=== PATIENT | female | born 1930 | race Caucasian/White ===

== ENCOUNTER 2018-02-20 13:21 | Inpatient (IN) | payer MEDICARE ==
--- NOTE | 2018-02-20 14:39 | ED PDOC ---
Addendum entered and electronically signed by Julia Williamson PA-C 02/20/18 15:32: Addendum Addendum: 02/20/18 15:32 Pt comfortable at rest, declined analgesics upon arrival Original Note: HPI: Trauma/Fall - HPI Time Seen by Provider: 02/20/18 14:12 Chief Complaint (Nursing): Trauma Chief Complaint (Provider): Hip pain History Per: Patient Additional Complaint(s): 87 yo female, PMH of high cholesterol and DM, presents to ED S/P fall - patient states she missed a step and fell onto her left hip. Unable to ambulate after incident, Pt was carried by [employer] members to bench. Pt denies any head injury, offers no other physical complaints. Pt with left hip externally rotated and shortened in comparison to right. PMD; Demarcco Past Medical History Reviewed: Nursing Documentation, Vital Signs Vital Signs: Last Vital Signs Temp 97.9 F 02/20/18 13:26 Pulse 80 02/20/18 13:26 Resp 18 02/20/18 13:26 BP 139/70 02/20/18 13:26 Pulse Ox 94 L 02/20/18 13:26 - Medical History PMH: HTN, Hypercholesterolemia - Family History Family History: States: Unknown Family Hx - Living Arrangements Living Arrangements: With Family - Social History Current smoker - smoking cessation education provided: No Alcohol: None Drugs: Denies - Home Medications Home Medications: Ambulatory Orders Medication Instructions Recorded Allopurinol [Zyloprim] 100 mg PO DAILY 02/20/18 Simvastatin [Zocor] 20 mg PO HS 02/20/18 Triamterene/Hydrochlorothiazid 1 cap PO DAILY 02/20/18 [Triamterene-Hctz 37.5-25 mg Cp] metFORMIN [glucOPHAGE] 500 mg PO DAILY 02/20/18 - Allergies Allergies/Adverse Reactions: Allergies Allergy/AdvReac Type Severity Reaction Status Date / Time No Known Allergies Allergy Verified 02/20/18 13:26 Review of Systems ROS Statement: Except As Marked, All Systems Reviewed And Found Negative Musculoskeletal: Positive for: Other (L hip pain) Physical Exam - Reviewed Nursing Documentation Reviewed: Yes Vital Signs Reviewed: Yes - Physical Exam Appears: Positive for: Well, Non-toxic, No Acute Distress Head Exam: Positive for: ATRAUMATIC, NORMAL INSPECTION, NORMOCEPHALIC Skin: Positive for: Normal Color, Warm, DRY Eye Exam: Positive for: EOMI, Normal appearance, PERRL ENT: Positive for: Normal ENT Inspection Neck: Positive for: Normal, Painless ROM Cardiovascular/Chest: Positive for: Regular Rate, Rhythm Respiratory: Positive for: CNT, Normal Breath Sounds Gastrointestinal/Abdominal: Positive for: Normal Exam, Soft Back: Positive for: Normal Inspection Extremity: Positive for: Tenderness (L hip), Deformity (shortened and externally rotated) Neurologic/Psych: Positive for: Alert, Oriented - ECG O2 Sat by Pulse Oximetry: 94 Medical Decision Making Medical Decision Making: IV access established and prophylactic pre-op testing obtained XR: (+) L femoral neck fx, as read by PA-C Hospitalist contacted and made aware. Arrangements made for admission. Case d/w Dr. Dyer Disposition - Clinical Impression Clinical Impression: Hip fracture, left - Patient ED Disposition Is Patient to be Admitted: Yes - Disposition Disposition Time: 15:31 Condition: STABLE Forms: [employer] (Paraguayan) - Pt Status Changed To: Hospital Disposition Of: Inpatient - Admit Certification Admit to Inpatient:: After my assessment, the patient will require hospitalization for at least two midnights. This is because of the severity of symptoms shown, intensity of services needed, and/or the medical risk in this patient being treated as an outpatient. - POA Present On Arrival: Falls Or Trauma
--- NOTE | 2018-02-20 15:16 | RAD ---
Date of service: 02/20/2018 PROCEDURE: CHEST RADIOGRAPH, 1 VIEW HISTORY: pre op COMPARISON: None available. FINDINGS: LUNGS: The lungs are well inflated and clear. PLEURA: No pneumothorax or pleural effusion. CARDIOVASCULAR: The heart is normal in size. No aortic atherosclerotic calcifications present. OSSEOUS STRUCTURES: There is mild dextroscoliosis in the thoracic spine. VISUALIZED UPPER ABDOMEN: Normal. OTHER FINDINGS: None. IMPRESSION: No active pulmonary disease.
--- NOTE | 2018-02-20 15:31 | RAD ---
PROCEDURE: Left Hip X-ray Radiographs. HISTORY: fall, externally rotated LLE COMPARISON: None. FINDINGS: BONES: Left hip subcapital femoral neck fracture with mild superior migration of the distal fracture segment. JOINTS: Spine and bilateral hip degenerative changes. SOFT TISSUES: Normal. OTHER FINDINGS: None. IMPRESSION: Left subcapital femoral neck fracture.
--- NOTE | 2018-02-20 15:38 | CT ---
PROCEDURE: CT scan of the left hip without contrast INDICATION: Fall TECHNIQUE: Multiple axial images were obtained with slice thickness of 2.5 mm. Coronal and sagittal reformatted images were obtained. Iterative reconstruction was used. Radiation dose: Total exam DLP = 435.47 mGy-cm. This CT exam was performed using one or more of the following dose reduction techniques: Automated exposure control, adjustment of the mA and/or kV according to patient size, and/or use of iterative reconstruction technique. COMPARISON: Plain radiographs performed the same day FINDINGS: There is an acute nondisplaced mildly impacted left femoral subcapital fracture with 8 mm distraction of fracture fragments superior laterally. There is diffuse bone demineralization. Bone alignment is normal. The left hip joint space is preserved. The visualized muscles and soft tissues are normal. There is mild subcutaneous edema. IMPRESSION: Acute nondisplaced mildly impacted left femoral subcapital fracture with 8 mm distraction of fracture fragments superolaterally. No dislocation.
--- NOTE | 2018-02-20 16:30 | CP.PCM.HP ---
<Jael Chaney - Last Filed: 02/20/18 17:34> History of Present Illness - History of Present Illness History of Present Illness: 87 yo female with history of diabetes?, hypercholesterolemia, gout presented to ED due to fall. She fell when she slipped down the steps at [employer] and landed on her left hip. Pt was carried by [employer] members to bench. Pt denies any head injury, offers no other physical complaints. Hip imaging showed left subcapital femoral neck fracture. Hip CT showed acute nondisplaced mildly impacted left femoral subcapital fracture with 8 mm distraction of fracture fragments superolaterally, no dislocation. CXR done in ED - no active pulmonary disease PMD: Dr. Gomez Meds: Metformin, Simvastatin, Allopurinol, Dyazide, Meclezine PRN Past Surg hx: hysterectomy, bladder prolapse surg? Social hx: denies smoking currently (had smoked 30+ yrs ago), alcohol, drugs Family hx: noncontributory Present on Admission - Present on Admission Any Indicators Present on Admission: No Review of Systems - Review of Systems All systems: reviewed and no additional remarkable complaints except - Cardiovascular Cardiovascular: absent: Chest Pain - Respiratory Respiratory: absent: Dyspnea - Gastrointestinal Gastrointestinal: absent: Abdominal Pain - Musculoskeletal Musculoskeletal: Limited Range of Motion (hip) Past Patient History - Past Social History Smoking Status: Former Smoker Alcohol: None Drugs: Denies - CARDIAC Hx Cardiac Disorders: Yes Hx Hypercholesterolemia: Yes - PULMONARY Hx Respiratory Disorders: No - NEUROLOGICAL Hx Neurological Disorder: No - HEENT Hx HEENT Problems: No - SURGICAL HISTORY Hx Hysterectomy: Yes - ANESTHESIA Hx Anesthesia: Yes Meds Allergies/Adverse Reactions: Allergies Allergy/AdvReac Type Severity Reaction Status Date / Time No Known Allergies Allergy Verified 02/20/18 13:26 Physical Exam - Constitutional Appears: Non-toxic, No Acute Distress - Head Exam Head Exam: NORMAL INSPECTION - Eye Exam Eye Exam: Normal appearance - ENT Exam ENT Exam: Mucous Membranes Moist - Respiratory Exam Respiratory Exam: NORMAL BREATHING PATTERN - Cardiovascular Exam Cardiovascular Exam: REGULAR RHYTHM, +S1, +S2 - GI/Abdominal Exam GI & Abdominal Exam: Normal Bowel Sounds, Soft - Extremities Exam Extremities exam: Negative for: calf tenderness Additional comments: left lower extremity externally rotated and shortened in comparison to right - Neurological Exam Neurological exam: Alert Additional comments: Oriented - Psychiatric Exam Psychiatric exam: Normal Affect - Skin Skin Exam: Dry, Warm Results - Vital Signs Recent Vital Signs: Last Vital Signs Temp 97.9 F 02/20/18 13:26 Pulse 80 02/20/18 13:26 Resp 18 02/20/18 13:26 BP 139/70 02/20/18 13:26 Pulse Ox 94 L 02/20/18 15:31 - Labs Result Diagrams: 02/20/18 16:00 02/20/18 16:00 Assessment & Plan - Assessment and Plan (Free Text) Assessment: 87 yo F with history of diabetes, hypercholesterolemia, gout, with acute left hip fracture. Pt is hemodynamically stable. Ortho has been consulted, pending OR, possibly tomorrow. Will need cardiac clearance prior to OR. Plan: 1. S/p acute left hip fracture - Ortho consult; possible OR tomorrow afternoon - Needs cardiac clearance - Dr. Hammer consulted; echo ordered - Pain control - CBC, BMP ordered for morning - Type and Screen pending - CXR no active disease 2. Diabetes - Hold metformin for now - Accuchecks ACHS - Insulin coverage scale and hypoglycemia protocol 3. Hypercholesterolemia - Continue home statin 4. Gout - Continue home med allopurinol 5. Diet - NPO after midnight for possible OR tomorrow - IV NS 80 ml/hr 6. DVT prophylaxis - SCD for now <Sandip Buitrago D - Last Filed: 02/20/18 17:37> Results - Vital Signs Recent Vital Signs: Last Vital Signs Temp 97.9 F 02/20/18 13:26 Pulse 80 02/20/18 13:26 Resp 18 02/20/18 13:26 BP 139/70 02/20/18 13:26 Pulse Ox 94 L 02/20/18 15:31 - Labs Result Diagrams: 02/20/18 16:00 02/20/18 16:00 Labs: Laboratory Results - last 24 hr 02/20/18 02/20/18 02/20/18 16:00 16:00 16:00 WBC 10.8 D RBC 4.80 Hgb 14.3 Hct 43.2 MCV 90.1 D MCH 29.8 MCHC 33.1 RDW 13.7 Plt Count 247 MPV 8.0 Neut % (Auto) 68.7 Lymph % (Auto) 19.1 L [place] % (Auto) 9.6 Eos % (Auto) 2.1 Baso % (Auto) 0.5 Neut # (Auto) 7.4 H Lymph # (Auto) 2.1 [place] # (Auto) 1.0 H Eos # (Auto) 0.2 Baso # (Auto) 0.1 Sodium 137 Potassium 5.8 H Chloride 97 L Carbon Dioxide 27 Anion Gap 19 BUN 23 H Creatinine 0.8 Est GFR ( Amer) > 60 Est GFR (Non-Af Amer) > 60 Random Glucose 85 Calcium 9.7 Total Bilirubin 1.6 H AST 60 H D ALT < 6 L D Alkaline Phosphatase 76 Total Protein 9.1 H Albumin 4.9 Globulin 4.2 H Albumin/Globulin Ratio 1.2 BBK History Checked No verified bt Attending/Attestation - Attestation I have personally seen and examined this patient.: Yes I have fully participated in the care of the patient.: Yes I have reviewed all pertinent clinical information: Yes Notes (Text): 02/20/18 17:36 Patient seen and examined with resident. Case was discussed and agreed with assessment and plan of management.
[2018-02-20 16:41] LABS: BASO # 0.1 K/uL (0.0-0.2); HEMOGLOBIN 14.3 g/dL (12.0-16.0); MEAN CORPUSCULAR HEMOGLOBIN 29.8 pg (27.0-31.0); MEAN CORPUSCULAR HGB CONC 33.1 g/dL (33.0-37.0); RBC 4.8 Mil/uL (3.80-5.20)
[2018-02-20 16:50] LABS: BLOOD UREA NITROGEN 23 mg/dl (7-17); CALCIUM 9.7 mg/dL (8.4-10.2); GFR NON-AFRICAN AMERICAN > 60
[2018-02-20 16:52] LABS: ALB/GLOB RATIO 1.2 (1.0-2.1); ALBUMIN 4.9 g/dL (3.5-5.0); ALT/SGPT < 6 U/L (9-52); AST/SGOT 60 U/L (14-36)
[2018-02-20 17:02] LABS: BASO % 0.5 % (0.0-2.0); EOS # 0.2 K/uL (0.0-0.7); EOS % 2.1 % (0.0-4.0); LYMPH # 2.1 K/uL (1.0-4.3); LYMPH % 19.1 % (20.0-40.0); MEAN CELL VOLUME 90.1 fl (81.0-99.0); MONO % 9.6 % (0.0-10.0); NEUT # 7.4 K/uL (1.8-7.0); NEUT % 68.7 % (50.0-75.0); NRBC % 0.1 % (0.0-0.0); RED CELL DISTRIBUTION WIDTH 13.7 % (11.5-14.5); WHITE BLOOD COUNT 10.8 K/uL (4.8-10.8)
--- NOTE | 2018-02-20 17:19 | CP.PCM.CON ---
History of Present Illness - History of Present Illness History of Present Illness: Orthopedic consultation: Dr. Dyer Patient is an 87 y/o female with PMH of HTN, NIDDM, HLD and gout who presents with left hip pain following a fall down 3 steps at a [employer] today. Orthopedics was consulted due to left femoral neck fracture. Patient denies dizziness prior to fall and LOC. She admits to pain located to the groin and lateral hip. The pain is constant, dull and aching. There is associated swelling and deformity. She denies radiation of pain/numbness/tingling. She also denies CP/SOB/N/V/D/fever/melena/dysuria. She denies any thromboembolic/cardiac events in the past. She notes that she is a fairly active and independent person that commutes to [facility] occassionally and does her own grocery shopping. She does not ambulate with a walking aid. Review of Systems - Review of Systems All systems: reviewed and no additional remarkable complaints except Review of Systems: as per HPI Past Patient History - Past Medical History & Family History Past Family History: Reviewed and not pertinent - Past Social History Smoking Status: Former Smoker Alcohol: None Drugs: Denies - CARDIAC Hx Cardiac Disorders: Yes Hx Hypercholesterolemia: Yes Hx Hypertension: Yes - PULMONARY Hx Respiratory Disorders: No Other/Comment: chronic cough - NEUROLOGICAL Hx Dizziness: Yes - HEENT Hx HEENT Problems: No - RENAL Hx Kidney Stones: Yes - ENDOCRINE/METABOLIC Hx Diabetes Mellitus Type 2: Yes - HEMATOLOGICAL/ONCOLOGICAL Hx Blood Disorders: No - INTEGUMENTARY Hx Dermatological Problems: No - MUSCULOSKELETAL/RHEUMATOLOGICAL Hx Arthritis: Yes (hands) - GASTROINTESTINAL Hx Gastrointestinal Disorders: No - PSYCHIATRIC Hx Substance Use: No - SURGICAL HISTORY Hx Surgeries: Yes Hx Appendectomy: Yes Hx Hysterectomy: Yes Hx Tonsillectomy: Yes Other/Comment: bladder prolapse correction - ANESTHESIA Hx Anesthesia: Yes Meds Allergies/Adverse Reactions: Allergies Allergy/AdvReac Type Severity Reaction Status Date / Time No Known Allergies Allergy Verified 02/20/18 13:26 - Medications Medications: Current Medications Acetaminophen (Tylenol 325mg Tab) 650 mg PO Q4 PRN PRN Reason: Pain, Mild (1-3) Allopurinol (Zyloprim) 100 mg PO DAILY NEREYDA Cholecalciferol (Vitamin D) intlu PO DAILY NEREYDA Docusate Sodium (Colace) 100 mg PO BID NEREYDA Ibuprofen (Motrin Tab) 600 mg PO Q8 PRN PRN Reason: Pain, moderate (4-7) Meclizine HCl (Antivert) 12.5 mg PO Q12 PRN PRN Reason: Dizziness Metformin HCl (Glucophage) 500 mg PO DAILY [facility] Pantoprazole Sodium (Protonix Ec Tab) 40 mg PO DAILY [facility] Triamterene/HCTZ (Dyazide 25 Mg-37.5 Mg) 1 cap PO DAILY NEREYDA Physical Exam - Constitutional Appears: Well, No Acute Distress - Head Exam Head Exam: ATRAUMATIC, NORMOCEPHALIC - Eye Exam Eye Exam: EOMI, Normal appearance, PERRL - ENT Exam ENT Exam: Mucous Membranes Moist - Respiratory Exam Respiratory Exam: NORMAL BREATHING PATTERN - Cardiovascular Exam Cardiovascular Exam: +S1, +S2 - GI/Abdominal Exam GI & Abdominal Exam: Soft. absent: Tenderness - Extremities Exam Additional comments: L hip: tenderness at over greater troch and groin no lesions, no masses + externally rotated/shortened limb sensation intact SP/DP/TN motor intact EHL/FHL/TA/G pedal pulses intact calves soft NT b/l - Neurological Exam Neurological exam: Alert, Oriented x3 - Psychiatric Exam Psychiatric exam: Normal Affect, Normal Mood - Skin Skin Exam: Normal Color, Warm Results - Vital Signs Recent Vital Signs: Last Vital Signs Temp 97.9 F 02/20/18 13:26 Pulse 80 02/20/18 13:26 Resp 18 02/20/18 13:26 BP 139/70 02/20/18 13:26 Pulse Ox 94 L 02/20/18 15:31 - Labs Result Diagrams: 02/20/18 16:00 02/20/18 16:00 Labs: Laboratory Results - last 24 hr 02/20/18 02/20/18 02/20/18 16:00 16:00 16:00 WBC 10.8 D RBC 4.80 Hgb 14.3 Hct 43.2 MCV 90.1 D MCH 29.8 MCHC 33.1 RDW 13.7 Plt Count 247 MPV 8.0 Neut % (Auto) 68.7 Lymph % (Auto) 19.1 L [place] % (Auto) 9.6 Eos % (Auto) 2.1 Baso % (Auto) 0.5 Neut # (Auto) 7.4 H Lymph # (Auto) 2.1 [place] # (Auto) 1.0 H Eos # (Auto) 0.2 Baso # (Auto) 0.1 Sodium 137 Potassium 5.8 H Chloride 97 L Carbon Dioxide 27 Anion Gap 19 BUN 23 H Creatinine 0.8 Est GFR ( Amer) > 60 Est GFR (Non-Af Amer) > 60 Random Glucose 85 Calcium 9.7 Total Bilirubin 1.6 H AST 60 H D ALT < 6 L D Alkaline Phosphatase 76 Total Protein 9.1 H Albumin 4.9 Globulin 4.2 H Albumin/Globulin Ratio 1.2 BBK History Checked No verified bt - Impressions Impression: Accession No. : [id number] Patient Name / ID : NATI Thomson [id number] Exam Date : 02/20/2018 14:43:35 ( Approved ) Study Comment : Sex / Age : F / 87Y Creator : Mauricio Bruce MD Dictator : Mauricio Bruce MD Palliative Nurse : Painter : Mauricio Bruce MD Approver2 : Report Date : 02/20/2018 15:27:33 My Comment : PROCEDURE: Left Hip X-ray Radiographs. HISTORY: fall, externally rotated LLE COMPARISON: None. FINDINGS: BONES: Left hip subcapital femoral neck fracture with mild superior migration of the distal fracture segment. JOINTS: Spine and bilateral hip degenerative changes. SOFT TISSUES: Normal. OTHER FINDINGS: None. IMPRESSION: Left subcapital femoral neck fracture. Accession No. : [id number] Patient Name / ID : NATI Thomson [id number] Exam Date : 02/20/2018 15:10:47 ( Approved ) Study Comment : Sex / Age : F / 87Y Creator : Kelin Johnson MD Dictator : Kelin Johnson MD Palliative Nurse : Painter : Kelin Johnson MD Approver2 : Report Date : 02/20/2018 15:34:29 My Comment : PROCEDURE: CT scan of the left hip without contrast INDICATION: Fall TECHNIQUE: Multiple axial images were obtained with slice thickness of 2.5 mm. Coronal and sagittal reformatted images were obtained. Iterative reconstruction was used. Radiation dose: Total exam DLP = 435.47 mGy-cm. This CT exam was performed using one or more of the following dose reduction techniques: Automated exposure control, adjustment of the mA and/or kV according to patient size, and/or use of iterative reconstruction technique. COMPARISON: Plain radiographs performed the same day FINDINGS: There is an acute nondisplaced mildly impacted left femoral subcapital fracture with 8 mm distraction of fracture fragments superior laterally. There is diffuse bone demineralization. Bone alignment is normal. The left hip joint space is preserved. The visualized muscles and soft tissues are normal. There is mild subcutaneous edema. IMPRESSION: Acute nondisplaced mildly impacted left femoral subcapital fracture with 8 mm distraction of fracture fragments superolaterally. No dislocation. Assessment & Plan (1) Left displaced femoral neck fracture Assessment and Plan: -Dr. Dyer recommends surgical management with L MELISSA due to patient's level of activity -Risks/benefits/alternatives were explained to patient and son who understand and agree to proceed with above procedure -NPO PMN -plan for OR tomorrow afternoon 3 PM -Medical/cardiac clearance -UA, echo -above d/w Dr. Dyer in agreement Status: Acute
[2018-02-20] MEDS ORDERED: Glucagon Recombinant 1 mg Inj IM PRN (17:36)
[2018-02-20] MEDS ORDERED: Dextrose 50% SYRINGE Inj (50 ml) IV PRN (17:36)
[2018-02-20 18:14] LABS: SQUAMOUS EPITHIAL 7 /hpf (0-5); URINE AMORPHOUS SEDIMENT OCC /ul (<OCC); URINE BACTERIA RARE (<OCC); URINE BILIRUBIN NEGATIVE (NEGATIVE); URINE BLOOD LARGE (NEGATIVE); URINE CLARITY CLOUDY (Clear); URINE COLOR YELLOW (YELLOW); URINE GLUCOSE (UA) NEG (Normal); URINE LEUKOCYTE ESTERASE NEG Leu/uL (Negative); URINE PROTEIN 30 mg/dL (NEGATIVE); URINE UROBILINOGEN 0.2-1.0 mg/dL (0.2-1.0)
[2018-02-20] MEDS: Sodium Chloride 0.9% 1,000 ML IV SCH (22:16)
[2018-02-20] MEDS: Pantoprazole 40 mg EC Tab PO SCH (22:57)
[2018-02-21 06:36] LABS: BASO # 0.1 K/uL (0.0-0.2); BASO % 0.6 % (0.0-2.0); EOS # 0.3 K/uL (0.0-0.7); EOS % 3.4 % (0.0-4.0); HEMOGLOBIN 12.5 g/dL (12.0-16.0); LYMPH % 21.7 % (20.0-40.0); MEAN CELL VOLUME 90.2 fl (81.0-99.0); MEAN CORPUSCULAR HEMOGLOBIN 29.5 pg (27.0-31.0); MEAN CORPUSCULAR HGB CONC 32.7 g/dL (33.0-37.0); MEAN PLATELET VOLUME 7.8 fl (7.2-11.7); MONO # 1.1 K/uL (0.0-0.8); MONO % 12.2 % (0.0-10.0); NEUT # 5.7 K/uL (1.8-7.0); NEUT % 62.1 % (50.0-75.0); RBC 4.25 Mil/uL (3.80-5.20); RED CELL DISTRIBUTION WIDTH 13.5 % (11.5-14.5); WHITE BLOOD COUNT 9.2 K/uL (4.8-10.8)
[2018-02-21 06:51] LABS: BLOOD UREA NITROGEN 21 mg/dl (7-17); GFR NON-AFRICAN AMERICAN 59
[2018-02-21] MEDS: Pantoprazole 40 mg EC Tab PO SCH (08:13)
[2018-02-21] MEDS: Cholecalciferol 1,000 INTLU TAB PO SCH (08:14)
--- NOTE | 2018-02-21 09:03 | CP.PCM.CON ---
History of Present Illness - History of Present Illness History of Present Illness: THE PATIENT IS AN 87 YEAR OLD FEMALE WHO TRIPPED GOING DOWN STAIRS AND BROKE HER LEFT HIP. SHE ALSO HAS A HISTORY OF HYPERLIPIDEMIA AND TYPE 2 DM. CARDIOLOGY WAS ASKED TO SEE HER PRIOR TO LEFT HIP SURGERY. SHE DENIES DIZZINESS, NEAR- SYNCOPE OR SYNCOPE STATING SHE SIMPLY TRIPPED AND FELL. SHE DENIES CAD, HYPERTENSION, COPD, PUD OR ANY OTHER MAJOR MEDICAL PROBLEMS. Past Patient History - Past Medical History & Family History Past Medical History?: Yes - Past Social History Smoking Status: Former Smoker - CARDIAC Hx Cardiac Disorders: Yes Hx Hypercholesterolemia: Yes - PULMONARY Hx Respiratory Disorders: Yes Other/Comment: occasional cough - NEUROLOGICAL Hx Neurological Disorder: Yes Hx Dizziness: Yes - HEENT Hx HEENT Problems: No - RENAL Hx Chronic Kidney Disease: No Other/Comment: bladder prolapse - ENDOCRINE/METABOLIC Hx Endocrine Disorders: Yes Hx Diabetes Mellitus Type 1: Yes - HEMATOLOGICAL/ONCOLOGICAL Hx Blood Disorders: No Hx AIDS: No Hx Human Immunodeficiency Virus (HIV): No - INTEGUMENTARY Hx Dermatological Problems: No - MUSCULOSKELETAL/RHEUMATOLOGICAL Hx Musculoskeletal Disorders: Yes Hx Falls: No - GASTROINTESTINAL Hx Gastrointestinal Disorders: No - GENITOURINARY/GYNECOLOGICAL Hx Genitourinary Disorders: No - PSYCHIATRIC Hx Psychophysiologic Disorder: No Hx Substance Use: No - SURGICAL HISTORY Hx Surgeries: Yes Hx Appendectomy: Yes Hx Hysterectomy: Yes Hx Tonsillectomy: Yes Other/Comment: bladder prolapse correction - ANESTHESIA Hx Anesthesia: Yes Hx Anesthesia Reactions: No Hx Malignant Hyperthermia: No Meds Allergies/Adverse Reactions: Allergies Allergy/AdvReac Type Severity Reaction Status Date / Time No Known Allergies Allergy Verified 02/20/18 13:26 - Medications Medications: Current Medications Acetaminophen (Tylenol 325mg Tab) 650 mg PO Q4 PRN PRN Reason: Pain, Mild (1-3) Last Admin: 02/21/18 03:24 Dose: 650 mg Allopurinol (Zyloprim) 100 mg PO DAILY [facility] Last Admin: 02/21/18 08:14 Dose: Not Given Cholecalciferol (Vitamin D) 1,000 intlu PO DAILY [facility] Last Admin: 02/21/18 08:14 Dose: Not Given Dextrose (Dextrose 50% Inj) 0 ml IV STAT PRN; Protocol PRN Reason: Hypoglycemia Protocol Dextrose (Glutose 15) 0 gm PO ONCE PRN; Protocol PRN Reason: Hypoglycemia Protocol Docusate Sodium (Colace) 100 mg PO BID [facility] Last Admin: 02/21/18 08:13 Dose: Not Given Glucagon (Glucagen Diagnostic Kit) 0 mg IM STAT PRN; Protocol PRN Reason: Hypoglycemia Protocol Sodium Chloride (Sodium Chloride 0.9%) 1,000 mls @ 80 mls/hr IV .[id number] [facility] Stop: 02/21/18 17:34 Last Admin: 02/20/18 22:16 Dose: 80 mls/hr Meclizine HCl (Antivert) 12.5 mg PO Q12 PRN PRN Reason: Dizziness Metformin HCl (Glucophage) 500 mg PO DAILY [facility] Pantoprazole Sodium (Protonix Ec Tab) 40 mg PO DAILY [facility] Last Admin: 02/21/18 08:13 Dose: Not Given Triamterene/HCTZ (Dyazide 25 Mg-37.5 Mg) 1 cap PO DAILY [facility] Physical Exam - Respiratory Exam Respiratory Exam: Clear to Auscultation Bilateral - Cardiovascular Exam Cardiovascular Exam: REGULAR RHYTHM, +S1, +S2 - Extremities Exam Additional comments: NO EDEMA OF LOWER EXTREMITIES - Additional Findings Additional findings: EKG NSR K+ 3.4 T. BILI, PROTEIN AND ALBUMEN ELEVATED CXR NAD LEFT HIP X-RAY WITH LEFT FEMORAL NECK FX ECHO REVIEWED BY ME AND HAS GOOD LV FUNCTION Results - Vital Signs Recent Vital Signs: Last Vital Signs Temp 97.9 F 02/21/18 08:36 Pulse 74 02/21/18 08:36 Resp 20 02/21/18 08:36 BP 120/70 02/21/18 08:36 Pulse Ox 95 02/21/18 08:36 - Labs Result Diagrams: 02/21/18 05:35 02/21/18 05:35 Labs: Laboratory Results - last 24 hr 02/20/18 02/20/18 02/20/18 16:00 16:00 16:00 WBC 10.8 D RBC 4.80 Hgb 14.3 Hct 43.2 MCV 90.1 D MCH 29.8 MCHC 33.1 RDW 13.7 Plt Count 247 MPV 8.0 Neut % (Auto) 68.7 Lymph % (Auto) 19.1 L [place] % (Auto) 9.6 Eos % (Auto) 2.1 Baso % (Auto) 0.5 Neut # (Auto) 7.4 H Lymph # (Auto) 2.1 Ray # (Auto) 1.0 H Eos # (Auto) 0.2 Baso # (Auto) 0.1 Sodium 137 Potassium 5.8 H Chloride 97 L Carbon Dioxide 27 Anion Gap 19 BUN 23 H Creatinine 0.8 Est GFR ( Amer) > 60 Est GFR (Non-Af Amer) > 60 POC Glucose (mg/dL) Random Glucose 85 Calcium 9.7 Total Bilirubin 1.6 H AST 60 H D ALT < 6 L D Alkaline Phosphatase 76 Total Protein 9.1 H Albumin 4.9 Globulin 4.2 H Albumin/Globulin Ratio 1.2 Urine Color Urine Clarity Urine pH Ur Specific [place] Urine Protein Urine Glucose (UA) Urine Ketones Urine Blood Urine Nitrate Urine Bilirubin Urine Urobilinogen Ur Leukocyte Esterase Urine RBC (Auto) Urine Microscopic WBC Ur Squamous Epith Cells Amorphous Sediment Urine Bacteria Blood Type A POSITIVE Blood Type Confirm Antibody Screen Negative BBK History Checked No verified bt 02/20/18 02/20/18 02/20/18 16:10 17:51 22:53 WBC RBC Hgb Hct MCV MCH MCHC RDW Plt Count MPV Neut % (Auto) Lymph % (Auto) [place] % (Auto) Eos % (Auto) Baso % (Auto) Neut # (Auto) Lymph # (Auto) Ray # (Auto) Eos # (Auto) Baso # (Auto) Sodium Potassium Chloride Carbon Dioxide Anion Gap BUN Creatinine Est GFR ( Amer) Est GFR (Non-Af Amer) POC Glucose (mg/dL) 139 H Random Glucose Calcium Total Bilirubin AST ALT Alkaline Phosphatase Total Protein Albumin Globulin Albumin/Globulin Ratio Urine Color Yellow Urine Clarity Cloudy Urine pH 7.0 Ur Specific [place] 1.013 Urine Protein 30 Urine Glucose (UA) Neg Urine Ketones Negative Urine Blood Large Urine Nitrate Negative Urine Bilirubin Negative Urine Urobilinogen 0.2-1.0 Ur Leukocyte Esterase Neg Urine RBC (Auto) 25 H Urine Microscopic WBC 4 Ur Squamous Epith Cells 7 H Amorphous Sediment Occ H Urine Bacteria Rare Blood Type Blood Type Confirm A POSITIVE Antibody Screen BBK History Checked 02/21/18 02/21/18 02/21/18 05:35 05:35 06:12 WBC 9.2 RBC 4.25 Hgb 12.5 Hct 38.3 MCV 90.2 MCH 29.5 MCHC 32.7 L RDW 13.5 Plt Count 240 MPV 7.8 Neut % (Auto) 62.1 Lymph % (Auto) 21.7 Ray % (Auto) 12.2 H Eos % (Auto) 3.4 Baso % (Auto) 0.6 Neut # (Auto) 5.7 Lymph # (Auto) 2.0 Ray # (Auto) 1.1 H Eos # (Auto) 0.3 Baso # (Auto) 0.1 Sodium 136 Potassium 3.4 L Chloride 97 L Carbon Dioxide 28 Anion Gap 14 BUN 21 H Creatinine 0.9 Est GFR ( Amer) > 60 Est GFR (Non-Af Amer) 59 POC Glucose (mg/dL) 127 H Random Glucose 115 H Calcium 9.0 Total Bilirubin AST ALT Alkaline Phosphatase Total Protein Albumin Globulin Albumin/Globulin Ratio Urine Color Urine Clarity Urine pH Ur Specific [place] Urine Protein Urine Glucose (UA) Urine Ketones Urine Blood Urine Nitrate Urine Bilirubin Urine Urobilinogen Ur Leukocyte Esterase Urine RBC (Auto) Urine Microscopic WBC Ur Squamous Epith Cells Amorphous Sediment Urine Bacteria Blood Type Blood Type Confirm Antibody Screen BBK History Checked Assessment & Plan - Assessment and Plan (Free Text) Assessment: FALL WITH LEFT HIP FRACTURE HYPERLIPIDEMIA ELEVATED LFT AND PROTEIN LEVELS Plan: I SPOKE TO THE HOSPITALIST AND WE WILL REPEAT LFT(AFTER HYDRATION), DO AN INR AND GIVE HER A SMALL DOSE OF KCL AND THEN REEVALUATE
[2018-02-21] MEDS: hydroCHLOROthiazide-Triamterene 25 mg-37.5 mg Cap UD PO SCH (09:33)
[2018-02-21] MEDS ORDERED: Potassium Chloride 20 mEq ER Tab PO ONE (09:56)
--- NOTE | 2018-02-21 10:17 | CP.PCM.PN ---
Addendum entered and electronically signed by Paresh Hall MD 02/22/18 01:25: Patient was seen and examined after surgery, POD#0 S/p L THR, patient denies any pain, reports she is tired. No n/v/f, no PO intake yet, not voided O: VS: Reviewed, CV: RRR, Pulm: CTBL A/P: 87 y/o F POD#0 S/p L THR - Continue pain management - Continue management as per Ortho - I-Spirometer - Encourage PO intake - PT eval - DVT PPx --- Paresh Hall, PGY-II Addendum entered by Hetal Esqueda MD 02/21/18 18:26: Surrogate Decision maker -phill Storm Original Note: <Jael Chaney - Last Filed: 02/21/18 12:24> Subjective - Date & Time of Evaluation Date of Evaluation: 02/21/18 Time of Evaluation: 09:10 - Subjective Subjective: Pt seen and examined at bedside this am; no acute events overnight. Pending cardiac and pulm clearance for OR today for left hip replacement. Objective - Vital Signs/Intake and Output Vital Signs (last 24 hours): Temp Pulse Resp BP Pulse Ox 97.9 F 74 20 120/70 95 02/21/18 08:36 02/21/18 08:36 02/21/18 08:36 02/21/18 08:36 02/21/18 08:36 Intake and Output: 02/21/18 02/21/18 06:59 18:59 Intake Total 880 Output Total 1300 Balance -420 - Medications Medications: Current Medications Acetaminophen (Tylenol 325mg Tab) 650 mg PO Q4 PRN PRN Reason: Pain, Mild (1-3) Last Admin: 02/21/18 03:24 Dose: 650 mg Allopurinol (Zyloprim) 100 mg PO DAILY [facility] Last Admin: 02/21/18 08:14 Dose: Not Given Cholecalciferol (Vitamin D) 1,000 intlu PO DAILY [facility] Last Admin: 02/21/18 08:14 Dose: Not Given Dextrose (Dextrose 50% Inj) 0 ml IV STAT PRN; Protocol PRN Reason: Hypoglycemia Protocol Dextrose (Glutose 15) 0 gm PO ONCE PRN; Protocol PRN Reason: Hypoglycemia Protocol Docusate Sodium (Colace) 100 mg PO BID [facility] Last Admin: 02/21/18 08:13 Dose: Not Given Glucagon (Glucagen Diagnostic Kit) 0 mg IM STAT PRN; Protocol PRN Reason: Hypoglycemia Protocol Sodium Chloride (Sodium Chloride 0.9%) 1,000 mls @ 80 mls/hr IV .[id number] [facility] Stop: 02/21/18 17:34 Last Admin: 02/20/18 22:16 Dose: 80 mls/hr Potassium Chloride (Potassium Chloride 20 Meq/100 Ml) 100 mls @ 50 mls/hr IVPB ONCE [facility] Stop: 02/21/18 12:29 Meclizine HCl (Antivert) 12.5 mg PO Q12 PRN PRN Reason: Dizziness Metformin HCl (Glucophage) 500 mg PO DAILY [facility] Pantoprazole Sodium (Protonix Ec Tab) 40 mg PO DAILY [facility] Last Admin: 02/21/18 08:13 Dose: Not Given Triamterene/HCTZ (Dyazide 25 Mg-37.5 Mg) 1 cap PO DAILY [facility] Last Admin: 02/21/18 09:33 Dose: Not Given - Labs Labs: 02/21/18 05:35 02/21/18 05:35 - Constitutional Appears: No Acute Distress - Head Exam Head Exam: NORMAL INSPECTION, NORMOCEPHALIC - Respiratory Exam Respiratory Exam: Clear to Ausculation Bilateral, NORMAL BREATHING PATTERN - Cardiovascular Exam Cardiovascular Exam: REGULAR RHYTHM, +S1, +S2 - GI/Abdominal Exam GI & Abdominal Exam: Soft, Normal Bowel Sounds - Extremities Exam Additional comments: LLE w/ traction extremities warm, able to move toes, moves right lower extremity freely - Neurological Exam Neurological Exam: Alert - Skin Skin Exam: Dry, Normal Color, Warm Assessment and Plan - Assessment and Plan (Free Text) Assessment: 87 yo F with history of diabetes, hypercholesterolemia, gout, with acute left hip fracture. For OR today after cardio/pulm clearance. Plan: 1. S/p acute left hip fracture - Ortho consult; planned OR this afternoon - Needs cardiac/pulm clearance - Dr. Hammer, Dr. Jackson - Echo this am; CXR no active disease - Pain control 2. Diabetes - Hold metformin for now - Accuchecks ACHS - Insulin coverage scale and hypoglycemia protocol 3. Hypercholesterolemia - Continue home statin 4. Gout - Continue home med allopurinol 5. Diet - Has been NPO overnight - IV NS 80 ml/hr 6. DVT prophylaxis - SCD for now <Hetal Esqueda - Last Filed: 02/21/18 16:31> Objective - Vital Signs/Intake and Output Vital Signs (last 24 hours): Temp Pulse Resp BP Pulse Ox 97.9 F 92 H 19 126/79 99 02/21/18 12:53 02/21/18 12:53 02/21/18 12:53 02/21/18 12:53 02/21/18 12:53 Intake and Output: 02/21/18 02/21/18 06:59 18:59 Intake Total 980 Output Total 1400 Balance -420 - Medications Medications: Current Medications Acetaminophen (Tylenol 325mg Tab) 650 mg PO Q6 [facility] Allopurinol (Zyloprim) 100 mg PO DAILY [facility] Last Admin: 02/21/18 08:14 Dose: Not Given Cholecalciferol (Vitamin D) 1,000 intlu PO DAILY [facility] Last Admin: 02/21/18 08:14 Dose: Not Given Dextrose (Dextrose 50% Inj) 0 ml IV STAT PRN; Protocol PRN Reason: Hypoglycemia Protocol Dextrose (Glutose 15) 0 gm PO ONCE PRN; Protocol PRN Reason: Hypoglycemia Protocol Docusate Sodium (Colace) 100 mg PO BID [facility] Last Admin: 02/21/18 08:13 Dose: Not Given Enoxaparin Sodium (Lovenox) 30 mg SC Q24H [facility]; Protocol Glucagon (Glucagen Diagnostic Kit) 0 mg IM STAT PRN; Protocol PRN Reason: Hypoglycemia Protocol Sodium Chloride (Sodium Chloride 0.9%) 1,000 mls @ 80 mls/hr IV .[id number] [facility] Stop: 02/21/18 17:34 Last Admin: 02/21/18 10:59 Dose: 80 mls/hr Cefazolin Sodium 1 gm/ Sodium (Chloride) 100 mls @ 100 mls/hr IVPB Q8H [facility]; Protocol Stop: 02/22/18 06:59 Meclizine HCl (Antivert) 12.5 mg PO Q12 PRN PRN Reason: Dizziness Metformin HCl (Glucophage) 500 mg PO DAILY [facility] Morphine Sulfate (Morphine) 2 mg IVP Q4 PRN PRN Reason: Pain, severe (8-10) Ondansetron HCl (Zofran Inj) 4 mg IVP Q6 PRN PRN Reason: Nausea/Vomiting Oxycodone HCl (Oxycodone Immediate Release Tab) 5 mg PO Q6 PRN PRN Reason: Pain, moderate (4-7) Pantoprazole Sodium (Protonix Ec Tab) 40 mg PO DAILY [facility] Last Admin: 02/21/18 08:13 Dose: Not Given Triamterene/HCTZ (Dyazide 25 Mg-37.5 Mg) 1 cap PO DAILY [facility] Last Admin: 02/21/18 09:33 Dose: Not Given - Labs Labs: 02/21/18 05:35 02/21/18 10:20 PT 12.1 Seconds (9.8-13.1) 02/21/18 10:20 INR 1.1 02/21/18 10:20 APTT 32.0 Seconds (25.6-37.1) 02/21/18 10:20 Attending/Attestation - Attestation I have personally seen and examined this patient.: Yes I have fully participated in the care of the patient.: Yes I have reviewed all pertinent clinical information, including history, physical exam and plan: Yes Notes (Text): Left Hip Fracture DM type II Hypokalemia - Patient was seen by Dr Matthews and Dr Jacskon for medical optimization , case discussed - K replaced with IV KCl runs
[2018-02-21] MEDS ORDERED: Potassium Chloride 20 mEq 100 ML IVPB ONE (10:30)
[2018-02-21 10:32] LABS: INR 1.1; PROTHROMBIN TIME 12.1 Seconds (9.8-13.1)
[2018-02-21 10:40] LABS: ALB/GLOB RATIO 1.2 (1.0-2.1); ALBUMIN 3.8 g/dL (3.5-5.0); ALT/SGPT 23 U/L (9-52); AST/SGOT 23 U/L (14-36); BILIRUBIN,DIRECT 0.1 mg/ml (0.0-0.4); BLOOD UREA NITROGEN 19 mg/dl (7-17); CALCIUM 9.3 mg/dL (8.4-10.2); GFR NON-AFRICAN AMERICAN 52
[2018-02-21] MEDS: Sodium Chloride 0.9% 1,000 ML IV SCH (10:59)
--- NOTE | 2018-02-21 11:17 | CP.PCM.CON ---
History of Present Illness - History of Present Illness History of Present Illness: This 87-year-old female was admitted to the hospital because of a slip and fall which resul of the left hip. She is known to me from the outpatient setting where she was seen approximately 2 years ago because of a chronic cough after w orkup. To be related to chronic seasonal allergic rhinitis and posterior rhinorrhea. Of note at that time where some pulmonary nodules which were first identified on the CT scan of the thorax which also showed a small consolidation in the left upper lobe thought to represent a pneumonic infiltrate. Subsequent CT scanning was performed in September 2015 which showed resolution of the majority of these findings the exception of a small 4 mm nodule which was still present in the right upper lobe. He had done well on that therapy and was last seen approximately 1-1/2 years ago, but had no further follow-up subsequently. He had been doing well until the present episode. Her past medical history includes hypertension, hyperlipidemia, vertigo with suspected Mnire's disease, cholelithiasis, apparent pneumonia based on CT findings, type 2 diabetes mellitus. There is no history of coronary artery di sease, peptic ulcer disease or liver disease. Past surgical history includes repair of a bladder prolapse. Family history includes chronic obstructive pulmonary disease. Social history includes former light cigarette smoker discontinued many years ago. No ethanol or illicit drug use by history. There are no known drug allergies. Past Patient History - Past Medical History & Family History Past Medical History?: Yes - Past Social History Smoking Status: Former Smoker - CARDIAC Hx Cardiac Disorders: Yes Hx Hypercholesterolemia: Yes - PULMONARY Hx Respiratory Disorders: Yes Other/Comment: occasional cough - NEUROLOGICAL Hx Neurological Disorder: Yes Hx Dizziness: Yes - HEENT Hx HEENT Problems: No - RENAL Hx Chronic Kidney Disease: No Other/Comment: bladder prolapse - ENDOCRINE/METABOLIC Hx Endocrine Disorders: Yes Hx Diabetes Mellitus Type 1: Yes - HEMATOLOGICAL/ONCOLOGICAL Hx Blood Disorders: No Hx AIDS: No Hx Human Immunodeficiency Virus (HIV): No - INTEGUMENTARY Hx Dermatological Problems: No - MUSCULOSKELETAL/RHEUMATOLOGICAL Hx Musculoskeletal Disorders: Yes Hx Falls: No - GASTROINTESTINAL Hx Gastrointestinal Disorders: No - GENITOURINARY/GYNECOLOGICAL Hx Genitourinary Disorders: No - PSYCHIATRIC Hx Psychophysiologic Disorder: No Hx Substance Use: No - SURGICAL HISTORY Hx Surgeries: Yes Hx Appendectomy: Yes Hx Hysterectomy: Yes Hx Tonsillectomy: Yes Other/Comment: bladder prolapse correction - ANESTHESIA Hx Anesthesia: Yes Hx Anesthesia Reactions: No Hx Malignant Hyperthermia: No Meds Allergies/Adverse Reactions: Allergies Allergy/AdvReac Type Severity Reaction Status Date / Time No Known Allergies Allergy Verified 02/20/18 13:26 - Medications Medications: Current Medications Acetaminophen (Tylenol 325mg Tab) 650 mg PO Q4 PRN PRN Reason: Pain, Mild (1-3) Last Admin: 02/21/18 03:24 Dose: 650 mg Allopurinol (Zyloprim) 100 mg PO DAILY [facility] Last Admin: 02/21/18 08:14 Dose: Not Given Cholecalciferol (Vitamin D) 1,000 intlu PO DAILY [facility] Last Admin: 02/21/18 08:14 Dose: Not Given Dextrose (Dextrose 50% Inj) 0 ml IV STAT PRN; Protocol PRN Reason: Hypoglycemia Protocol Dextrose (Glutose 15) 0 gm PO ONCE PRN; Protocol PRN Reason: Hypoglycemia Protocol Docusate Sodium (Colace) 100 mg PO BID [facility] Last Admin: 02/21/18 08:13 Dose: Not Given Glucagon (Glucagen Diagnostic Kit) 0 mg IM STAT PRN; Protocol PRN Reason: Hypoglycemia Protocol Sodium Chloride (Sodium Chloride 0.9%) 1,000 mls @ 80 mls/hr IV .[id number] [facility] Stop: 02/21/18 17:34 Last Admin: 02/21/18 10:59 Dose: 80 mls/hr Potassium Chloride (Potassium Chloride 20 Meq/100 Ml) 100 mls @ 50 mls/hr IVPB ONCE ONE Stop: 02/21/18 12:29 Last Admin: 02/21/18 10:51 Dose: 50 mls/hr Meclizine HCl (Antivert) 12.5 mg PO Q12 PRN PRN Reason: Dizziness Metformin HCl (Glucophage) 500 mg PO DAILY [facility] Pantoprazole Sodium (Protonix Ec Tab) 40 mg PO DAILY [facility] Last Admin: 02/21/18 08:13 Dose: Not Given Triamterene/HCTZ (Dyazide 25 Mg-37.5 Mg) 1 cap PO DAILY [facility] Last Admin: 02/21/18 09:33 Dose: Not Given Results - Vital Signs Recent Vital Signs: Last Vital Signs Temp 97.9 F 02/21/18 08:36 Pulse 74 02/21/18 08:36 Resp 20 02/21/18 08:36 BP 120/70 02/21/18 08:36 Pulse Ox 95 02/21/18 08:36 - Labs Result Diagrams: 02/21/18 05:35 02/21/18 10:20 Labs: Laboratory Results - last 24 hr 02/20/18 02/20/18 02/20/18 16:00 16:00 16:00 WBC 10.8 D RBC 4.80 Hgb 14.3 Hct 43.2 MCV 90.1 D MCH 29.8 MCHC 33.1 RDW 13.7 Plt Count 247 MPV 8.0 Neut % (Auto) 68.7 Lymph % (Auto) 19.1 L [place] % (Auto) 9.6 Eos % (Auto) 2.1 Baso % (Auto) 0.5 Neut # (Auto) 7.4 H Lymph # (Auto) 2.1 [place] # (Auto) 1.0 H Eos # (Auto) 0.2 Baso # (Auto) 0.1 PT INR APTT Sodium 137 Potassium 5.8 H Chloride 97 L Carbon Dioxide 27 Anion Gap 19 BUN 23 H Creatinine 0.8 Est GFR ( Amer) > 60 Est GFR (Non-Af Amer) > 60 POC Glucose (mg/dL) Random Glucose 85 Calcium 9.7 Total Bilirubin 1.6 H Direct Bilirubin AST 60 H D ALT < 6 L D Alkaline Phosphatase 76 Total Protein 9.1 H Albumin 4.9 Globulin 4.2 H Albumin/Globulin Ratio 1.2 Urine Color Urine Clarity Urine pH Ur Specific [place] Urine Protein Urine Glucose (UA) Urine Ketones Urine Blood Urine Nitrate Urine Bilirubin Urine Urobilinogen Ur Leukocyte Esterase Urine RBC (Auto) Urine Microscopic WBC Ur Squamous Epith Cells Amorphous Sediment Urine Bacteria Blood Type A POSITIVE Blood Type Confirm Antibody Screen Negative BBK History Checked No verified bt 02/20/18 02/20/18 02/20/18 16:10 17:51 22:53 WBC RBC Hgb Hct MCV MCH MCHC RDW Plt Count MPV Neut % (Auto) Lymph % (Auto) [place] % (Auto) Eos % (Auto) Baso % (Auto) Neut # (Auto) Lymph # (Auto) [place] # (Auto) Eos # (Auto) Baso # (Auto) PT INR APTT Sodium Potassium Chloride Carbon Dioxide Anion Gap BUN Creatinine Est GFR ( Amer) Est GFR (Non-Af Amer) POC Glucose (mg/dL) 139 H Random Glucose Calcium Total Bilirubin Direct Bilirubin AST ALT Alkaline Phosphatase Total Protein Albumin Globulin Albumin/Globulin Ratio Urine Color Yellow Urine Clarity Cloudy Urine pH 7.0 Ur Specific [place] 1.013 Urine Protein 30 Urine Glucose (UA) Neg Urine Ketones Negative Urine Blood Large Urine Nitrate Negative Urine Bilirubin Negative Urine Urobilinogen 0.2-1.0 Ur Leukocyte Esterase Neg Urine RBC (Auto) 25 H Urine Microscopic WBC 4 Ur Squamous Epith Cells 7 H Amorphous Sediment Occ H Urine Bacteria Rare Blood Type Blood Type Confirm A POSITIVE Antibody Screen BBK History Checked 02/21/18 02/21/18 02/21/18 05:35 05:35 06:12 WBC 9.2 RBC 4.25 Hgb 12.5 Hct 38.3 MCV 90.2 MCH 29.5 MCHC 32.7 L RDW 13.5 Plt Count 240 MPV 7.8 Neut % (Auto) 62.1 Lymph % (Auto) 21.7 [place] % (Auto) 12.2 H Eos % (Auto) 3.4 Baso % (Auto) 0.6 Neut # (Auto) 5.7 Lymph # (Auto) 2.0 [place] # (Auto) 1.1 H Eos # (Auto) 0.3 Baso # (Auto) 0.1 PT INR APTT Sodium 136 Potassium 3.4 L Chloride 97 L Carbon Dioxide 28 Anion Gap 14 BUN 21 H Creatinine 0.9 Est GFR ( Amer) > 60 Est GFR (Non-Af Amer) 59 POC Glucose (mg/dL) 127 H Random Glucose 115 H Calcium 9.0 Total Bilirubin Direct Bilirubin AST ALT Alkaline Phosphatase Total Protein Albumin Globulin Albumin/Globulin Ratio Urine Color Urine Clarity Urine pH Ur Specific [place] Urine Protein Urine Glucose (UA) Urine Ketones Urine Blood Urine Nitrate Urine Bilirubin Urine Urobilinogen Ur Leukocyte Esterase Urine RBC (Auto) Urine Microscopic WBC Ur Squamous Epith Cells Amorphous Sediment Urine Bacteria Blood Type Blood Type Confirm Antibody Screen BBK History Checked 02/21/18 02/21/18 10:20 10:20 WBC RBC Hgb Hct MCV MCH MCHC RDW Plt Count MPV Neut % (Auto) Lymph % (Auto) [place] % (Auto) Eos % (Auto) Baso % (Auto) Neut # (Auto) Lymph # (Auto) [place] # (Auto) Eos # (Auto) Baso # (Auto) PT 12.1 INR 1.1 APTT 32.0 Sodium 138 Potassium 4.1 Chloride 98 Carbon Dioxide 30 Anion Gap 14 BUN 19 H Creatinine 1.0 Est GFR ( Amer) > 60 Est GFR (Non-Af Amer) 52 POC Glucose (mg/dL) Random Glucose 115 H Calcium 9.3 Total Bilirubin 0.6 Direct Bilirubin 0.1 AST 23 ALT 23 Alkaline Phosphatase 54 Total Protein 7.1 Albumin 3.8 Globulin 3.3 Albumin/Globulin Ratio 1.2 Urine Color Urine Clarity Urine pH Ur Specific [place] Urine Protein Urine Glucose (UA) Urine Ketones Urine Blood Urine Nitrate Urine Bilirubin Urine Urobilinogen Ur Leukocyte Esterase Urine RBC (Auto) Urine Microscopic WBC Ur Squamous Epith Cells Amorphous Sediment Urine Bacteria Blood Type Blood Type Confirm Antibody Screen BBK History Checked Assessment & Plan (1) Chronic cough Status: Acute (2) Posterior rhinorrhea Status: Acute (3) Seasonal rhinitis Status: Acute - Assessment and Plan (Free Text) Plan: Patient is medically cleared for surgery from a pulmonary perspective. - Date & Time Date: 02/21/18 Time: :
--- NOTE | 2018-02-21 11:26 | CARD ---
APPROVED REPORT Date of service: 02/21/2018 EXAM: Two-dimensional and M-mode echocardiogram with Doppler and color Doppler. Other Information Quality : AverageRhythm : NSR Technically limited study due to Fractured LT Hip INDICATION Pre-Op 2D DIMENSIONS IVSd1.16 (0.7-1.1cm)LVDd3.73 (3.9-5.9cm) LVOT Diameter1.97 (1.8-2.4cm)PWd0.81 (0.7-1.1cm) IVSs1.10 (0.8-1.2cm)LVDs2.64 (2.5-4.0cm) FS (%) 29.3 %PWs1.07 (0.8-1.2cm) M-Mode DIMENSIONS Left Atrium (MM)3.53 (2.5-4.0cm)Aortic Root3.21 (2.2-3.7cm) Aortic Cusp Exc.1.88 (1.5-2.0cm) Aortic Valve AoV Peak Qjqfkpsr503.3cm/sAoV VTI27.6cmAO Peak GR.8mmHg LVOT Peak Bgcbnbnu019.9cm/sLVOT VTI23.30cmAO Mean GR.5mmHg JADE (VMAX)1.95wk8VLD (VTI)1.85cm2 Mitral Valve MV E Bvhtzbte58.3cm/sMV DECEL NOBF145uxRH A Pvduwzyy45.8cm/s MV WZO24xhA/A ratio0.7MVA (PHT)2.98cm2 TDI Lateral E' Peak V6.84cm/sMedial E' Peak V6.44cm/sE/Lateral E'9.5 E/Medial E'10.1 LEFT VENTRICLE The left ventricle is normal size. There is normal left ventricular wall thickness. The left ventricular systolic function is normal. The estimated ejection fraction is 55-60% No regional wall motion abnormalities noted.. Transmitral Doppler flow pattern is Grade I-abnormal relaxation pattern. No left ventricle thrombus noted on this study. There is no ventricular septal defect visualized. There is no left ventricular aneurysm. There is no mass noted in the left ventricle. RIGHT VENTRICLE The right ventricle is normal size. There is normal right ventricular wall thickness. The right ventricular systolic function is normal. ATRIA The left atrium size is normal. The right atrium size is normal. The interatrial septum is intact with no evidence for an atrial septal defect. AORTIC VALVE The aortic valve is normal in structure. No aortic regurgitation is present. There is no aortic valvular stenosis. There is no aortic valvular vegetation. MITRAL VALVE The mitral valve is normal in structure. There is no evidence of mitral valve prolapse. There is no mitral valve stenosis. There is no mitral valve regurgitation noted. TRICUSPID VALVE The tricuspid valve is normal in structure. There is no significant tricuspid valve regurgitation noted. There is no tricuspid valve prolapse or vegetation. There is no tricuspid valve stenosis. PULMONIC VALVE The pulmonary valve is normal in structure. There is no pulmonic valvular regurgitation. There is no pulmonic valvular stenosis. GREAT VESSELS The aortic root is normal in size. The ascending aorta is normal in size. The pulmonary artery is normal. The IVC is normal in size and collapses >50% with inspiration. PERICARDIAL EFFUSION There is no pericardial effusion. There is no pleural effusion. <Conclusion> Technically difficult study The estimated ejection fraction is 55-60% Transmitral Doppler flow pattern is Grade I-abnormal relaxation pattern. The left atrium size is normal. There is no significant tricuspid valve regurgitation noted.
--- NOTE | 2018-02-21 12:01 | CP.PCM.PN ---
Subjective - Date & Time of Evaluation Date of Evaluation: 02/21/18 Time of Evaluation: 06:30 - Subjective Subjective: Patient states she has pain in her left hip. Controlled with medication. Denies CP/SOB/dizziness. Objective - Vital Signs/Intake and Output Vital Signs (last 24 hours): Temp Pulse Resp BP Pulse Ox 97.9 F 74 20 120/70 95 02/21/18 08:36 02/21/18 08:36 02/21/18 08:36 02/21/18 08:36 02/21/18 08:36 Intake and Output: 02/21/18 02/21/18 06:59 18:59 Intake Total 880 Output Total 1300 Balance -420 - Medications Medications: Current Medications Acetaminophen (Tylenol 325mg Tab) 650 mg PO Q4 PRN PRN Reason: Pain, Mild (1-3) Last Admin: 02/21/18 03:24 Dose: 650 mg Allopurinol (Zyloprim) 100 mg PO DAILY [facility] Last Admin: 02/21/18 08:14 Dose: Not Given Cholecalciferol (Vitamin D) 1,000 intlu PO DAILY [facility] Last Admin: 02/21/18 08:14 Dose: Not Given Dextrose (Dextrose 50% Inj) 0 ml IV STAT PRN; Protocol PRN Reason: Hypoglycemia Protocol Dextrose (Glutose 15) 0 gm PO ONCE PRN; Protocol PRN Reason: Hypoglycemia Protocol Docusate Sodium (Colace) 100 mg PO BID [facility] Last Admin: 02/21/18 08:13 Dose: Not Given Glucagon (Glucagen Diagnostic Kit) 0 mg IM STAT PRN; Protocol PRN Reason: Hypoglycemia Protocol Sodium Chloride (Sodium Chloride 0.9%) 1,000 mls @ 80 mls/hr IV .[id number] [facility] Stop: 02/21/18 17:34 Last Admin: 02/21/18 10:59 Dose: 80 mls/hr Potassium Chloride (Potassium Chloride 20 Meq/100 Ml) 100 mls @ 50 mls/hr IVPB ONCE ONE Stop: 02/21/18 12:29 Last Admin: 02/21/18 10:51 Dose: 50 mls/hr Meclizine HCl (Antivert) 12.5 mg PO Q12 PRN PRN Reason: Dizziness Metformin HCl (Glucophage) 500 mg PO DAILY [facility] Pantoprazole Sodium (Protonix Ec Tab) 40 mg PO DAILY [facility] Last Admin: 02/21/18 08:13 Dose: Not Given Triamterene/HCTZ (Dyazide 25 Mg-37.5 Mg) 1 cap PO DAILY [facility] Last Admin: 02/21/18 09:33 Dose: Not Given - Labs Labs: 02/21/18 05:35 02/21/18 10:20 PT 12.1 Seconds (9.8-13.1) 02/21/18 10:20 INR 1.1 02/21/18 10:20 APTT 32.0 Seconds (25.6-37.1) 02/21/18 10:20 - Extremities Exam Additional comments: LLE: in bucks traction. +ROM ankle/toes, sensation intact +DP/PT pulses calves soft NT neg homans Assessment and Plan (1) Left displaced femoral neck fracture Assessment & Plan: Medically optimized, LFTs improved, K now normal Optimized per pulm and cardio NPO for OR today check vitamin D T&C for OR d/w Dr. Dyer, agrees with above Status: Acute
[2018-02-21] MEDS ORDERED: Absorbable Gelatin Sponge Size 12-7 ONE (12:35)
[2018-02-21] MEDS ORDERED: ceFAZolin IV 1 gm in Dextrose 2 GM/100 ML BAG IVPB ONE (12:36)
[2018-02-21] MEDS ORDERED: Bacitracin Ointment 30 GM TUBE ONE (12:55)
[2018-02-21] MEDS ORDERED: Succinylcholine 200 mg/10 ml Inj IV ONE (12:56)
[2018-02-21] MEDS ORDERED: Midazolam 2 MG/2 ML VIAL ONE (12:56)
[2018-02-21] MEDS ORDERED: Lidocaine 1% 5ml Abboject ONE (12:56)
[2018-02-21] MEDS ORDERED: Neostigmine 1:1000 (1 mg/ml) Inj ONE (12:56)
[2018-02-21] MEDS ORDERED: Lidocaine 4% (Laryng-O-Jet) Kit MM ONE (12:56)
[2018-02-21] MEDS ORDERED: Rocuronium 10 mg/ml (5 ml) ONE ×4 (12:56→17:08)
[2018-02-21] MEDS ORDERED: Etomidate 20 mg/10ml Inj IV ONE (13:00)
[2018-02-21] MEDS ORDERED: Tranexamic Acid 1,000 MG in Sodium Chloride 0.9% 100 ML IVPB ONE ×2 (13:30→15:00)
[2018-02-21] MEDS ORDERED: EPINEPHrine 1 mg/ml (1:1000) Inj ONE ×2 (13:37→16:11)
--- NOTE | 2018-02-21 13:38 | CARD ---
APPROVED REPORT Date of service: 02/20/2018 EKG Measurement Heart [id number] <Conclusion> Normal sinus rhythm Normal ECG
[2018-02-21] MEDS ORDERED: Sodium Chloride 0.9% 10 ML IV ONE (14:00)
[2018-02-21] MEDS ORDERED: Phenylephrine 10 mg/ml Inj ONE (14:00)
[2018-02-21] MEDS ORDERED: ePHEDrine 50 mg/ml Inj ONE (14:00)
[2018-02-21] MEDS ORDERED: Morphine 1 mg/ml preservative-free Inj(Duramorph) ONE (14:01)
[2018-02-21] MEDS ORDERED: Lactated Ringer's 1,000 ML IV ONE ×3 (14:10→18:50)
--- NOTE | 2018-02-21 16:29 | PQF ---
PROVIDER RESPONSE TEXT: DM type II REVIEWER QUERY TEXT: Diabetes Type DM Type 1 and DM Type 2 are documented in the Medical Record. Please specify which type: Such as: -- Type I diabetes mellitus -- Type II diabetes mellitus -- Diabetes due to drug or chemicals -- Diabetes due to an underlying medical condition -- Other, please specify Random glucose: 250->222->246->226->257->188->219 POC: 02/14: 235 to 274 range ,on 02/15: 182 to 308 range, on 02/19 max 314, and 02/20 max 378 H and P: Diabetes - Hold metformin for now - Accuchecks ACHS - Insulin coverage scale and hypoglycemia protocol Cardiology consult: Hx Diabetes Mellitus Type 1: Yes Ortho consult: Hx Diabetes Mellitus Type :2 Yes The patient's Clinical Indicators include: - Query created by: Ailyn Emerson on 02/21/2018 11:33 AM Electronically signed by: Hetal Esqueda MD 02/21/2018 4:26 PM
--- NOTE | 2018-02-21 16:29 | PQF ---
PROVIDER RESPONSE TEXT: Hypokalemia - IV KCL given REVIEWER QUERY TEXT: Medication Correlation for Diagnosis Your help is needed in capturing diagnoses for the corresponding medications ordered. Please clarify in the documentation diagnoses for the following medication: Potassium Chloride IVPB once Serum Potassium: 5.8->3.4->4.1 02/21 Cardiology consult: I SPOKE TO THE HOSPITALIST AND WE WILL REPEAT LFT(AFTER HYDRATION), DO AN IN R AND GIVE HER A SMALL DOSE OF KCL AND THEN REEVALUATE The patient's Clinical Indicators include: - Query created by: Ailyn Emerson on 02/21/2018 11:41 AM Electronically signed by: Hetal Esqueda MD 02/21/2018 4:26 PM
[2018-02-21] MEDS ORDERED: Sodium Chloride 0.9% 1,000 ML IV ONE (17:01)
[2018-02-21] MEDS ORDERED: HEMOSTATIC MATRIX 10 ML DIS.NEEDLE TOP ONE (17:19)
--- NOTE | 2018-02-21 18:04 | PCM.SURG1 ---
Surgeon's Initial Post Op Note - Surgeon's Notes Surgeon: Gomez Machines Technician: ESTEBAN Aguirre Type of Anesthesia: General Endo Anesthesia Administered By: DR Dietz Pre-Operative Diagnosis: 1) Gardens 4 subcapital L femur fx. 2)preexisting O/A L hip Operative Findings: displaced Gardens 4 subcapital L femur fx. primary O/a L hip Post-Operative Diagnosis: as above Operation Performed: L THR- anterior approach. femoral neck osteotomy. release iliopsoas tendon. autopgraFT BONE GRAFT TOacetabulum. computer navigation Specimen/Specimens Removed: bone/cartilage/bone Estimated Blood Loss: EBL {In ML}: 300 Blood Products Given: PRBC Drains Used: No Drains Post-Op Condition: Fair Date of Surgery/Procedure: 02/21/18 Time of Surgery/Procedure: 15:35 (time in room/anaetyshisa indcution time 1410)
[2018-02-21 19:40] LABS: HEMOGLOBIN 13.7 g/dL (12.0-16.0); MEAN CELL VOLUME 91.4 fl (81.0-99.0); MEAN CORPUSCULAR HEMOGLOBIN 30.2 pg (27.0-31.0); MEAN CORPUSCULAR HGB CONC 33.1 g/dL (33.0-37.0); RBC 4.54 Mil/uL (3.80-5.20); RED CELL DISTRIBUTION WIDTH 13.8 % (11.5-14.5); WHITE BLOOD COUNT 11.9 K/uL (4.8-10.8)
[2018-02-21] MEDS: Lactated Ringer's 1,000 ML IV SCH (20:51)
[2018-02-21] MEDS: ceFAZolin 1 GM in Sodium Chloride 0.9% 100 ML IVPB SCH (22:00)
--- NOTE | 2018-02-22 01:18 | CP.PCM.CON ---
History of Present Illness - History of Present Illness History of Present Illness: PMD: Dr Randle Reason for consult: Critical care Management Chief Complaint: s/p Left total Hip replacement The patient was seen and examined in PACU post surgery HPI: The hx is obtained from the Anesthesist and after review of the radiological and medical records. The patient is 87years old with hx of HTN and DM II and was admitted on 02/20/18 post fall with dx of Left hip fracture. She underwent Left Total hip replacement on 02/21/18 , the Orthopedist was Dr Dyer. There was a 300mls blood loss, The patient apparently had no complication and was extubated post operation. She was hypothermic post Op but this was resolved with a Bear Hugger. The Patient is transferred to [facility] brinuse of Age related post OP concerns with cardiac and Blood Pressure Monitoring. PMH: HTN; DM II; HLD PSH: Hysterectomy; Bladder Prolapse surgery; Appendectomy SH: No illegal drug use; Former Smoker; No Alcohol; Live with family FH: State: No known family hx Allergies: NKDA Medication: Reviewed Review of Systems - Review of Systems Review of Systems: Review of systems is limited because the patient is still sleepy being Post Operation. Past Patient History - Past Medical History & Family History Past Medical History?: Yes - Past Social History Smoking Status: Former Smoker Chewing Tobacco Use: No Cigar Use: No Alcohol: None Drugs: Denies Home Situation {Lives}: With Family - CARDIAC Hx Cardiac Disorders: Yes Hx Hypercholesterolemia: Yes - PULMONARY Hx Respiratory Disorders: No Other/Comment: occasional cough - NEUROLOGICAL Hx Neurological Disorder: Yes Hx Dizziness: Yes - HEENT Hx HEENT Problems: No - RENAL Hx Chronic Kidney Disease: No Other/Comment: bladder prolapse - ENDOCRINE/METABOLIC Hx Endocrine Disorders: Yes Hx Diabetes Mellitus Type 1: Yes - HEMATOLOGICAL/ONCOLOGICAL Hx Blood Disorders: No Hx AIDS: No Hx Human Immunodeficiency Virus (HIV): No - INTEGUMENTARY Hx Dermatological Problems: No - MUSCULOSKELETAL/RHEUMATOLOGICAL Hx Musculoskeletal Disorders: Yes Hx Arthritis: Yes Hx Falls: No - GASTROINTESTINAL Hx Gastrointestinal Disorders: No - GENITOURINARY/GYNECOLOGICAL Hx Genitourinary Disorders: No - PSYCHIATRIC Hx Psychophysiologic Disorder: No Hx Substance Use: No - SURGICAL HISTORY Hx Surgeries: Yes Hx Appendectomy: Yes Hx Hysterectomy: Yes Hx Tonsillectomy: Yes Other/Comment: bladder prolapse correction - ANESTHESIA Hx Anesthesia: Yes Hx Anesthesia Reactions: No Hx Malignant Hyperthermia: No Meds Allergies/Adverse Reactions: Allergies Allergy/AdvReac Type Severity Reaction Status Date / Time No Known Allergies Allergy Verified 02/20/18 13:26 - Medications Medications: Current Medications Acetaminophen (Tylenol 325mg Tab) 650 mg PO Q6 [facility] Last Admin: 02/21/18 17:00 Dose: Not Given Allopurinol (Zyloprim) 100 mg PO DAILY [facility] Last Admin: 02/21/18 08:14 Dose: Not Given Cholecalciferol (Vitamin D) 1,000 intlu PO DAILY [facility] Last Admin: 02/21/18 08:14 Dose: Not Given Dextrose (Dextrose 50% Inj) 0 ml IV STAT PRN; Protocol PRN Reason: Hypoglycemia Protocol Dextrose (Glutose 15) 0 gm PO ONCE PRN; Protocol PRN Reason: Hypoglycemia Protocol Docusate Sodium (Colace) 100 mg PO BID [facility] Last Admin: 02/21/18 17:00 Dose: Not Given Enoxaparin Sodium (Lovenox) 30 mg SC Q24H [facility]; Protocol Glucagon (Glucagen Diagnostic Kit) 0 mg IM STAT PRN; Protocol PRN Reason: Hypoglycemia Protocol Cefazolin Sodium 1 gm/ Sodium (Chloride) 100 mls @ 100 mls/hr IVPB Q8H [facility]; Protocol Stop: 02/22/18 06:59 Last Admin: 02/21/18 22:00 Dose: 100 mls/hr Lactated Ringer's (Lactated Ringer's) 1,000 mls @ 100 mls/hr IV .Q10H [facility] Last Admin: 02/21/18 20:51 Dose: 100 mls/hr Meclizine HCl (Antivert) 12.5 mg PO Q12 PRN PRN Reason: Dizziness Metformin HCl (Glucophage) 500 mg PO DAILY [facility] Morphine Sulfate (Morphine) 2 mg IVP Q4 PRN PRN Reason: Pain, severe (8-10) Ondansetron HCl (Zofran Inj) 4 mg IVP Q6 PRN PRN Reason: Nausea/Vomiting Oxycodone HCl (Oxycodone Immediate Release Tab) 5 mg PO Q6 PRN PRN Reason: Pain, moderate (4-7) Pantoprazole Sodium (Protonix Ec Tab) 40 mg PO DAILY [facility] Last Admin: 02/21/18 08:13 Dose: Not Given Triamterene/HCTZ (Dyazide 25 Mg-37.5 Mg) 1 cap PO DAILY [facility] Last Admin: 02/21/18 09:33 Dose: Not Given Physical Exam - Constitutional Appears: No Acute Distress - Head Exam Head Exam: ATRAUMATIC, NORMAL INSPECTION, NORMOCEPHALIC - Eye Exam Eye Exam: EOMI, Normal appearance Pupil Exam: NORMAL ACCOMODATION - ENT Exam ENT Exam: Mucous Membranes Moist, Normal External Ear Exam - Neck Exam Neck exam: Positive for: Full Rom, Normal Inspection. Negative for: Lymphadenopathy, Tenderness - Respiratory Exam Respiratory Exam: Clear to Auscultation Bilateral. absent: Rales, Rhonchi, Wheezes - Cardiovascular Exam Cardiovascular Exam: REGULAR RHYTHM, RRR, +S1, +S2 - GI/Abdominal Exam GI & Abdominal Exam: Normal Bowel Sounds, Soft. absent: Organomegaly, Tenderness - Rectal Exam Rectal Exam: Deferred - Extremities Exam Additional comments: Left hip with no pain but with post operation dressing - Back Exam Back exam: NORMAL INSPECTION. absent: CVA tenderness (L), CVA tenderness (R) - Neurological Exam Neurological exam: CN II-XII Intact, Oriented x3, Reflexes Normal Additional comments: Sleepy - Psychiatric Exam Psychiatric exam: Flat Affect - Skin Skin Exam: Dry, Normal Color, Warm Results - Vital Signs Recent Vital Signs: Last Vital Signs Temp 97.5 F L 02/21/18 20:46 Pulse 95 H 02/21/18 20:46 Resp 13 02/21/18 20:46 BP 130/69 02/21/18 20:46 Pulse Ox 98 02/21/18 20:46 - Labs Result Diagrams: 02/22/18 04:36 02/22/18 04:36 Labs: Laboratory Results - last 24 hr 02/21/18 02/21/18 02/21/18 05:35 05:35 06:12 WBC 9.2 RBC 4.25 Hgb 12.5 Hct 38.3 MCV 90.2 MCH 29.5 MCHC 32.7 L RDW 13.5 Plt Count 240 MPV 7.8 Neut % (Auto) 62.1 Lymph % (Auto) 21.7 [place] % (Auto) 12.2 H Eos % (Auto) 3.4 Baso % (Auto) 0.6 Neut # (Auto) 5.7 Lymph # (Auto) 2.0 [place] # (Auto) 1.1 H Eos # (Auto) 0.3 Baso # (Auto) 0.1 PT INR APTT Sodium 136 Potassium 3.4 L Chloride 97 L Carbon Dioxide 28 Anion Gap 14 BUN 21 H Creatinine 0.9 Est GFR ( Amer) > 60 Est GFR (Non-Af Amer) 59 POC Glucose (mg/dL) 127 H Random Glucose 115 H Calcium 9.0 Total Bilirubin Direct Bilirubin AST ALT Alkaline Phosphatase Total Protein Albumin Globulin Albumin/Globulin Ratio 25-OH Vitamin D Total Blood Type Antibody Screen Crossmatch BBK History Checked 02/21/18 02/21/18 02/21/18 10:20 10:20 11:53 WBC RBC Hgb Hct MCV MCH MCHC RDW Plt Count MPV Neut % (Auto) Lymph % (Auto) [place] % (Auto) Eos % (Auto) Baso % (Auto) Neut # (Auto) Lymph # (Auto) [place] # (Auto) Eos # (Auto) Baso # (Auto) PT 12.1 INR 1.1 APTT 32.0 Sodium 138 Potassium 4.1 Chloride 98 Carbon Dioxide 30 Anion Gap 14 BUN 19 H Creatinine 1.0 Est GFR ( Amer) > 60 Est GFR (Non-Af Amer) 52 POC Glucose (mg/dL) 108 Random Glucose 115 H Calcium 9.3 Total Bilirubin 0.6 Direct Bilirubin 0.1 AST 23 ALT 23 Alkaline Phosphatase 54 Total Protein 7.1 Albumin 3.8 Globulin 3.3 Albumin/Globulin Ratio 1.2 25-OH Vitamin D Total Blood Type Antibody Screen Crossmatch BBK History Checked 02/21/18 02/21/18 02/21/18 12:29 14:15 19:30 WBC 11.9 H RBC 4.54 Hgb 13.7 Hct 41.5 MCV 91.4 MCH 30.2 MCHC 33.1 RDW 13.8 Plt Count 182 MPV Neut % (Auto) Lymph % (Auto) [place] % (Auto) Eos % (Auto) Baso % (Auto) Neut # (Auto) Lymph # (Auto) [place] # (Auto) Eos # (Auto) Baso # (Auto) PT INR APTT Sodium Potassium Chloride Carbon Dioxide Anion Gap BUN Creatinine Est GFR ( Amer) Est GFR (Non-Af Amer) POC Glucose (mg/dL) Random Glucose Calcium Total Bilirubin Direct Bilirubin AST ALT Alkaline Phosphatase Total Protein Albumin Globulin Albumin/Globulin Ratio 25-OH Vitamin D Total 31.2 Blood Type A POSITIVE Antibody Screen Negative Crossmatch See Detail BBK History Checked Patient has bt 02/21/18 19:40 WBC RBC Hgb Hct MCV MCH MCHC RDW Plt Count MPV Neut % (Auto) Lymph % (Auto) [place] % (Auto) Eos % (Auto) Baso % (Auto) Neut # (Auto) Lymph # (Auto) [place] # (Auto) Eos # (Auto) Baso # (Auto) PT INR APTT Sodium Potassium Chloride Carbon Dioxide Anion Gap BUN Creatinine Est GFR ( Amer) Est GFR (Non-Af Amer) POC Glucose (mg/dL) 149 H Random Glucose Calcium Total Bilirubin Direct Bilirubin AST ALT Alkaline Phosphatase Total Protein Albumin Globulin Albumin/Globulin Ratio 25-OH Vitamin D Total Blood Type Antibody Screen Crossmatch BBK History Checked Assessment & Plan - Assessment and Plan (Free Text) Plan: 87years old with hx of HTN and DM II and was admitted on 02/20/18 post fall with dx of Left hip fracture, nderwent Left Total hip replacement on 02/21/18. The Orthopedist was Dr Dyer. There was a 300mls blood loss. There was apparently no complication and she extubated post operation. She was hypothermic post Op but this was resolved with a Bear Hugger. The Patient is transferred to the ICU because of Age related post OP concerns with cardiac arrhythmia and blood pressure monitoring. 1. Left Hip fracture S/p Left Total Hip replacement - Orthopedist Dr Dyer - smash piecer Dr hummel -Continuous cardiac and blood pressure monitoring - Pain management- IV Fluid- PT/OT - Follow CBC/electrolytes and renal labs 2. Diabetes II - Hold metformin for now - Regular Insulin sliding scale according to accucheck 3. Hypercholesterolemia - Continue home statin 4. Gout - Continue home med allopurinol 5. DVT prophylaxis - SCD f - Date & Time Date: 02/22/18 Time: :
[2018-02-22 05:12] LABS: MEAN CELL VOLUME 90.7 fl (81.0-99.0); MEAN CORPUSCULAR HEMOGLOBIN 30.4 pg (27.0-31.0); MEAN CORPUSCULAR HGB CONC 33.5 g/dL (33.0-37.0); RBC 4.27 Mil/uL (3.80-5.20); RED CELL DISTRIBUTION WIDTH 13.8 % (11.5-14.5); WHITE BLOOD COUNT 11.7 K/uL (4.8-10.8)
[2018-02-22 05:24] LABS: ALB/GLOB RATIO 1.1 (1.0-2.1); ALBUMIN 3.2 g/dL (3.5-5.0); ALT/SGPT 18 U/L (9-52); AST/SGOT 36 U/L (14-36); BLOOD UREA NITROGEN 13 mg/dl (7-17); CALCIUM 8.4 mg/dL (8.4-10.2); GFR NON-AFRICAN AMERICAN > 60
[2018-02-22] MEDS: ceFAZolin 1 GM in Sodium Chloride 0.9% 100 ML IVPB SCH (05:50)
[2018-02-22] MEDS: oxyCODONE 5 mg Immediate Release Tab PO PRN ×2 (05:52→21:52)
[2018-02-22] MEDS: Lactated Ringer's 1,000 ML IV SCH (05:52)
[2018-02-22] MEDS: hydroCHLOROthiazide-Triamterene 25 mg-37.5 mg Cap UD PO SCH (08:23)
[2018-02-22] MEDS: Pantoprazole 40 mg EC Tab PO SCH (08:26)
[2018-02-22] MEDS: Cholecalciferol 1,000 INTLU TAB PO SCH (08:27)
--- NOTE | 2018-02-22 10:34 | CP.PCM.PN ---
Subjective - Date & Time of Evaluation Date of Evaluation: 02/22/18 Time of Evaluation: 10:00 - Subjective Subjective: Sitted on chair in good spirits Pain controlled denies CP no SOB no abd pain No fever Son at bedside Objective - Vital Signs/Intake and Output Vital Signs (last 24 hours): Temp Pulse Resp BP Pulse Ox 99.0 F 95 H 20 101/50 L 98 02/22/18 04:16 02/22/18 09:56 02/22/18 06:00 02/22/18 09:56 02/22/18 09:56 Intake and Output: 02/22/18 02/22/18 06:59 18:59 Intake Total 200 Output Total 175 Balance 25 - Medications Medications: Current Medications Acetaminophen (Tylenol 325mg Tab) 650 mg PO Q6 [facility] Last Admin: 02/21/18 17:00 Dose: Not Given Allopurinol (Zyloprim) 100 mg PO DAILY [facility] Last Admin: 02/22/18 08:27 Dose: 100 mg Cholecalciferol (Vitamin D) 1,000 intlu PO DAILY [facility] Last Admin: 02/22/18 08:27 Dose: 1,000 intlu Dextrose (Dextrose 50% Inj) 0 ml IV STAT PRN; Protocol PRN Reason: Hypoglycemia Protocol Dextrose (Glutose 15) 0 gm PO ONCE PRN; Protocol PRN Reason: Hypoglycemia Protocol Docusate Sodium (Colace) 100 mg PO BID [facility] Last Admin: 02/22/18 08:25 Dose: 100 mg Enoxaparin Sodium (Lovenox) 30 mg SC Q24H [facility]; Protocol Glucagon (Glucagen Diagnostic Kit) 0 mg IM STAT PRN; Protocol PRN Reason: Hypoglycemia Protocol Lactated Ringer's (Lactated Ringer's) 1,000 mls @ 100 mls/hr IV .Q10H [facility] Last Admin: 02/22/18 05:52 Dose: 100 mls/hr Meclizine HCl (Antivert) 12.5 mg PO Q12 PRN PRN Reason: Dizziness Metformin HCl (Glucophage) 500 mg PO DAILY [facility] Morphine Sulfate (Morphine) 2 mg IVP Q4 PRN PRN Reason: Pain, severe (8-10) Ondansetron HCl (Zofran Inj) 4 mg IVP Q6 PRN PRN Reason: Nausea/Vomiting Oxycodone HCl (Oxycodone Immediate Release Tab) 5 mg PO Q6 PRN PRN Reason: Pain, moderate (4-7) Last Admin: 02/22/18 05:52 Dose: 5 mg Pantoprazole Sodium (Protonix Ec Tab) 40 mg PO DAILY [facility] Last Admin: 02/22/18 08:26 Dose: 40 mg Triamterene/HCTZ (Dyazide 25 Mg-37.5 Mg) 1 cap PO DAILY [facility] Last Admin: 02/22/18 08:23 Dose: Not Given - Labs Labs: 02/22/18 04:36 02/22/18 04:36 PT 12.1 Seconds (9.8-13.1) 02/21/18 10:20 INR 1.1 02/21/18 10:20 APTT 32.0 Seconds (25.6-37.1) 02/21/18 10:20 - Constitutional Appears: Non-toxic - Head Exam Head Exam: NORMAL INSPECTION, NORMOCEPHALIC - Eye Exam Eye Exam: EOMI, Normal appearance Pupil Exam: NORMAL ACCOMODATION - ENT Exam ENT Exam: Mucous Membranes Moist, Normal External Ear Exam - Neck Exam Neck Exam: Full ROM. absent: Meningismus - Respiratory Exam Respiratory Exam: NORMAL BREATHING PATTERN. absent: Respiratory Distress - Cardiovascular Exam Cardiovascular Exam: REGULAR RHYTHM, +S1, +S2 - GI/Abdominal Exam GI & Abdominal Exam: Soft, Normal Bowel Sounds. absent: Tenderness - Extremities Exam Extremities Exam: Normal Capillary Refill. absent: Calf Tenderness Additional comments: left hip with dressing - Back Exam Back Exam: Full ROM. absent: CVA tenderness (L), CVA tenderness (R) - Neurological Exam Neurological Exam: Alert, Awake, Oriented x3 Neuro motor strength exam: Left Upper Extremity: 5, Right Upper Extremity: 5, Left Lower Extremity: 5, Right Lower Extremity: 5 - Psychiatric Exam Psychiatric exam: Normal Affect, Normal Mood - Skin Skin Exam: Dry, Normal Color, Warm Assessment and Plan - Assessment and Plan (Free Text) Assessment: 87 yo F with history of DM type II, hypercholesterolemia, gout, slipped and fell , and sustained left hip fracture. 1. Acute left hip fracture s/p Left THR - Left THR anterior approach on 02/[address] Dyer -Henny mgt - PT/OT consulted -DVT proph 2. Diabetes type II - Hold metformin for now - Accuchecks ACHS - Insulin coverage scale and hypoglycemia protocol 3. Gout - Continue home med allopurinol 4. HTN hold Triamterene/HCTZ for now as BP low normal 5. DVT prophylaxis Lovenox
--- NOTE | 2018-02-22 11:18 | CP.PCM.PN ---
Subjective - Date & Time of Evaluation Date of Evaluation: 02/22/18 Time of Evaluation: 11:15 - Subjective Subjective: Overnight in ICU for post-anesthesia recovery. Operative note reviewed. Vital signs have been stable. Given one unit PRBCs intraoperatively. WBC this AM 11.7, Hgb 13.0, chemistries stable. Seated on ortho bedside chair, awake, alert, c/o pain at op site. Estevez catheter still in place, urine is clear/yellow. Pharynx is pink, membranes are dry. Neck is supple, trachea is midline. No dullness on chest percussion, good expansion. Breath sounds well heard bilaterally w/o wheezes or rales. Heart sounds well heard, regular. Instructed on use of incentive spirometry, able to achieve 1.5L. SpO2 on room air 97%, does not require supplemental O2. May discharge from ICU, remove estevez. Would prefer one more day on medical floor before D/C to rehab (only 12 hrs post-op). Objective - Vital Signs/Intake and Output Vital Signs (last 24 hours): Temp Pulse Resp BP Pulse Ox 99.0 F 95 H 20 101/50 L 98 02/22/18 04:16 02/22/18 09:56 02/22/18 06:00 02/22/18 09:56 02/22/18 09:56 Intake and Output: 02/21/18 02/22/18 23:59 11:59 Intake Total 3475 Output Total 375 Balance 3100 - Medications Medications: Current Medications Acetaminophen (Tylenol 325mg Tab) 650 mg PO Q6 [facility] Last Admin: 02/21/18 17:00 Dose: Not Given Allopurinol (Zyloprim) 100 mg PO DAILY [facility] Last Admin: 02/22/18 08:27 Dose: 100 mg Cholecalciferol (Vitamin D) 1,000 intlu PO DAILY [facility] Last Admin: 02/22/18 08:27 Dose: 1,000 intlu Dextrose (Dextrose 50% Inj) 0 ml IV STAT PRN; Protocol PRN Reason: Hypoglycemia Protocol Dextrose (Glutose 15) 0 gm PO ONCE PRN; Protocol PRN Reason: Hypoglycemia Protocol Docusate Sodium (Colace) 100 mg PO BID [facility] Last Admin: 02/22/18 08:25 Dose: 100 mg Enoxaparin Sodium (Lovenox) 30 mg SC Q24H [facility]; Protocol Glucagon (Glucagen Diagnostic Kit) 0 mg IM STAT PRN; Protocol PRN Reason: Hypoglycemia Protocol Lactated Ringer's (Lactated Ringer's) 1,000 mls @ 100 mls/hr IV .Q10H [facility] Last Admin: 02/22/18 05:52 Dose: 100 mls/hr Meclizine HCl (Antivert) 12.5 mg PO Q12 PRN PRN Reason: Dizziness Metformin HCl (Glucophage) 500 mg PO DAILY [facility] Morphine Sulfate (Morphine) 2 mg IVP Q4 PRN PRN Reason: Pain, severe (8-10) Ondansetron HCl (Zofran Inj) 4 mg IVP Q6 PRN PRN Reason: Nausea/Vomiting Oxycodone HCl (Oxycodone Immediate Release Tab) 5 mg PO Q6 PRN PRN Reason: Pain, moderate (4-7) Last Admin: 02/22/18 05:52 Dose: 5 mg Pantoprazole Sodium (Protonix Ec Tab) 40 mg PO DAILY [facility] Last Admin: 02/22/18 08:26 Dose: 40 mg Triamterene/HCTZ (Dyazide 25 Mg-37.5 Mg) 1 cap PO DAILY [facility] Last Admin: 02/22/18 08:23 Dose: Not Given - Labs Labs: 02/22/18 04:36 02/22/18 04:36 PT 12.1 Seconds (9.8-13.1) 02/21/18 10:20 INR 1.1 02/21/18 10:20 APTT 32.0 Seconds (25.6-37.1) 02/21/18 10:20 Assessment and Plan (1) Chronic cough Status: Acute (2) Posterior rhinorrhea Status: Acute (3) Seasonal rhinitis Status: Acute
--- NOTE | 2018-02-22 12:35 | RAD ---
Date of service: 02/21/2018 HISTORY: s/p L THR COMPARISON: None available. FINDINGS: BONES: Status post left hip arthroplasty. No acute fracture. JOINTS: Normal. No osteoarthritis. SOFT TISSUE: Normal. OTHER FINDINGS: None . IMPRESSION: Status post left hip arthroplasty. No acute fracture.
[2018-02-22] MEDS: Enoxaparin 30 mg Syringe SC SCH (17:44)
[2018-02-22] MEDS: Insulin Regular 100 units/ml SC SCH ×3 (17:45→22:04)
[2018-02-23] MEDS: Insulin Regular 100 units/ml SC SCH ×5 (05:47→23:23)
[2018-02-23 07:32] LABS: HEMOGLOBIN 10.9 g/dL (12.0-16.0); MEAN CELL VOLUME 90.3 fl (81.0-99.0); MEAN CORPUSCULAR HEMOGLOBIN 29.7 pg (27.0-31.0); MEAN CORPUSCULAR HGB CONC 32.9 g/dL (33.0-37.0); RBC 3.66 Mil/uL (3.80-5.20); RED CELL DISTRIBUTION WIDTH 13.9 % (11.5-14.5); WHITE BLOOD COUNT 14.1 K/uL (4.8-10.8)
[2018-02-23] MEDS: Cholecalciferol 1,000 INTLU TAB PO SCH (08:36)
[2018-02-23] MEDS: Pantoprazole 40 mg EC Tab PO SCH (08:36)
--- NOTE | 2018-02-23 10:46 | CP.PCM.PN ---
Subjective - Date & Time of Evaluation Date of Evaluation: 02/23/18 Time of Evaluation: 10:15 - Subjective Subjective: S- pt resting comfortabkle at time of eval/ minimal post op discomfort Objective - Vital Signs/Intake and Output Vital Signs (last 24 hours): Temp Pulse Resp BP Pulse Ox 98.3 F 95 H 19 109/63 94 L 02/23/18 07:53 02/23/18 07:53 02/23/18 07:53 02/23/18 07:53 02/23/18 07:53 - Medications Medications: Current Medications Acetaminophen (Tylenol 325mg Tab) 650 mg PO Q6 [facility] Last Admin: 02/23/18 04:06 Dose: Not Given Allopurinol (Zyloprim) 100 mg PO DAILY [facility] Last Admin: 02/23/18 08:36 Dose: 100 mg Cholecalciferol (Vitamin D) 1,000 intlu PO DAILY [facility] Last Admin: 02/23/18 08:36 Dose: 1,000 intlu Dextrose (Dextrose 50% Inj) 0 ml IV STAT PRN; Protocol PRN Reason: Hypoglycemia Protocol Dextrose (Glutose 15) 0 gm PO ONCE PRN; Protocol PRN Reason: Hypoglycemia Protocol Docusate Sodium (Colace) 100 mg PO BID [facility] Last Admin: 02/23/18 08:34 Dose: 100 mg Enoxaparin Sodium (Lovenox) 30 mg SC Q24H [facility]; Protocol Last Admin: 02/22/18 17:44 Dose: 30 mg Glucagon (Glucagen Diagnostic Kit) 0 mg IM STAT PRN; Protocol PRN Reason: Hypoglycemia Protocol Lactated Ringer's (Lactated Ringer's) 1,000 mls @ 100 mls/hr IV .Q10H [facility] Last Admin: 02/22/18 05:52 Dose: 100 mls/hr Insulin Human Regular (Humulin R) 0 units SC ACCU-CHECK [facility]; Protocol Last Admin: 02/23/18 06:05 Dose: Not Given Meclizine HCl (Antivert) 12.5 mg PO Q12 PRN PRN Reason: Dizziness Metformin HCl (Glucophage) 500 mg PO DAILY [facility] Morphine Sulfate (Morphine) 2 mg IVP Q4 PRN PRN Reason: Pain, severe (8-10) Ondansetron HCl (Zofran Inj) 4 mg IVP Q6 PRN PRN Reason: Nausea/Vomiting Oxycodone HCl (Oxycodone Immediate Release Tab) 5 mg PO Q6 PRN PRN Reason: Pain, moderate (4-7) Last Admin: 02/22/18 21:52 Dose: 5 mg Pantoprazole Sodium (Protonix Ec Tab) 40 mg PO DAILY [facility] Last Admin: 02/23/18 08:36 Dose: 40 mg - Labs Labs: 02/23/18 05:30 02/22/18 04:36 PT 12.1 Seconds (9.8-13.1) 02/21/18 10:20 INR 1.1 02/21/18 10:20 APTT 32.0 Seconds (25.6-37.1) 02/21/18 10:20 - Additional Findings Additional findings: Objective L hip wound benign N/V intact leg lengths equal orthopedically stable Xrays reveal acceptable position of construct Assessment and Plan - Assessment and Plan (Free Text) Assessment: A- s/p L THR P orthopedicallys stable - weigth bearing to tolerance orthopedically stable
--- NOTE | 2018-02-23 11:35 | CP.PCM.PN ---
Subjective - Date & Time of Evaluation Date of Evaluation: 02/23/18 Time of Evaluation: 09:00 - Subjective Subjective: NO CHEST PAIN OR SOB ONLY COMPLAINT IS LEFT HIP SURGICAL SITE PAIN Objective - Vital Signs/Intake and Output Vital Signs (last 24 hours): Temp Pulse Resp BP Pulse Ox 98.3 F 95 H 19 109/63 94 L 02/23/18 07:53 02/23/18 07:53 02/23/18 07:53 02/23/18 07:53 02/23/18 07:53 - Medications Medications: Current Medications Acetaminophen (Tylenol 325mg Tab) 650 mg PO Q6 [facility] Last Admin: 02/23/18 04:06 Dose: Not Given Allopurinol (Zyloprim) 100 mg PO DAILY [facility] Last Admin: 02/23/18 08:36 Dose: 100 mg Bisacodyl (Dulcolax) 10 mg [place] ONCE ONE Stop: 02/23/18 11:29 Cholecalciferol (Vitamin D) 1,000 intlu PO DAILY [facility] Last Admin: 02/23/18 08:36 Dose: 1,000 intlu Dextrose (Dextrose 50% Inj) 0 ml IV STAT PRN; Protocol PRN Reason: Hypoglycemia Protocol Dextrose (Glutose 15) 0 gm PO ONCE PRN; Protocol PRN Reason: Hypoglycemia Protocol Docusate Sodium (Colace) 100 mg PO BID [facility] Last Admin: 02/23/18 08:34 Dose: 100 mg Enoxaparin Sodium (Lovenox) 30 mg SC Q24H [facility]; Protocol Last Admin: 02/22/18 17:44 Dose: 30 mg Glucagon (Glucagen Diagnostic Kit) 0 mg IM STAT PRN; Protocol PRN Reason: Hypoglycemia Protocol Lactated Ringer's (Lactated Ringer's) 1,000 mls @ 100 mls/hr IV .Q10H [facility] Last Admin: 02/22/18 05:52 Dose: 100 mls/hr Insulin Human Regular (Humulin R) 0 units SC ACCU-CHECK [facility]; Protocol Last Admin: 02/23/18 06:05 Dose: Not Given Meclizine HCl (Antivert) 12.5 mg PO Q12 PRN PRN Reason: Dizziness Metformin HCl (Glucophage) 500 mg PO DAILY [facility] Morphine Sulfate (Morphine) 2 mg IVP Q4 PRN PRN Reason: Pain, severe (8-10) Ondansetron HCl (Zofran Inj) 4 mg IVP Q6 PRN PRN Reason: Nausea/Vomiting Oxycodone HCl (Oxycodone Immediate Release Tab) 5 mg PO Q6 PRN PRN Reason: Pain, moderate (4-7) Last Admin: 02/22/18 21:52 Dose: 5 mg Pantoprazole Sodium (Protonix Ec Tab) 40 mg PO DAILY [facility] Last Admin: 02/23/18 08:36 Dose: 40 mg - Labs Labs: 02/23/18 05:30 02/22/18 04:36 PT 12.1 Seconds (9.8-13.1) 02/21/18 10:20 INR 1.1 02/21/18 10:20 APTT 32.0 Seconds (25.6-37.1) 02/21/18 10:20 - Respiratory Exam Respiratory Exam: Clear to Ausculation Bilateral - Cardiovascular Exam Cardiovascular Exam: REGULAR RHYTHM, +S1, +S2 - Extremities Exam Additional comments: NO LE EDEMA Assessment and Plan - Assessment and Plan (Free Text) Assessment: S/P LEFT HIP FRACTURE WITH LEFT THR HYPERTENSION HISTORY TYPE 2 DM Plan: CONTINUE PRESENT TREATMENT FOR REHAB
[2018-02-23] MEDS: oxyCODONE 5 mg Immediate Release Tab PO PRN (13:42)
--- NOTE | 2018-02-23 18:16 | OP ---
PROCEDURE DATE: 02/21/2018 PREOPERATIVE DIAGNOSES: 1. Garden 4 subcapital left femur fracture of left hip. 2. Preexisting primary osteoarthritis of left hip. OPERATIVE FINDINGS: 1. Displaced Garden 4 subcapital left femur fracture. 2. Primary osteoarthritis of left hip. 3. Synovitis of the left hip joint. POSTOPERATIVE DIAGNOSES: As above. 1. Garden 4 subcapital left femur fracture left hip. 2. Preexisting primary osteoarthritis of the left hip. SURGEON: Stevo Dyer MD. SENIOR COMMISSARY AGENT: Debra Win, certified registered nursing assistant county engineer. ANESTHESIA: General endotracheal anesthesia. ANESTHESIA ADMINISTERED BY: Raymundo Dietz MD OPERATION PERFORMED: 1. Left anterior approach total hip replacement arthroplasty. 2. Femoral neck osteotomy. 3. Release of iliopsoas tendon. 4. Autograft bone graft to the acetabulum. 5. Computer navigation. SPECIMENS REMOVED Bone cartilage and bone and synovium. ESTIMATED BLOOD LOSS: 300 mL. BLOOD PRODUCTS: Given 1 unit of packed red blood cells. DRAINS: No drains. POSTOPERATIVE CONDITION: Stable. INCISION TIME AND TIME OF THE PROCEDURE: 1535. TIME ENTERING THE ROOM AND ANESTHESIA INDUCTION TIME: 1410. OPERATIVE INDICATIONS: Garth Ramos is an 87-year-old woman who had sustained a fall sustaining a displaced fracture of the left femur. The patient presented through the emergency room where the patient was attended as an emergency in the emergency room, 02/20/2018 by the orthopedic team on my service. The patient is admitted, medical stabilization was accomplished. Pros, cons, risks and benefits of various treatment options were discussed. Because of the patient's bone quality and the fact that she is a very young 87 and was very active, the concept of replacement arthroplasty was introduced to solve both problems of the patient. Pros, cons, risks and benefits of hip replacement arthroplasty were discussed. The possibility of mechanical failure, infection, thromboembolic disease, secondary or tertiary surgery was discussed. The patient can no longer withstand the discomfort and wished the surgery to be accomplished. OPERATIVE PROCEDURE: After the satisfactory induction of the anesthetic by Dr. Dietz and after having identified the side, site and procedure and a critical pause/time-out, after the satisfactory induction of the anesthetic, the patient identified as Garth Ramos in the supine position with all bony prominences well padded. The left lower extremity was placed in the [facility] traction positioner. Under the surgeon's direction, the fluoroscope was positioned, video images were generated, therapeutic decisions were made therefrom. The concept of computer navigation was discussed. After sterilely prepping and draping, after identifying the side, site and procedure, an incision was described one fingerbreadth distal to the ASIS and four fingerbreadths distal to that 4 inches in extent. The incision was described three fingerbreadths posterior to the ASIS superficial to the tensor fascia femoris muscle. The Hernandez-Amezquita interval was identified and the tensor fascia femoris muscle was identified, 4 inches incision was described, the skin incision was carried down through the skin and subcutaneous tissue. Dissection was carried down to the fascia of the tensor fascia javon muscle and the fascia was carefully divided taking great care to not disturb the underlying musculature. The anterior fascia was grasped with an Allis clamp and the plane was developed and the modified Medacta Weitlaner retractor was placed. The posterior aspect of the tensor fascia femoris muscle was identified and hemostasis controlled with the Aquamantys. This having been accomplished, a Medacta retractor was placed deeper superficial to the fascia overlying the hip. At this point in time taking great care, the fascia was divided cell layer by cell layer and the anterior branch of the lateral femoral circumflex vessels were identified. These were grasped using a tonsil clamp, the vessels were divided and hemostasis controlled with the suture ligature. This having been accomplished, the suture ligatures were placed anterior and posteriorly. At this point in time, the fat pad superiorly was identified overlying the rectus femoris tendon. The lower extremity was placed in one quarter internal rotation traction. The Cobra retractor was placed and at this point in time, an incision was described at the margin of the acetabulum. This was brought back lateral to medially. Hemostasis was controlled with the Aquamantys. The hip was brought back to neutral in the [facility] traction positioner. Capsulotomy was accomplished to the area of the intertrochanteric line. The fracture site was identified and the capsular flap was elevated intact. This having been accomplished, the superior portion was released off the capsule and hemostasis was controlled with the Aquamantys. This having been accomplished, the displaced subcapital fracture was identified. Two more turns of traction were placed and the fracture was reduced. The femoral neck osteotomy was planned as a separate procedure to ensure leg length equality. This had been accomplished preoperatively and intraoperatively using image intensification views. This having been accomplished, the femoral neck osteotomy having been accomplished, a mapping ring between the femoral neck osteotomy and the fracture was removed and at this point in time, a corkscrew was advanced into the femoral head and neck and the femoral head and neck was removed. This having been accomplished, hemostasis was controlled with the Aquamantys and at this point in time, the modified Charnley retractor was placed. A Kerlix with a 1:1000 soaked epinephrine in 200 mL of saline was introduced into the acetabulum. At this point in time, computer navigation commences after the femoral neck osteotomy had been planned and executed. Two staple pins were placed. The pins were placed to support the accelerometer camera and the pins were placed in the anterior superior iliac spine. This having been accomplished, registration was accomplished of the pelvis in the anterior frontal plane. Registration having been accomplished at this point in time, extensive synovectomy of the hip joint was accomplished. Hemostasis was controlled with the Aquamantys. The pulvinar was removed and the transverse acetabular ligament was identified. This having been accomplished, the wound was thoroughly irrigated. The femoral head was measured and sequential reaming was carried out to 52 mm. This having been accomplished, the reamer was placed at approximately 40 degrees of abduction and 15 to 17 degrees of anteversion. Computer navigation at this point commences. The probe was placed on the reamer handle as the camera was applied. The camera having been applied, the reamer was removed. The reamings were denuded of articular cartilage and at this point in time, reaming was accomplished to a 52-mm reamer in the appropriate size anteversion and abduction. This having been accomplished on the straight filler block inserter remover, the 52-mm Medacta cup was impacted. Autograft bone grafting had been applied to the acetabulum. The shell was impacted and found to be in position at approximately 41 degrees of abduction and 19 degrees of anteversion. Position having found to be stable, the pelvic lift test was accomplished and the acetabular shell was found to be intact. Attention was turned to the femur. With external rotation of the femur, the pubofemoral ligament was identified and a portion of the iliopsoas tendon was released. This having been accomplished, hemostasis was controlled. Dissection was carried down with femoral release to the ischial femoral region as well as the piriformis fossa. This having been accomplished with further external rotation to 170 degrees, the femur was flexed and abducted 10 degrees, retractors were placed. The bridge of bone between the neck and the trochanter was removed using the bur. The box chisel was used to complete this and the canal was found using the rat tooth rasp. This having been accomplished, sequential broaching was carried out to a #3 femoral component. A #3 femoral component was introduced with the 52 mm outer bearing and the 28 mm head. This construct was applied. The hip was reduced and found to be stable in all planes. The leg lengths were found to be equal. At this point in time, the hip was dislocated. Autograft bone grafting had been accomplished to the acetabulum, iliopsoas tendon was released. The proximal femur was again exposed and the #3 femoral stem was introduced, 28 mm head ceramic and the 52 mm plastic outer bearing. The hip was reduced and found to be stable in all planes. The wound was found to be thoroughly irrigated. At this point in time, FloSeal was introduced after hemostasis had been controlled with the Aquamantys. One unit of blood was given intraoperatively because of the patient's dehydration on admission and this having been accomplished, the fascia on the tensor fascia femoris was closed and the capsule was replaced. The fascia on the tensor fascia femoris was closed with 0 Quill, followed by 0 Quill subcutaneous, sophie for skin and a compression dressing was applied. The pins for computer navigation are removed, that is closed with interrupted Vicryl and Dermabond. Compression dressing was applied. Postoperative x-rays show acceptable position of the construct. Stevo Dyer MD
--- NOTE | 2018-02-23 18:34 | CP.PCM.PN ---
Subjective - Date & Time of Evaluation Date of Evaluation: 02/23/18 Time of Evaluation: 11:00 - Subjective Subjective: Pt is afebrile her pain is controlled no CP no SOB complains of constipation Objective - Vital Signs/Intake and Output Vital Signs (last 24 hours): Temp Pulse Resp BP Pulse Ox 98.6 F 101 H 18 129/65 92 L 02/23/18 17:16 02/23/18 17:16 02/23/18 17:16 02/23/18 17:16 02/23/18 17:16 - Medications Medications: Current Medications Acetaminophen (Tylenol 325mg Tab) 650 mg PO Q6 [facility] Last Admin: 02/23/18 16:29 Dose: Not Given Allopurinol (Zyloprim) 100 mg PO DAILY [facility] Last Admin: 02/23/18 08:36 Dose: 100 mg Cholecalciferol (Vitamin D) 1,000 intlu PO DAILY [facility] Last Admin: 02/23/18 08:36 Dose: 1,000 intlu Dextrose (Dextrose 50% Inj) 0 ml IV STAT PRN; Protocol PRN Reason: Hypoglycemia Protocol Dextrose (Glutose 15) 0 gm PO ONCE PRN; Protocol PRN Reason: Hypoglycemia Protocol Docusate Sodium (Colace) 100 mg PO BID [facility] Last Admin: 02/23/18 08:34 Dose: 100 mg Enoxaparin Sodium (Lovenox) 30 mg SC Q24H [facility]; Protocol Last Admin: 02/22/18 17:44 Dose: 30 mg Glucagon (Glucagen Diagnostic Kit) 0 mg IM STAT PRN; Protocol PRN Reason: Hypoglycemia Protocol Lactated Ringer's (Lactated Ringer's) 1,000 mls @ 100 mls/hr IV .Q10H [facility] Last Admin: 02/22/18 05:52 Dose: 100 mls/hr Insulin Human Regular (Humulin R) 0 units SC ACCU-CHECK [facility]; Protocol Last Admin: 02/23/18 13:42 Dose: 3 units Meclizine HCl (Antivert) 12.5 mg PO Q12 PRN PRN Reason: Dizziness Metformin HCl (Glucophage) 500 mg PO DAILY [facility] Morphine Sulfate (Morphine) 2 mg IVP Q4 PRN PRN Reason: Pain, severe (8-10) Ondansetron HCl (Zofran Inj) 4 mg IVP Q6 PRN PRN Reason: Nausea/Vomiting Oxycodone HCl (Oxycodone Immediate Release Tab) 5 mg PO Q6 PRN PRN Reason: Pain, moderate (4-7) Last Admin: 02/23/18 13:42 Dose: 5 mg Pantoprazole Sodium (Protonix Ec Tab) 40 mg PO DAILY [facility] Last Admin: 02/23/18 08:36 Dose: 40 mg - Labs Labs: 02/23/18 05:30 02/22/18 04:36 PT 12.1 Seconds (9.8-13.1) 02/21/18 10:20 INR 1.1 02/21/18 10:20 APTT 32.0 Seconds (25.6-37.1) 02/21/18 10:20 - Constitutional Appears: Non-toxic - Head Exam Head Exam: NORMAL INSPECTION, NORMOCEPHALIC - Eye Exam Eye Exam: EOMI, Normal appearance Pupil Exam: NORMAL ACCOMODATION - ENT Exam ENT Exam: Mucous Membranes Moist, Normal External Ear Exam - Neck Exam Neck Exam: Full ROM. absent: Meningismus - Respiratory Exam Respiratory Exam: NORMAL BREATHING PATTERN. absent: Respiratory Distress - Cardiovascular Exam Cardiovascular Exam: REGULAR RHYTHM, +S1, +S2 - GI/Abdominal Exam GI & Abdominal Exam: Soft, Normal Bowel Sounds. absent: Tenderness - Extremities Exam Extremities Exam: Normal Capillary Refill. absent: Calf Tenderness Additional comments: left hip with dressing - Back Exam Back Exam: Full ROM. absent: CVA tenderness (L), CVA tenderness (R) - Neurological Exam Neurological Exam: Alert, Awake, Oriented x3 Neuro motor strength exam: Left Upper Extremity: 5, Right Upper Extremity: 5, Left Lower Extremity: 5, Right Lower Extremity: 5 - Psychiatric Exam Psychiatric exam: Normal Affect, Normal Mood - Skin Skin Exam: Dry, Normal Color, Warm Assessment and Plan - Assessment and Plan (Free Text) Assessment: 87 yo F with history of DM type II, hypercholesterolemia, gout, slipped and fell , and sustained left hip fracture. Left THR Surgery done 02/21 1. Acute left hip fracture s/p Left THR - Left THR anterior approach done on 02/[address] Dyer -Pain mgt- pain controlled - PT/OT - rec TCU -DVT proph 2. Diabetes type II - restart Metformin - Accuchecks ACHS - Insulin coverage scale and hypoglycemia protocol 3. Gout - Continue home med allopurinol 4. HTN hold Triamterene/HCTZ for now as BP low normal DVT prophylaxis Lovenox
[2018-02-23] MEDS: Enoxaparin 30 mg Syringe SC SCH (18:59)
[2018-02-24 06:45] LABS: HEMOGLOBIN 10.3 g/dL (12.0-16.0); MEAN CELL VOLUME 90.1 fl (81.0-99.0); MEAN CORPUSCULAR HEMOGLOBIN 29.6 pg (27.0-31.0); MEAN CORPUSCULAR HGB CONC 32.9 g/dL (33.0-37.0); RBC 3.49 Mil/uL (3.80-5.20); RED CELL DISTRIBUTION WIDTH 13.5 % (11.5-14.5); WHITE BLOOD COUNT 12.9 K/uL (4.8-10.8)
[2018-02-24] MEDS: Pantoprazole 40 mg EC Tab PO SCH (08:54)
[2018-02-24] MEDS: Cholecalciferol 1,000 INTLU TAB PO SCH (08:54)
[2018-02-24] MEDS: Insulin Regular 100 units/ml SC SCH ×2 (08:56→13:16)
--- NOTE | 2018-02-24 08:57 | CP.PCM.PN ---
Subjective - Date & Time of Evaluation Date of Evaluation: 02/24/18 Time of Evaluation: 08:45 - Subjective Subjective: NO CHEST PAIN OR SOB Objective - Vital Signs/Intake and Output Vital Signs (last 24 hours): Temp Pulse Resp BP Pulse Ox 98.1 F 87 19 100/61 96 02/24/18 08:02 02/24/18 08:02 02/24/18 08:02 02/24/18 08:02 02/24/18 08:02 - Medications Medications: Current Medications Acetaminophen (Tylenol 325mg Tab) 650 mg PO Q6 [facility] Last Admin: 02/24/18 03:48 Dose: Not Given Allopurinol (Zyloprim) 100 mg PO DAILY [facility] Last Admin: 02/23/18 08:36 Dose: 100 mg Cholecalciferol (Vitamin D) 1,000 intlu PO DAILY [facility] Last Admin: 02/23/18 08:36 Dose: 1,000 intlu Dextrose (Dextrose 50% Inj) 0 ml IV STAT PRN; Protocol PRN Reason: Hypoglycemia Protocol Dextrose (Glutose 15) 0 gm PO ONCE PRN; Protocol PRN Reason: Hypoglycemia Protocol Docusate Sodium (Colace) 100 mg PO BID [facility] Last Admin: 02/23/18 18:56 Dose: 100 mg Enoxaparin Sodium (Lovenox) 30 mg SC Q24H [facility]; Protocol Last Admin: 02/23/18 18:59 Dose: 30 mg Glucagon (Glucagen Diagnostic Kit) 0 mg IM STAT PRN; Protocol PRN Reason: Hypoglycemia Protocol Lactated Ringer's (Lactated Ringer's) 1,000 mls @ 100 mls/hr IV .Q10H [facility] Last Admin: 02/22/18 05:52 Dose: 100 mls/hr Insulin Human Regular (Humulin R) 0 units SC ACCU-CHECK [facility]; Protocol Last Admin: 02/23/18 23:23 Dose: Not Given Meclizine HCl (Antivert) 12.5 mg PO Q12 PRN PRN Reason: Dizziness Metformin HCl (Glucophage) 500 mg PO DAILY [facility] Last Admin: 02/23/18 18:57 Dose: 500 mg Morphine Sulfate (Morphine) 2 mg IVP Q4 PRN PRN Reason: Pain, severe (8-10) Ondansetron HCl (Zofran Inj) 4 mg IVP Q6 PRN PRN Reason: Nausea/Vomiting Oxycodone HCl (Oxycodone Immediate Release Tab) 5 mg PO Q6 PRN PRN Reason: Pain, moderate (4-7) Last Admin: 02/23/18 13:42 Dose: 5 mg Pantoprazole Sodium (Protonix Ec Tab) 40 mg PO DAILY [facility] Last Admin: 02/23/18 08:36 Dose: 40 mg - Labs Labs: 02/24/18 05:40 02/22/18 04:36 PT 12.1 Seconds (9.8-13.1) 02/21/18 10:20 INR 1.1 02/21/18 10:20 APTT 32.0 Seconds (25.6-37.1) 02/21/18 10:20 - Respiratory Exam Respiratory Exam: Clear to Ausculation Bilateral - Cardiovascular Exam Cardiovascular Exam: REGULAR RHYTHM, +S1, +S2 - Extremities Exam Additional comments: NO SIGNIFICANT LE EDEMA Assessment and Plan - Assessment and Plan (Free Text) Assessment: FALL WITH LEFT HIP FRACTURE AND LEFT THR Plan: FOR REHAB
[2018-02-24] MEDS: oxyCODONE 5 mg Immediate Release Tab PO PRN (09:18)
--- NOTE | 2018-02-24 11:46 | CP.PCM.PN ---
Subjective - Date & Time of Evaluation Date of Evaluation: 02/24/18 Time of Evaluation: 08:00 - Subjective Subjective: Patient seen and examined at bedside comfortable. Pain is moderate this AM especially with sudden movements, but controlled with oral medications. No other complaints. Denies CP/SOB/fever/LU. Objective - Vital Signs/Intake and Output Vital Signs (last 24 hours): Temp Pulse Resp BP Pulse Ox 98.1 F 82 19 100/61 96 02/24/18 09:00 02/24/18 10:01 02/24/18 09:00 02/24/18 09:00 02/24/18 09:00 - Medications Medications: Current Medications Acetaminophen (Tylenol 325mg Tab) 650 mg PO Q6 [facility] Last Admin: 02/24/18 03:48 Dose: Not Given Allopurinol (Zyloprim) 100 mg PO DAILY [facility] Last Admin: 02/24/18 08:54 Dose: 100 mg Cholecalciferol (Vitamin D) 1,000 intlu PO DAILY [facility] Last Admin: 02/24/18 08:54 Dose: 1,000 intlu Dextrose (Dextrose 50% Inj) 0 ml IV STAT PRN; Protocol PRN Reason: Hypoglycemia Protocol Dextrose (Glutose 15) 0 gm PO ONCE PRN; Protocol PRN Reason: Hypoglycemia Protocol Docusate Sodium (Colace) 100 mg PO BID [facility] Last Admin: 02/24/18 08:55 Dose: 100 mg Enoxaparin Sodium (Lovenox) 30 mg SC Q24H [facility]; Protocol Last Admin: 02/23/18 18:59 Dose: 30 mg Glucagon (Glucagen Diagnostic Kit) 0 mg IM STAT PRN; Protocol PRN Reason: Hypoglycemia Protocol Lactated Ringer's (Lactated Ringer's) 1,000 mls @ 100 mls/hr IV .Q10H [facility] Last Admin: 02/22/18 05:52 Dose: 100 mls/hr Insulin Human Regular (Humulin R) 0 units SC ACCU-CHECK [facility]; Protocol Last Admin: 02/24/18 08:56 Dose: Not Given Meclizine HCl (Antivert) 12.5 mg PO Q12 PRN PRN Reason: Dizziness Metformin HCl (Glucophage) 500 mg PO DAILY [facility] Last Admin: 02/24/18 08:54 Dose: 500 mg Morphine Sulfate (Morphine) 2 mg IVP Q4 PRN PRN Reason: Pain, severe (8-10) Ondansetron HCl (Zofran Inj) 4 mg IVP Q6 PRN PRN Reason: Nausea/Vomiting Oxycodone HCl (Oxycodone Immediate Release Tab) 5 mg PO Q6 PRN PRN Reason: Pain, moderate (4-7) Last Admin: 02/24/18 09:18 Dose: 5 mg Pantoprazole Sodium (Protonix Ec Tab) 40 mg PO DAILY [facility] Last Admin: 02/24/18 08:54 Dose: 40 mg - Labs Labs: 02/24/18 05:40 02/22/18 04:36 PT 12.1 Seconds (9.8-13.1) 02/21/18 10:20 INR 1.1 02/21/18 10:20 APTT 32.0 Seconds (25.6-37.1) 02/21/18 10:20 - Extremities Exam Additional comments: L hip: Mild swelling and tenderness 2nd to surgery aquacel dressing CDI wound/portal site CDI with sophie and sutures sensation intact SP/DP/TN motor intact EHL/FHL/TA/G pedal pulses intact calves soft NT b/l Assessment and Plan (1) Left displaced femoral neck fracture Assessment & Plan: POD #3 s/p L MELISSA anterior approach -Dressings changed -PT/OT WBAT with assistive device -DVT ppx -orthopedically stable for discharge to [facility]/TCU -above d/w Dr. Dyer in agreement Status: Acute
--- NOTE | 2018-02-24 12:21 | CP.PCM.DIS ---
<Jael Chaney - Last Filed: 02/24/18 16:26> Provider - Provider Date of Admission: 02/20/18 15:11 Attending physician: Sandip Buitrago MD Primary care physician: Dr. Randle Consults: Orthopedics- Dr. Dyer Pulmonology- Dr. Jackson Cardiology- Dr. Hammer Time Spent in preparation of Discharge (in minutes): 30 Diagnosis - Discharge Diagnosis (1) Status post total hip replacement, left Status: Acute (2) Left displaced femoral neck fracture Status: Resolved Hospital Course - Lab Results Lab Results: Micro Results 02/22/18 10:45 Naris MRSA Culture (Admit) - Final MRSA NOT DETECTED Most Recent Lab Values WBC 12.9 K/uL (4.8-10.8) H 02/24/18 05:40 RBC 3.49 Mil/uL (3.80-5.20) L 02/24/18 05:40 Hgb 10.3 g/dL (12.0-16.0) L 02/24/18 05:40 Hct 31.4 % (34.0-47.0) L 02/24/18 05:40 MCV 90.1 fl (81.0-99.0) 02/24/18 05:40 MCH 29.6 pg (27.0-31.0) 02/24/18 05:40 MCHC 32.9 g/dL (33.0-37.0) L 02/24/18 05:40 RDW 13.5 % (11.5-14.5) 02/24/18 05:40 Plt Count 157 K/uL (130-400) 02/24/18 05:40 MPV 7.8 fl (7.2-11.7) 02/21/18 05:35 Neut % (Auto) 62.1 % (50.0-75.0) 02/21/18 05:35 Lymph % (Auto) 21.7 % (20.0-40.0) 02/21/18 05:35 [place] % (Auto) 12.2 % (0.0-10.0) H 02/21/18 05:35 Eos % (Auto) 3.4 % (0.0-4.0) 02/21/18 05:35 Baso % (Auto) 0.6 % (0.0-2.0) 02/21/18 05:35 Neut # (Auto) 5.7 K/uL (1.8-7.0) 02/21/18 05:35 Lymph # (Auto) 2.0 K/uL (1.0-4.3) 02/21/18 05:35 [place] # (Auto) 1.1 K/uL (0.0-0.8) H 02/21/18 05:35 Eos # (Auto) 0.3 K/uL (0.0-0.7) 02/21/18 05:35 Baso # (Auto) 0.1 K/uL (0.0-0.2) 02/21/18 05:35 PT 12.1 Seconds (9.8-13.1) 02/21/18 10:20 INR 1.1 02/21/18 10:20 APTT 32.0 Seconds (25.6-37.1) 02/21/18 10:20 Sodium 138 mmol/l (132-148) 02/22/18 04:36 Potassium 4.1 MMOL/L (3.6-5.0) 02/22/18 04:36 Chloride 103 mmol/L (98-107) 02/22/18 04:36 Carbon Dioxide 25 mmol/L (22-30) 02/22/18 04:36 Anion Gap 14 (10-20) 02/22/18 04:36 BUN 13 mg/dl (7-17) 02/22/18 04:36 Creatinine 0.7 mg/dl (0.7-1.2) 02/22/18 04:36 Est GFR ( Amer) > 60 02/22/18 04:36 Est GFR (Non-Af Amer) > 60 02/22/18 04:36 POC Glucose (mg/dL) 191 mg/dL (65-110) H 02/24/18 10:50 Random Glucose 145 mg/dL (65-105) H 02/22/18 04:36 Calcium 8.4 mg/dL (8.4-10.2) 02/22/18 04:36 Total Bilirubin 0.7 mg/dl (0.2-1.3) 02/22/18 04:36 Direct Bilirubin 0.1 mg/ml (0.0-0.4) 02/21/18 10:20 AST 36 U/L (14-36) D 02/22/18 04:36 ALT 18 U/L (9-52) 02/22/18 04:36 Alkaline Phosphatase 44 U/L (38-126) 02/22/18 04:36 Total Protein 6.1 G/DL (6.3-8.2) L 02/22/18 04:36 Albumin 3.2 g/dL (3.5-5.0) L 02/22/18 04:36 Globulin 2.9 gm/dL (2.2-3.9) 02/22/18 04:36 Albumin/Globulin Ratio 1.1 (1.0-2.1) 02/22/18 04:36 25-OH Vitamin D Total 31.2 NG/ML (30.0-100.0) 02/21/18 14:15 Urine Color Yellow (YELLOW) 02/20/18 17:51 Urine Clarity Cloudy (Clear) 02/20/18 17:51 Urine pH 7.0 (5.0-8.0) 02/20/18 17:51 Ur Specific [place] 1.013 (1.003-1.030) 02/20/18 17:51 Urine Protein 30 mg/dL (NEGATIVE) 02/20/18 17:51 Urine Glucose (UA) Neg mg/dL (Normal) 02/20/18 17:51 Urine Ketones Negative mg/dL (NEGATIVE) 02/20/18 17:51 Urine Blood Large (NEGATIVE) 02/20/18 17:51 Urine Nitrate Negative (NEGATIVE) 02/20/18 17:51 Urine Bilirubin Negative (NEGATIVE) 02/20/18 17:51 Urine Urobilinogen 0.2-1.0 mg/dL (0.2-1.0) 02/20/18 17:51 Ur Leukocyte Esterase Neg Sveta/uL (Negative) 02/20/18 17:51 Urine RBC (Auto) 25 /hpf (0-3) H 02/20/18 17:51 Urine Microscopic WBC 4 /hpf (0-5) 02/20/18 17:51 Ur Squamous Epith Cells 7 /hpf (0-5) H 02/20/18 17:51 Amorphous Sediment Occ /ul (<OCC) H 02/20/18 17:51 Urine Bacteria Rare (<OCC) 02/20/18 17:51 Blood Type A POSITIVE 02/21/18 12:29 Blood Type Confirm A POSITIVE 02/20/18 16:10 Antibody Screen Negative 02/21/18 12:29 Crossmatch See Detail 02/21/18 12:29 BBK History Checked Patient has bt 02/21/18 12:29 - Hospital Course Hospital Course: 87 yo F with history of diabetes?, hypercholesterolemia, gout who was admitted to [facility] unit after presenting to ED s/p fall when she slipped down the steps at [employer] and landed on her left hip. Pt was carried by [employer] members to [facility]. In ED, denied head injury, and had no other complaints. Hip imaging showed left subcapital femoral neck fracture. Hip CT showed acute nondisplaced mildly impacted left femoral subcapital fracture. Pt was cleared for surgery by cardiology and pulmonology, and underwent left total knee replacement. She has since done well on the medical floors, and has worked with physical therapy, who have recommended TCU. Today, pt was seen and examined at bedside. She was in no acute distress. She is stable for transfer to TCU for continued PT. Discharge Exam - Head Exam Head Exam: NORMAL INSPECTION, NORMOCEPHALIC - Eye Exam Eye Exam: Normal appearance - ENT Exam ENT Exam: Mucous Membranes Moist - Respiratory Exam Respiratory Exam: Clear to PA & Lateral, NORMAL BREATHING PATTERN. absent: Respiratory Distress - Cardiovascular Exam Cardiovascular Exam: REGULAR RHYTHM, +S1, +S2 - GI/Abdominal Exam GI & Abdominal Exam: Soft, Unremarkable - Extremities Exam Extremities exam: normal capillary refill Additional comments: dressing on L hip pedal pulses present normal capillary refill sensation intact - Neurological Exam Neurological exam: Alert - Psychiatric Exam Psychiatric exam: Normal Affect, Normal Mood - Skin Skin Exam: Dry, Intact, Warm Discharge Plan - Follow Up Plan Condition: STABLE Disposition: REHAB FACILITY/REHAB UNIT Instructions: Hip Fracture (DC), Anterior Hip Replacement (DC) Referrals: Stevo Dyer III, MD [Staff Provider] - Vijay Randle MD [Family Provider] - <Nikia Galeano - Last Filed: 02/24/18 16:59> Provider - Provider Date of Admission: 02/20/18 15:11 Attending physician: Sandip Buitrago MD Hospital Course - Lab Results Lab Results: Micro Results 02/22/18 10:45 [facility] MRSA Culture (Admit) - Final MRSA NOT DETECTED Most Recent Lab Values WBC 12.9 K/uL (4.8-10.8) H 02/24/18 05:40 RBC 3.49 Mil/uL (3.80-5.20) L 02/24/18 05:40 Hgb 10.3 g/dL (12.0-16.0) L 02/24/18 05:40 Hct 31.4 % (34.0-47.0) L 02/24/18 05:40 MCV 90.1 fl (81.0-99.0) 02/24/18 05:40 MCH 29.6 pg (27.0-31.0) 02/24/18 05:40 MCHC 32.9 g/dL (33.0-37.0) L 02/24/18 05:40 RDW 13.5 % (11.5-14.5) 02/24/18 05:40 Plt Count 157 K/uL (130-400) 02/24/18 05:40 MPV 7.8 fl (7.2-11.7) 02/21/18 05:35 Neut % (Auto) 62.1 % (50.0-75.0) 02/21/18 05:35 Lymph % (Auto) 21.7 % (20.0-40.0) 02/21/18 05:35 [place] % (Auto) 12.2 % (0.0-10.0) H 02/21/18 05:35 Eos % (Auto) 3.4 % (0.0-4.0) 02/21/18 05:35 Baso % (Auto) 0.6 % (0.0-2.0) 02/21/18 05:35 Neut # (Auto) 5.7 K/uL (1.8-7.0) 02/21/18 05:35 Lymph # (Auto) 2.0 K/uL (1.0-4.3) 02/21/18 05:35 [place] # (Auto) 1.1 K/uL (0.0-0.8) H 02/21/18 05:35 Eos # (Auto) 0.3 K/uL (0.0-0.7) 02/21/18 05:35 Baso # (Auto) 0.1 K/uL (0.0-0.2) 02/21/18 05:35 PT 12.1 Seconds (9.8-13.1) 02/21/18 10:20 INR 1.1 02/21/18 10:20 APTT 32.0 Seconds (25.6-37.1) 02/21/18 10:20 Sodium 138 mmol/l (132-148) 02/22/18 04:36 Potassium 4.1 MMOL/L (3.6-5.0) 02/22/18 04:36 Chloride 103 mmol/L (98-107) 02/22/18 04:36 Carbon Dioxide 25 mmol/L (22-30) 02/22/18 04:36 Anion Gap 14 (10-20) 02/22/18 04:36 BUN 13 mg/dl (7-17) 02/22/18 04:36 Creatinine 0.7 mg/dl (0.7-1.2) 02/22/18 04:36 Est GFR ( Amer) > 60 02/22/18 04:36 Est GFR (Non-Af Amer) > 60 02/22/18 04:36 POC Glucose (mg/dL) 199 mg/dL (65-110) H 02/24/18 15:36 Random Glucose 145 mg/dL (65-105) H 02/22/18 04:36 Calcium 8.4 mg/dL (8.4-10.2) 02/22/18 04:36 Total Bilirubin 0.7 mg/dl (0.2-1.3) 02/22/18 04:36 Direct Bilirubin 0.1 mg/ml (0.0-0.4) 02/21/18 10:20 AST 36 U/L (14-36) D 02/22/18 04:36 ALT 18 U/L (9-52) 02/22/18 04:36 Alkaline Phosphatase 44 U/L (38-126) 02/22/18 04:36 Total Protein 6.1 G/DL (6.3-8.2) L 02/22/18 04:36 Albumin 3.2 g/dL (3.5-5.0) L 02/22/18 04:36 Globulin 2.9 gm/dL (2.2-3.9) 02/22/18 04:36 Albumin/Globulin Ratio 1.1 (1.0-2.1) 02/22/18 04:36 25-OH Vitamin D Total 31.2 NG/ML (30.0-100.0) 02/21/18 14:15 Urine Color Yellow (YELLOW) 02/20/18 17:51 Urine Clarity Cloudy (Clear) 02/20/18 17:51 Urine pH 7.0 (5.0-8.0) 02/20/18 17:51 Ur Specific [place] 1.013 (1.003-1.030) 02/20/18 17:51 Urine Protein 30 mg/dL (NEGATIVE) 02/20/18 17:51 Urine Glucose (UA) Neg mg/dL (Normal) 02/20/18 17:51 Urine Ketones Negative mg/dL (NEGATIVE) 02/20/18 17:51 Urine Blood Large (NEGATIVE) 02/20/18 17:51 Urine Nitrate Negative (NEGATIVE) 02/20/18 17:51 Urine Bilirubin Negative (NEGATIVE) 02/20/18 17:51 Urine Urobilinogen 0.2-1.0 mg/dL (0.2-1.0) 02/20/18 17:51 Ur Leukocyte Esterase Neg Sveta/uL (Negative) 02/20/18 17:51 Urine RBC (Auto) 25 /hpf (0-3) H 02/20/18 17:51 Urine Microscopic WBC 4 /hpf (0-5) 02/20/18 17:51 Ur Squamous Epith Cells 7 /hpf (0-5) H 02/20/18 17:51 Amorphous Sediment Occ /ul (<OCC) H 02/20/18 17:51 Urine Bacteria Rare (<OCC) 02/20/18 17:51 Blood Type A POSITIVE 02/21/18 12:29 Blood Type Confirm A POSITIVE 02/20/18 16:10 Antibody Screen Negative 02/21/18 12:29 Crossmatch See Detail 02/21/18 12:29 BBK History Checked Patient has bt 02/21/18 12:29 Attending/Attestation - Attestation I have personally seen and examined this patient.: Yes I have fully participated in the care of the patient.: Yes I have reviewed all pertinent clinical information, including history, physical exam and plan: Yes Notes (Text): 02/24/18 16:59 agree with findings and plan as above. stable for discharge to tcu.
[2018-02-24 16:18] VITALS: BP 123/67; PULSE 106; RESP 18; TEMP 99.4; O2SAT 91
--- NOTE | 2018-02-25 13:48 | PQF ---
PROVIDER RESPONSE TEXT: ACUTE BLOOD LOSS ANEMIA DUE TO SURGERY REVIEWER QUERY TEXT: Clarification of Clinical Diagnostic Findings Is there an associated dx. to go along with the H and H's listed in the EMR? Hemoglobin: 14.3->12.5->13.7->13.0->10.9->10.3 Hematocrit:43.2->38.3->38.7->33.0->31.4 OR: Disagree OR: Other explanation of clinical findings 02/21 : Surgical Post Op note: L THR: EBL {In ML}: 300 Blood Products Given: PRBC Op note included; -One unit of blood was given intraoperatively because of the patient's dehydration on admission The patient's Clinical Indicators include: - Query created by: Ailyn Emerson on 02/24/2018 3:15 PM Electronically signed by: Nikia Galeano MD 02/25/2018 1:45 PM
== END 2018-02-24 16:22 | DRG 470 ==
LOC: H.ER 13:21 → H.ERHOLD 15:11 → H.MEDSURG1 18:15 → H.ICU/CCU 02-21 20:34 → H.MEDSURG1 02-22 15:15
PROC: 0SBB0ZZ Excision of Left Hip Joint, Open Approach (ICD-10-PCS; 2018-02-21)
PROC: 8E0YXBF Computer Assisted Procedure of Lower Extremity, With Fluoroscopy (ICD-10-PCS; 2018-02-21)
PROC: 0SRB03A Replacement of Left Hip Joint with Ceramic Synthetic Substitute, Uncemented, Open Approach (ICD-10-PCS; principal; 2018-02-21 15:30)
DX: S72.012A Unspecified intracapsular fracture of left femur, initial encounter for closed fracture (principal); D62 Acute posthemorrhagic anemia; Z79.4 Long term (current) use of insulin; E87.6 Hypokalemia; E11.9 Type 2 diabetes mellitus without complications; Z87.891 Personal history of nicotine dependence; R79.89 Other specified abnormal findings of blood chemistry; J30.2 Other seasonal allergic rhinitis; I10 Essential (primary) hypertension; E78.00 Pure hypercholesterolemia, unspecified; E78.5 Hyperlipidemia, unspecified; M10.9 Gout, unspecified; W10.9XXA Fall (on) (from) unspecified stairs and steps, initial encounter; Y92.22 Religious institution as the place of occurrence of the external cause; K59.00 Constipation, unspecified; M16.12 Unilateral primary osteoarthritis, left hip; M65.9 Synovitis and tenosynovitis, unspecified; E86.0 Dehydration

== ENCOUNTER 2018-02-24 14:29 | Inpatient (IN) | payer OTHER, MEDICARE ==
[2018-02-24 15:06] VITALS: BMI 19.5
[2018-02-24] MEDS ORDERED: oxyCODONE 5 mg Immediate Release Tab PO PRN (16:58)
[2018-02-24] MEDS ORDERED: Enoxaparin 30 mg Syringe SC SCH (18:00)
[2018-02-24] MEDS: oxyCODONE 5 mg Immediate Release Tab PO PRN (21:05)
--- NOTE | 2018-02-25 06:52 | CP.PCM.HP ---
<Jael Chaney - Last Filed: 02/25/18 13:12> History of Present Illness - History of Present Illness History of Present Illness: 87 yo F with history of diabetes, hypercholesterolemia, gout with recent admission to [facility] unit after undergoing left total hip replacement. Pt presented ED s/p fall when [facility] and landed on her left hip; imaging showed acute nondisplaced mildly impacted left femoral subcapital fracture. Pt was cleared for surgery by cardiology and pulmonology, and underwent left total knee replacement on 02/21. She has since done well on the medical floors, and has worked with physical therapy. At this time she is being admitted to TCU for continued PT. Pt seen and examined today; had son at bedside. No acute distress, denies chest pain, trouble breathing, trouble eating or going to the bathroom. Is optimistic about physical therapy. PMD: Dr. Gomez Meds: Metformin, Simvastatin, Allopurinol, Dyazide, Meclezine PRN Past Surg hx: hysterectomy, bladder prolapse surg? Social hx: denies smoking currently (had smoked 30+ yrs ago), alcohol, drugs Family hx: noncontributory Present on Admission - Present on Admission Any Indicators Present on Admission: No Review of Systems - Cardiovascular Cardiovascular: absent: Chest Pain - Respiratory Respiratory: absent: Cough, Dyspnea - Gastrointestinal Gastrointestinal: absent: Abdominal Pain - Genitourinary Genitourinary: absent: Dysuria - Musculoskeletal Additional comments: some pain at surgery site - Neurological Neurological: absent: Numbness, Tingling Past Patient History - Past Medical History & Family History Past Medical History?: Yes - Past Social History Smoking Status: Former Smoker - CARDIAC Hx Hypercholesterolemia: Yes Hx Hypertension: Yes - PULMONARY Hx Respiratory Disorders: No Other/Comment: occasional cough - NEUROLOGICAL Hx Neurological Disorder: Yes Hx Dizziness: Yes - HEENT Hx HEENT Problems: No - RENAL Hx Chronic Kidney Disease: No Other/Comment: bladder prolapse - ENDOCRINE/METABOLIC Hx Endocrine Disorders: Yes Hx Diabetes Mellitus Type 1: Yes - HEMATOLOGICAL/ONCOLOGICAL Hx Blood Disorders: No Hx AIDS: No Hx Human Immunodeficiency Virus (HIV): No - INTEGUMENTARY Hx Dermatological Problems: No - MUSCULOSKELETAL/RHEUMATOLOGICAL Hx Musculoskeletal Disorders: Yes Hx Arthritis: Yes Hx Falls: Yes - GASTROINTESTINAL Hx Gastrointestinal Disorders: No - GENITOURINARY/GYNECOLOGICAL Hx Genitourinary Disorders: No - PSYCHIATRIC Hx Psychophysiologic Disorder: No Hx Substance Use: No - SURGICAL HISTORY Hx Surgeries: Yes Hx Appendectomy: Yes Hx Hysterectomy: Yes Hx Tonsillectomy: Yes Other/Comment: bladder prolapse correction. 02/20 left total hip replacement - ANESTHESIA Hx Anesthesia: Yes Hx Anesthesia Reactions: No Hx Malignant Hyperthermia: No Meds Allergies/Adverse Reactions: Allergies Allergy/AdvReac Type Severity Reaction Status Date / Time No Known Allergies Allergy Verified 02/20/18 13:26 Physical Exam - Constitutional Appears: Well, No Acute Distress - Respiratory Exam Respiratory Exam: Clear to Auscultation Bilateral, NORMAL BREATHING PATTERN. absent: Wheezes - Cardiovascular Exam Cardiovascular Exam: REGULAR RHYTHM, +S1, +S2 - GI/Abdominal Exam GI & Abdominal Exam: Normal Bowel Sounds, Soft. absent: Tenderness - Extremities Exam Extremities exam: Positive for: normal capillary refill, pedal pulses present. Negative for: calf tenderness, pedal edema - Neurological Exam Neurological exam: Alert, Oriented x3 - Psychiatric Exam Psychiatric exam: Normal Affect, Normal Mood - Skin Skin Exam: Dry, Normal Color, Warm Results - Vital Signs Recent Vital Signs: Last Vital Signs Temp 99.1 F 02/24/18 19:49 Pulse 106 H 02/24/18 19:49 Resp 20 02/24/18 19:49 BP 105/53 L 02/24/18 19:49 Pulse Ox 90 L 02/24/18 19:49 - Labs Labs: Laboratory Results - last 24 hr 02/24/18 02/25/18 21:37 05:43 POC Glucose (mg/dL) 190 H 132 H Assessment & Plan - Assessment and Plan (Free Text) Assessment: 87 yo F with history of DM type II, hypercholesterolemia, gout; admitted to TCU, POD 4 after left total knee replacement which was done because pt sustained mechanical fall. Plan: 1. Acute left hip fracture s/p Left THR - POD 4; Left THR anterior approach done on 02/[address] Dyer - Henny mgt- pain controlled - PT/OT - Ortho consult to follow up 2. Diabetes type II - Accuchecks ACHS - Insulin coverage scale and hypoglycemia protocol - Hold metformin 3. Gout - Continue home med allopurinol 4. HTN -Continue to hold Triamterene/HCTZ for now as BP low normal 5.Hyperlipidemia -Continue with home statin 6. DVT prophylaxis -Lovenox <EagelJaylan - Last Filed: 02/25/18 15:34> Results - Vital Signs Recent Vital Signs: Last Vital Signs Temp 97.5 F L 02/25/18 08:18 Pulse 79 02/25/18 08:18 Resp 18 02/25/18 08:18 BP 102/52 L 02/25/18 08:18 Pulse Ox 97 02/25/18 08:18 - Labs Labs: Laboratory Results - last 24 hr 02/24/18 02/25/18 21:37 05:43 POC Glucose (mg/dL) 190 H 132 H Attending/Attestation - Attestation I have personally seen and examined this patient.: Yes I have fully participated in the care of the patient.: Yes I have reviewed all pertinent clinical information: Yes
--- NOTE | 2018-02-25 07:57 | CP.PCM.PN ---
Subjective - Date & Time of Evaluation Date of Evaluation: 02/25/18 Time of Evaluation: 07:30 - Subjective Subjective: Patient seen and examined at bedside comfortable. Pain is slightly improved compared to yesterday, controlled with oral medication. No new complaints. Tolerating PT transfer well. Objective - Vital Signs/Intake and Output Vital Signs (last 24 hours): Temp Pulse Resp BP Pulse Ox 99.1 F 106 H 20 105/53 L 90 L 02/24/18 19:49 02/24/18 19:49 02/24/18 19:49 02/24/18 19:49 02/24/18 19:49 - Medications Medications: Current Medications Acetaminophen (Tylenol 325mg Tab) 650 mg PO Q6 PRN PRN Reason: Pain, Mild (1-3) Allopurinol (Zyloprim) 100 mg PO DAILY [facility] Atorvastatin Calcium (Lipitor) 10 mg PO HS [facility] Last Admin: 02/24/18 21:03 Dose: 10 mg Cholecalciferol (Vitamin D) 1,000 intlu PO DAILY [facility] Docusate Sodium (Colace) 100 mg PO BID [facility] Last Admin: 02/24/18 18:12 Dose: Not Given Enoxaparin Sodium (Lovenox) 30 mg SC DAILY [facility]; Protocol Meclizine HCl (Antivert) 12.5 mg PO Q12 PRN PRN Reason: Dizziness Oxycodone HCl (Oxycodone Immediate Release Tab) 5 mg PO Q6 PRN PRN Reason: Pain, severe (8-10) Last Admin: 02/24/18 21:05 Dose: 5 mg Triamterene/HCTZ (Dyazide 25 Mg-37.5 Mg) 1 cap PO DAILY [facility] - Extremities Exam Additional comments: L hip: Mild swelling and tenderness 2nd to surgery dressings CDI sensation intact SP/DP/TN motor intact EHL/FHL/TA/G pedal pulses intact calves soft NT b/l Assessment and Plan (1) Status post total hip replacement, left Assessment & Plan: POD #4 s/p L MELISSA anterior approach -PT/OT WBAT with assistive device -DVT ppx -orthopedically stable -above d/w Dr. Dyer in agreement Status: Acute
[2018-02-25] MEDS: Enoxaparin 30 mg Syringe SC SCH (08:05)
[2018-02-25] MEDS: Cholecalciferol 1,000 INTLU TAB PO SCH (08:07)
[2018-02-25] MEDS ORDERED: Cholecalciferol 1,000 INTLU TAB PO SCH (09:00)
[2018-02-25] MEDS ORDERED: hydroCHLOROthiazide-Triamterene 25 mg-37.5 mg Cap UD PO SCH (09:00)
[2018-02-25] MEDS: oxyCODONE 5 mg Immediate Release Tab PO PRN (09:12)
--- NOTE | 2018-02-25 20:20 | CP.PCM.CON ---
History of Present Illness - History of Present Illness History of Present Illness: 87 year patient admitted to TCU after a L MELISSA secondary due to a fall, with PMH of DM, HTN,GOUT and hypercholestremia Review of Systems - Musculoskeletal Musculoskeletal: Muscle Weakness Past Patient History - Past Medical History & Family History Past Medical History?: Yes - Past Social History Smoking Status: Former Smoker - CARDIAC Hx Hypercholesterolemia: Yes Hx Hypertension: Yes - PULMONARY Hx Respiratory Disorders: No Other/Comment: occasional cough - NEUROLOGICAL Hx Neurological Disorder: Yes Hx Dizziness: Yes - HEENT Hx HEENT Problems: No - RENAL Hx Chronic Kidney Disease: No Other/Comment: bladder prolapse - ENDOCRINE/METABOLIC Hx Endocrine Disorders: Yes Hx Diabetes Mellitus Type 1: Yes - HEMATOLOGICAL/ONCOLOGICAL Hx Blood Disorders: No Hx AIDS: No Hx Human Immunodeficiency Virus (HIV): No - INTEGUMENTARY Hx Dermatological Problems: No - MUSCULOSKELETAL/RHEUMATOLOGICAL Hx Musculoskeletal Disorders: Yes Hx Arthritis: Yes Hx Falls: Yes - GASTROINTESTINAL Hx Gastrointestinal Disorders: No - GENITOURINARY/GYNECOLOGICAL Hx Genitourinary Disorders: No - PSYCHIATRIC Hx Psychophysiologic Disorder: No Hx Substance Use: No - SURGICAL HISTORY Hx Surgeries: Yes Hx Appendectomy: Yes Hx Hysterectomy: Yes Hx Tonsillectomy: Yes Other/Comment: bladder prolapse correction. 02/20 left total hip replacement - ANESTHESIA Hx Anesthesia: Yes Hx Anesthesia Reactions: No Hx Malignant Hyperthermia: No Meds Allergies/Adverse Reactions: Allergies Allergy/AdvReac Type Severity Reaction Status Date / Time No Known Allergies Allergy Verified 02/20/18 13:26 - Medications Medications: Current Medications Acetaminophen (Tylenol 325mg Tab) 650 mg PO Q6 PRN PRN Reason: Pain, Mild (1-3) Allopurinol (Zyloprim) 100 mg PO DAILY [facility] Last Admin: 02/25/18 08:09 Dose: 100 mg Atorvastatin Calcium (Lipitor) 10 mg PO HS [facility] Last Admin: 02/24/18 21:03 Dose: 10 mg Cholecalciferol (Vitamin D) 1,000 intlu PO DAILY [facility] Last Admin: 02/25/18 08:07 Dose: 1,000 intlu Docusate Sodium (Colace) 100 mg PO BID [facility] Last Admin: 02/25/18 16:15 Dose: 100 mg Enoxaparin Sodium (Lovenox) 30 mg SC DAILY [facility]; Protocol Last Admin: 02/25/18 08:05 Dose: 30 mg Meclizine HCl (Antivert) 12.5 mg PO Q12 PRN PRN Reason: Dizziness Oxycodone HCl (Oxycodone Immediate Release Tab) 5 mg PO Q6 PRN PRN Reason: Pain, severe (8-10) Last Admin: 02/25/18 09:12 Dose: 5 mg Triamterene/HCTZ (Dyazide 25 Mg-37.5 Mg) 1 cap PO DAILY [facility] Last Admin: 02/25/18 08:10 Dose: 1 cap Physical Exam - Constitutional Appears: Well - Head Exam Head Exam: ATRAUMATIC, NORMAL INSPECTION, NORMOCEPHALIC - Eye Exam Eye Exam: EOMI, Normal appearance Pupil Exam: NORMAL ACCOMODATION, PERRL - ENT Exam ENT Exam: Mucous Membranes Moist, Normal Exam - Neck Exam Neck exam: Positive for: Normal Inspection - Respiratory Exam Respiratory Exam: Clear to Auscultation Bilateral, NORMAL BREATHING PATTERN - Cardiovascular Exam Cardiovascular Exam: REGULAR RHYTHM - GI/Abdominal Exam GI & Abdominal Exam: Normal Bowel Sounds - Rectal Exam Rectal Exam: NORMAL INSPECTION - Exam Exam: NORMAL INSPECTION - Extremities Exam Extremities exam: Positive for: normal inspection Additional comments: left leg weakness - Back Exam Back exam: NORMAL INSPECTION - Neurological Exam Neurological exam: Alert - Psychiatric Exam Psychiatric exam: Normal Affect - Skin Skin Exam: Normal Color Results - Vital Signs Recent Vital Signs: Last Vital Signs Temp 97.5 F L 02/25/18 16:59 Pulse 93 H 02/25/18 20:00 Resp 20 02/25/18 20:00 BP 108/48 L 02/25/18 20:00 Pulse Ox 92 L 02/25/18 20:00 - Labs Labs: Laboratory Results - last 24 hr 02/24/18 02/25/18 02/25/18 21:37 05:43 10:40 POC Glucose (mg/dL) 190 H 132 H 170 H 02/25/18 16:09 POC Glucose (mg/dL) 134 H Assessment & Plan (1) Hip fracture, left Status: Acute (2) Status post total hip replacement, left Assessment and Plan: plan for physical, occupational therapy WBAT on the leg status post Left MELISSA now admitted to TCU. modalities, range of motion, transfers, ADL, equipment eval, and monitor pain Status: Acute (3) Left displaced femoral neck fracture Status: Resolved
[2018-02-26] MEDS: Enoxaparin 30 mg Syringe SC SCH (08:06)
[2018-02-26] MEDS: Cholecalciferol 1,000 INTLU TAB PO SCH (08:06)
[2018-02-26] MEDS: oxyCODONE 5 mg Immediate Release Tab PO PRN ×2 (10:57→21:10)
--- NOTE | 2018-02-26 17:29 | CP.PCM.PN ---
Subjective - Date & Time of Evaluation Date of Evaluation: 02/26/18 Time of Evaluation: 15:00 - Subjective Subjective: Patient seen and examined OOB to chair comfortable. Tolerating PT well. Pain well controlled. No new complaints. Objective - Vital Signs/Intake and Output Vital Signs (last 24 hours): Temp Pulse Resp BP Pulse Ox 98.1 F 88 20 148/74 93 L 02/26/18 16:50 02/26/18 16:50 02/26/18 16:50 02/26/18 16:50 02/26/18 16:50 - Medications Medications: Current Medications Acetaminophen (Tylenol 325mg Tab) 650 mg PO Q6 PRN PRN Reason: Pain, Mild (1-3) Last Admin: 02/26/18 05:44 Dose: 650 mg Allopurinol (Zyloprim) 100 mg PO DAILY [facility] Last Admin: 02/26/18 08:07 Dose: 100 mg Atorvastatin Calcium (Lipitor) 10 mg PO HS [facility] Last Admin: 02/25/18 21:08 Dose: 10 mg Cholecalciferol (Vitamin D) 1,000 intlu PO DAILY [facility] Last Admin: 02/26/18 08:06 Dose: 1,000 intlu Docusate Sodium (Colace) 100 mg PO BID [facility] Last Admin: 02/26/18 16:42 Dose: 100 mg Enoxaparin Sodium (Lovenox) 30 mg SC DAILY [facility]; Protocol Last Admin: 02/26/18 08:06 Dose: 30 mg Meclizine HCl (Antivert) 12.5 mg PO Q12 PRN PRN Reason: Dizziness Oxycodone HCl (Oxycodone Immediate Release Tab) 5 mg PO Q6 PRN PRN Reason: Pain, severe (8-10) Last Admin: 02/26/18 10:57 Dose: 5 mg Triamterene/HCTZ (Dyazide 25 Mg-37.5 Mg) 1 cap PO DAILY [facility] Last Admin: 02/25/18 08:10 Dose: 1 cap - Extremities Exam Additional comments: L hip: Mild swelling and tenderness 2nd to surgery dressings CDI sensation intact SP/DP/TN motor intact EHL/FHL/TA/G pedal pulses intact calves soft NT b/l Assessment and Plan (1) Status post total hip replacement, left Assessment & Plan: POD #5 s/p L MELISSA anterior approach -PT/OT WBAT with assistive device -DVT ppx -orthopedically stable -above d/w Dr. Dyer in agreement Status: Acute
--- NOTE | 2018-02-26 18:53 | CP.PCM.PN ---
Subjective - Date & Time of Evaluation Date of Evaluation: 02/26/18 Time of Evaluation: 14:00 - Subjective Subjective: no acute complaints of left hip pain, Objective - Vital Signs/Intake and Output Vital Signs (last 24 hours): Temp Pulse Resp BP Pulse Ox 98.1 F 88 20 148/74 93 L 02/26/18 16:50 02/26/18 16:50 02/26/18 16:50 02/26/18 16:50 02/26/18 16:50 - Medications Medications: Current Medications Acetaminophen (Tylenol 325mg Tab) 650 mg PO Q6 PRN PRN Reason: Pain, Mild (1-3) Last Admin: 02/26/18 05:44 Dose: 650 mg Allopurinol (Zyloprim) 100 mg PO DAILY [facility] Last Admin: 02/26/18 08:07 Dose: 100 mg Atorvastatin Calcium (Lipitor) 10 mg PO HS [facility] Last Admin: 02/25/18 21:08 Dose: 10 mg Cholecalciferol (Vitamin D) 1,000 intlu PO DAILY [facility] Last Admin: 02/26/18 08:06 Dose: 1,000 intlu Docusate Sodium (Colace) 100 mg PO BID [facility] Last Admin: 02/26/18 16:42 Dose: 100 mg Enoxaparin Sodium (Lovenox) 30 mg SC DAILY [facility]; Protocol Last Admin: 02/26/18 08:06 Dose: 30 mg Meclizine HCl (Antivert) 12.5 mg PO Q12 PRN PRN Reason: Dizziness Oxycodone HCl (Oxycodone Immediate Release Tab) 5 mg PO Q6 PRN PRN Reason: Pain, severe (8-10) Last Admin: 02/26/18 10:57 Dose: 5 mg Triamterene/HCTZ (Dyazide 25 Mg-37.5 Mg) 1 cap PO DAILY [facility] Last Admin: 02/25/18 08:10 Dose: 1 cap - Constitutional Appears: Well - Head Exam Head Exam: ATRAUMATIC, NORMAL INSPECTION, NORMOCEPHALIC - Eye Exam Eye Exam: EOMI, Normal appearance Pupil Exam: NORMAL ACCOMODATION, PERRL - ENT Exam ENT Exam: Mucous Membranes Moist, Normal Exam - Neck Exam Neck Exam: Full ROM - Respiratory Exam Respiratory Exam: Clear to Ausculation Bilateral, NORMAL BREATHING PATTERN - Cardiovascular Exam Cardiovascular Exam: REGULAR RHYTHM - GI/Abdominal Exam GI & Abdominal Exam: Normal Bowel Sounds - Rectal Exam Rectal Exam: NORMAL INSPECTION - Exam External exam: NORMAL EXTERNAL EXAM - Extremities Exam Extremities Exam: Full ROM, Normal Capillary Refill, Normal Inspection - Back Exam Back Exam: NORMAL INSPECTION - Neurological Exam Neurological Exam: Alert, Awake Neuro motor strength exam: Left Lower Extremity: 3 - Psychiatric Exam Psychiatric exam: Normal Affect - Skin Skin Exam: Normal Color Assessment and Plan (1) Hip fracture, left Status: Acute (2) Status post total hip replacement, left Assessment & Plan: monitor hip pain, continue with physical, occupational therapy program Status: Acute
[2018-02-27] MEDS: oxyCODONE 5 mg Immediate Release Tab PO PRN (05:34)
[2018-02-27] MEDS: Enoxaparin 30 mg Syringe SC SCH (08:25)
[2018-02-27] MEDS: Cholecalciferol 1,000 INTLU TAB PO SCH (08:26)
[2018-02-27 13:22] LABS: SQUAMOUS EPITHIAL < 1 /hpf (0-5); URINE BILIRUBIN NEGATIVE (NEGATIVE); URINE BLOOD SMALL (NEGATIVE); URINE CLARITY SLIGHTY-CLOUDY (Clear); URINE COLOR YELLOW (YELLOW); URINE GLUCOSE (UA) NEG (Normal); URINE LEUKOCYTE ESTERASE SMALL Leu/uL (Negative); URINE PROTEIN NEGATIVE (NEGATIVE)
--- NOTE | 2018-02-27 16:03 | CP.PCM.PN ---
Subjective - Date & Time of Evaluation Date of Evaluation: 02/27/18 Time of Evaluation: 16:01 - Subjective Subjective: Patient states she still has a lot of thigh and hip pain, but it is a little better Objective - Vital Signs/Intake and Output Vital Signs (last 24 hours): Temp Pulse Resp BP Pulse Ox 97.6 F 79 20 114/60 98 02/27/18 08:22 02/27/18 08:22 02/27/18 08:22 02/27/18 08:22 02/27/18 08:22 - Medications Medications: Current Medications Acetaminophen (Tylenol 325mg Tab) 650 mg PO Q6 PRN PRN Reason: Pain, Mild (1-3) Last Admin: 02/26/18 05:44 Dose: 650 mg Allopurinol (Zyloprim) 100 mg PO DAILY [facility] Last Admin: 02/27/18 08:26 Dose: 100 mg Atorvastatin Calcium (Lipitor) 10 mg PO HS [facility] Last Admin: 02/26/18 21:09 Dose: 10 mg Cholecalciferol (Vitamin D) 1,000 intlu PO DAILY [facility] Last Admin: 02/27/18 08:26 Dose: 1,000 intlu Docusate Sodium (Colace) 100 mg PO BID [facility] Last Admin: 02/27/18 08:25 Dose: 100 mg Enoxaparin Sodium (Lovenox) 30 mg SC DAILY [facility]; Protocol Last Admin: 02/27/18 08:25 Dose: 30 mg Meclizine HCl (Antivert) 12.5 mg PO Q12 PRN PRN Reason: Dizziness Nitrofurantoin Macrocrystals (Macrobid) 100 mg PO Q12 [facility]; Protocol Oxycodone HCl (Oxycodone Immediate Release Tab) 5 mg PO Q6 PRN PRN Reason: Pain, severe (8-10) Last Admin: 02/27/18 05:34 Dose: 5 mg Triamterene/HCTZ (Dyazide 25 Mg-37.5 Mg) 1 cap PO DAILY [facility] Last Admin: 02/25/18 08:10 Dose: 1 cap - Extremities Exam Additional comments: left thigh dressing change. Incision intact, tiny spot of serous drainage on dresssing mid incision. No erythema. Intact, thigh soft, calves soft NT neg homans +ROM ankle/toes, sensation intact +DP/PT pulses Assessment and Plan (1) Left displaced femoral neck fracture Assessment & Plan: POD#6 s/p left THR for fx PT/OT plan tcu to [facility]TE proph d/w Dr. Dyer, agrees with above Status: Resolved
--- NOTE | 2018-02-27 16:34 | CP.PCM.PN ---
Subjective - Date & Time of Evaluation Date of Evaluation: 02/27/18 Time of Evaluation: 14:20 - Subjective Subjective: Patient seen and examined. Complained of frequent, burning sensation on urination. Also complained of pain on the left hip during therapy. Objective - Vital Signs/Intake and Output Vital Signs (last 24 hours): Temp Pulse Resp BP Pulse Ox 98.2 F 87 20 120/61 95 02/27/18 16:31 02/27/18 16:31 02/27/18 16:31 02/27/18 16:31 02/27/18 16:31 - Medications Medications: Current Medications Acetaminophen (Tylenol 325mg Tab) 650 mg PO Q6 PRN PRN Reason: Pain, Mild (1-3) Last Admin: 02/26/18 05:44 Dose: 650 mg Allopurinol (Zyloprim) 100 mg PO DAILY [facility] Last Admin: 02/27/18 08:26 Dose: 100 mg Atorvastatin Calcium (Lipitor) 10 mg PO HS [facility] Last Admin: 02/26/18 21:09 Dose: 10 mg Cholecalciferol (Vitamin D) 1,000 intlu PO DAILY [facility] Last Admin: 02/27/18 08:26 Dose: 1,000 intlu Docusate Sodium (Colace) 100 mg PO BID [facility] Last Admin: 02/27/18 08:25 Dose: 100 mg Enoxaparin Sodium (Lovenox) 30 mg SC DAILY [facility]; Protocol Last Admin: 02/27/18 08:25 Dose: 30 mg Meclizine HCl (Antivert) 12.5 mg PO Q12 PRN PRN Reason: Dizziness Nitrofurantoin Macrocrystals (Macrobid) 100 mg PO Q12 [facility]; Protocol Oxycodone HCl (Oxycodone Immediate Release Tab) 5 mg PO Q6 PRN PRN Reason: Pain, severe (8-10) Last Admin: 02/27/18 05:34 Dose: 5 mg Triamterene/HCTZ (Dyazide 25 Mg-37.5 Mg) 1 cap PO DAILY [facility] Last Admin: 02/25/18 08:10 Dose: 1 cap - Constitutional Appears: No Acute Distress - Head Exam Head Exam: ATRAUMATIC - Eye Exam Eye Exam: absent: Scleral icterus - ENT Exam ENT Exam: Mucous Membranes Moist - Neck Exam Neck Exam: absent: Meningismus - Respiratory Exam Respiratory Exam: absent: Rales, Rhonchi, Wheezes, Respiratory Distress - Cardiovascular Exam Cardiovascular Exam: REGULAR RHYTHM, +S1, +S2 - GI/Abdominal Exam GI & Abdominal Exam: Soft. absent: Tenderness - Rectal Exam Rectal Exam: Deferred - Neurological Exam Neurological Exam: Alert, Oriented x3 - Psychiatric Exam Psychiatric exam: Normal Affect - Skin Skin Exam: Dry, Intact Assessment and Plan - Assessment and Plan (Free Text) Assessment: 87 yo female with history of DM type II, hypercholesterolemia and gout; admitted to TCU post left THR (02/21/18) after a fall causing left hip fracture 1. S/P Left THR pain manageable with pain medication continue PT/OT Dr Dyer following patient 2. Diabetes Mellitus type II Accuchecks ACHS Insulin coverage scale and hypoglycemia protocol continue Metformin 500mg PO q am BMP, HgA1C in am 3. Gout Continue Allopurinol 4. HTN BP controlled in spite of putting Triamterene/HCTZ on hold for 2 days now 5.Hyperlipidemia Continue Atorvastatin 6. DVT prophylaxis on Lovenox 30mg SC daily
[2018-02-28 06:54] LABS: BASO # 0.1 K/uL (0.0-0.2); BASO % 0.8 % (0.0-2.0); EOS # 0.2 K/uL (0.0-0.7); EOS % 2.2 % (0.0-4.0); HEMOGLOBIN 9.5 g/dL (12.0-16.0); LYMPH # 1.2 K/uL (1.0-4.3); LYMPH % 10.7 % (20.0-40.0); MEAN CELL VOLUME 89.6 fl (81.0-99.0); MEAN CORPUSCULAR HGB CONC 33.5 g/dL (33.0-37.0); MONO # 1.5 K/uL (0.0-0.8); MONO % 13.8 % (0.0-10.0); NEUT # 7.9 K/uL (1.8-7.0); NEUT % 72.5 % (50.0-75.0); RBC 3.15 Mil/uL (3.80-5.20); RED CELL DISTRIBUTION WIDTH 13.5 % (11.5-14.5); WHITE BLOOD COUNT 10.9 K/uL (4.8-10.8)
[2018-02-28 07:06] LABS: BLOOD UREA NITROGEN 20 mg/dl (7-17); CALCIUM 9.1 mg/dL (8.4-10.2); GFR NON-AFRICAN AMERICAN > 60
[2018-02-28] MEDS: Enoxaparin 30 mg Syringe SC SCH (08:17)
[2018-02-28] MEDS: Cholecalciferol 1,000 INTLU TAB PO SCH (08:17)
[2018-02-28] MEDS: oxyCODONE 5 mg Immediate Release Tab PO PRN ×2 (09:29→16:37)
--- NOTE | 2018-02-28 11:58 | CP.PCM.PN ---
Subjective - Date & Time of Evaluation Date of Evaluation: 02/28/18 Time of Evaluation: 11:15 - Subjective Subjective: no acute complaints at present Objective - Vital Signs/Intake and Output Vital Signs (last 24 hours): Temp Pulse Resp BP Pulse Ox 97.9 F 71 20 121/53 L 99 02/28/18 08:14 02/28/18 08:14 02/28/18 08:14 02/28/18 08:14 02/28/18 08:14 - Medications Medications: Current Medications Acetaminophen (Tylenol 325mg Tab) 650 mg PO Q6 PRN PRN Reason: Pain, Mild (1-3) Last Admin: 02/28/18 03:46 Dose: 650 mg Acetaminophen (Tylenol 325mg Tab) 650 mg PO Q4 PRN PRN Reason: Fever >100.4 F Last Admin: 02/27/18 20:22 Dose: 650 mg Allopurinol (Zyloprim) 100 mg PO DAILY [facility] Last Admin: 02/28/18 08:17 Dose: 100 mg Atorvastatin Calcium (Lipitor) 10 mg PO HS [facility] Last Admin: 02/27/18 21:34 Dose: 10 mg Cholecalciferol (Vitamin D) 1,000 intlu PO DAILY [facility] Last Admin: 02/28/18 08:17 Dose: 1,000 intlu Docusate Sodium (Colace) 100 mg PO BID [facility] Last Admin: 02/28/18 08:16 Dose: 100 mg Enoxaparin Sodium (Lovenox) 30 mg SC DAILY [facility]; Protocol Last Admin: 02/28/18 08:17 Dose: 30 mg Meclizine HCl (Antivert) 12.5 mg PO Q12 PRN PRN Reason: Dizziness Metformin HCl (Glucophage) 500 mg PO BRK [facility] Last Admin: 02/28/18 08:17 Dose: 500 mg Nitrofurantoin Macrocrystals (Macrobid) 100 mg PO Q12 [facility]; Protocol Last Admin: 02/28/18 08:17 Dose: 100 mg Oxycodone HCl (Oxycodone Immediate Release Tab) 5 mg PO Q6 PRN PRN Reason: Pain, severe (8-10) Last Admin: 02/28/18 09:29 Dose: 5 mg Triamterene/HCTZ (Dyazide 25 Mg-37.5 Mg) 1 cap PO DAILY [facility] Last Admin: 02/25/18 08:10 Dose: 1 cap - Labs Labs: 02/28/18 06:20 02/28/18 06:20 - Head Exam Head Exam: ATRAUMATIC, NORMAL INSPECTION, NORMOCEPHALIC - Eye Exam Eye Exam: Normal appearance, PERRL Pupil Exam: NORMAL ACCOMODATION - ENT Exam ENT Exam: Mucous Membranes Moist, Normal Exam - Neck Exam Neck Exam: Full ROM, Normal Inspection - Respiratory Exam Respiratory Exam: Clear to Ausculation Bilateral, NORMAL BREATHING PATTERN - Cardiovascular Exam Cardiovascular Exam: REGULAR RHYTHM - GI/Abdominal Exam GI & Abdominal Exam: Soft, Normal Bowel Sounds - Rectal Exam Rectal Exam: NORMAL INSPECTION - Exam External exam: NORMAL EXTERNAL EXAM - Extremities Exam Extremities Exam: Full ROM, Normal Capillary Refill, Normal Inspection - Back Exam Back Exam: NORMAL INSPECTION - Neurological Exam Neurological Exam: Alert, Awake Neuro motor strength exam: Left Lower Extremity: 3 - Psychiatric Exam Psychiatric exam: Normal Affect, Normal Mood - Skin Skin Exam: Dry, Intact, Warm Assessment and Plan (1) Hip fracture, left Assessment & Plan: plan for range of motion, strenghtening transfers and gait training Status: Acute (2) Status post total hip replacement, left Status: Acute
--- NOTE | 2018-02-28 12:01 | CP.PCM.PN ---
Subjective - Date & Time of Evaluation Date of Evaluation: 02/27/18 Time of Evaluation: 16:10 - Subjective Subjective: no acute complaints, less leg discomfort Objective - Vital Signs/Intake and Output Vital Signs (last 24 hours): Temp Pulse Resp BP Pulse Ox 97.9 F 71 20 121/53 L 99 02/28/18 08:14 02/28/18 08:14 02/28/18 08:14 02/28/18 08:14 02/28/18 08:14 - Medications Medications: Current Medications Acetaminophen (Tylenol 325mg Tab) 650 mg PO Q6 PRN PRN Reason: Pain, Mild (1-3) Last Admin: 02/28/18 03:46 Dose: 650 mg Acetaminophen (Tylenol 325mg Tab) 650 mg PO Q4 PRN PRN Reason: Fever >100.4 F Last Admin: 02/27/18 20:22 Dose: 650 mg Allopurinol (Zyloprim) 100 mg PO DAILY [facility] Last Admin: 02/28/18 08:17 Dose: 100 mg Atorvastatin Calcium (Lipitor) 10 mg PO HS [facility] Last Admin: 02/27/18 21:34 Dose: 10 mg Cholecalciferol (Vitamin D) 1,000 intlu PO DAILY [facility] Last Admin: 02/28/18 08:17 Dose: 1,000 intlu Docusate Sodium (Colace) 100 mg PO BID [facility] Last Admin: 02/28/18 08:16 Dose: 100 mg Enoxaparin Sodium (Lovenox) 30 mg SC DAILY [facility]; Protocol Last Admin: 02/28/18 08:17 Dose: 30 mg Meclizine HCl (Antivert) 12.5 mg PO Q12 PRN PRN Reason: Dizziness Metformin HCl (Glucophage) 500 mg PO BRK [facility] Last Admin: 02/28/18 08:17 Dose: 500 mg Nitrofurantoin Macrocrystals (Macrobid) 100 mg PO Q12 [facility]; Protocol Last Admin: 02/28/18 08:17 Dose: 100 mg Oxycodone HCl (Oxycodone Immediate Release Tab) 5 mg PO Q6 PRN PRN Reason: Pain, severe (8-10) Last Admin: 02/28/18 09:29 Dose: 5 mg Triamterene/HCTZ (Dyazide 25 Mg-37.5 Mg) 1 cap PO DAILY [facility] Last Admin: 02/25/18 08:10 Dose: 1 cap - Labs Labs: 02/28/18 06:20 02/28/18 06:20 - Head Exam Head Exam: ATRAUMATIC, NORMAL INSPECTION, NORMOCEPHALIC - Eye Exam Eye Exam: EOMI, Normal appearance, PERRL Pupil Exam: NORMAL ACCOMODATION - ENT Exam ENT Exam: Mucous Membranes Moist, Normal Exam - Neck Exam Neck Exam: Full ROM, Normal Inspection - Respiratory Exam Respiratory Exam: Clear to Ausculation Bilateral, NORMAL BREATHING PATTERN - Cardiovascular Exam Cardiovascular Exam: REGULAR RHYTHM - GI/Abdominal Exam GI & Abdominal Exam: Soft, Normal Bowel Sounds - Rectal Exam Rectal Exam: NORMAL INSPECTION - Exam External exam: NORMAL EXTERNAL EXAM - Extremities Exam Extremities Exam: Full ROM, Normal Capillary Refill, Normal Inspection - Back Exam Back Exam: NORMAL INSPECTION - Neurological Exam Neurological Exam: Alert, Awake Neuro motor strength exam: Left Lower Extremity: 3 - Psychiatric Exam Psychiatric exam: Normal Affect, Normal Mood - Skin Skin Exam: Dry, Intact Assessment and Plan (1) Hip fracture, left Status: Acute (2) Status post total hip replacement, left Assessment & Plan: monitor skin, pain, physical, occupational therapy program Status: Acute
[2018-03-01] MEDS: oxyCODONE 5 mg Immediate Release Tab PO PRN ×3 (02:38→16:36)
[2018-03-01] MEDS: Enoxaparin 30 mg Syringe SC SCH (08:30)
[2018-03-01] MEDS: Cholecalciferol 1,000 INTLU TAB PO SCH (08:31)
--- NOTE | 2018-03-01 14:26 | RAD ---
Date of service: 03/01/2018 PROCEDURE: Left Knee Radiographs. HISTORY: Pain. COMPARISON: None. FINDINGS: BONES: Three views of the left knee including sunrise view were performed. No fracture is seen. No lytic process is noted. No significant joint space narrowing is seen. Mild spurring of the tibial spines is noted. Proximal fibula and patella are intact. JOINTS: Very mild degenerative changes. JOINT EFFUSION: Small suprapatellar joint effusion is suspected. OTHER FINDINGS: Mild soft tissue swelling is identified, nonspecific. IMPRESSION: No fracture.
--- NOTE | 2018-03-01 14:27 | RAD ---
Date of service: 03/01/2018 PROCEDURE: Radiographs of the left tibia and fibula. HISTORY: md order COMPARISON: None available. TECHNIQUE: Frontal and lateral views obtained. FINDINGS: BONES: No fracture or destructive lesion. JOINT SPACES: Unremarkable for age. OTHER FINDINGS: No periosteal reaction is seen. Mild soft tissue swelling is noted. IMPRESSION: Unremarkable radiographs of the left tibia and fibula.
--- NOTE | 2018-03-01 14:28 | RAD ---
Date of service: 03/01/2018 PROCEDURE: Left Ankle Radiographs. HISTORY: md order COMPARISON: None available. FINDINGS: BONES: Three views of the left ankle were performed. Posterior and plantar calcaneal spurs are noted. No fracture is seen. No lytic process is noted. Subtalar joint is otherwise unremarkable for age. Calcaneus is intact. Talar dome is normal in outline. Metatarsals are intact. Very mild soft tissue swelling is noted. JOINTS: No ankle mortise widening. SOFT TISSUES: Mild soft tissue OTHER FINDINGS: Swelling. IMPRESSION: No fracture.
[2018-03-02] MEDS: Enoxaparin 30 mg Syringe SC SCH (09:19)
[2018-03-02] MEDS: Cholecalciferol 1,000 INTLU TAB PO SCH (09:19)
[2018-03-03] MEDS: Cholecalciferol 1,000 INTLU TAB PO SCH (08:29)
[2018-03-03] MEDS: Enoxaparin 30 mg Syringe SC SCH (08:29)
--- NOTE | 2018-03-03 17:45 | CP.PCM.PN ---
Subjective - Date & Time of Evaluation Date of Evaluation: 03/03/18 Time of Evaluation: 17:42 - Subjective Subjective: Patient states she is astill having hip pain, but says she is doing better. No new complaints. Objective - Vital Signs/Intake and Output Vital Signs (last 24 hours): Temp Pulse Resp BP Pulse Ox 97.9 F 82 18 109/57 L 96 03/03/18 15:42 03/03/18 15:42 03/03/18 15:42 03/03/18 15:42 03/03/18 15:42 - Medications Medications: Current Medications Acetaminophen (Tylenol 325mg Tab) 650 mg PO Q6 PRN PRN Reason: Pain, Mild (1-3) Last Admin: 03/03/18 12:38 Dose: 650 mg Acetaminophen (Tylenol 325mg Tab) 650 mg PO Q4 PRN PRN Reason: Fever >100.4 F Last Admin: 02/28/18 19:44 Dose: 650 mg Allopurinol (Zyloprim) 100 mg PO DAILY [facility] Last Admin: 03/03/18 08:29 Dose: 100 mg Atorvastatin Calcium (Lipitor) 10 mg PO HS [facility] Last Admin: 03/02/18 22:00 Dose: 10 mg Cholecalciferol (Vitamin D) 1,000 intlu PO DAILY [facility] Last Admin: 03/03/18 08:29 Dose: 1,000 intlu Ciprofloxacin (Cipro) 500 mg PO Q12 [facility]; Protocol Last Admin: 03/03/18 08:29 Dose: 500 mg Docusate Sodium (Colace) 100 mg PO BID [facility] Last Admin: 03/03/18 16:14 Dose: 100 mg Enoxaparin Sodium (Lovenox) 30 mg SC DAILY [facility]; Protocol Last Admin: 03/03/18 08:29 Dose: 30 mg Meclizine HCl (Antivert) 12.5 mg PO Q12 PRN PRN Reason: Dizziness Metformin HCl (Glucophage) 500 mg PO BRK [facility] Last Admin: 03/03/18 08:29 Dose: 500 mg Oxycodone HCl (Oxycodone Immediate Release Tab) 5 mg PO Q6 PRN PRN Reason: Pain, severe (8-10) Last Admin: 03/01/18 16:36 Dose: 5 mg Triamterene/HCTZ (Dyazide 25 Mg-37.5 Mg) 1 cap PO DAILY [facility] Last Admin: 02/25/18 08:10 Dose: 1 cap - Labs Labs: 02/28/18 06:20 02/28/18 06:20 - Extremities Exam Additional comments: Left hip: dressing changed. Dry. Incision intact, no erythema. +ROM ankle/toes, sensation intact, +DP/PT pulses, calves soft NT neg homans, op site applied. Assessment and Plan (1) Left displaced femoral neck fracture Assessment & Plan: POD#10 s/p left THR for fx ortho stable cont PT/OT/VTE proph d/w Dr. Dyer, agrees with above Status: Resolved
--- NOTE | 2018-03-03 19:59 | CP.PCM.PN ---
Subjective - Date & Time of Evaluation Date of Evaluation: 03/03/18 Time of Evaluation: 18:00 - Subjective Subjective: patient with less complaints of discomfort Objective - Vital Signs/Intake and Output Vital Signs (last 24 hours): Temp Pulse Resp BP Pulse Ox 97.9 F 82 18 109/57 L 96 03/03/18 15:42 03/03/18 15:42 03/03/18 15:42 03/03/18 15:42 03/03/18 15:42 - Medications Medications: Current Medications Acetaminophen (Tylenol 325mg Tab) 650 mg PO Q6 PRN PRN Reason: Pain, Mild (1-3) Last Admin: 03/03/18 12:38 Dose: 650 mg Acetaminophen (Tylenol 325mg Tab) 650 mg PO Q4 PRN PRN Reason: Fever >100.4 F Last Admin: 02/28/18 19:44 Dose: 650 mg Allopurinol (Zyloprim) 100 mg PO DAILY [facility] Last Admin: 03/03/18 08:29 Dose: 100 mg Atorvastatin Calcium (Lipitor) 10 mg PO HS [facility] Last Admin: 03/02/18 22:00 Dose: 10 mg Cholecalciferol (Vitamin D) 1,000 intlu PO DAILY [facility] Last Admin: 03/03/18 08:29 Dose: 1,000 intlu Ciprofloxacin (Cipro) 500 mg PO Q12 [facility]; Protocol Last Admin: 03/03/18 08:29 Dose: 500 mg Docusate Sodium (Colace) 100 mg PO BID [facility] Last Admin: 03/03/18 16:14 Dose: 100 mg Enoxaparin Sodium (Lovenox) 30 mg SC DAILY [facility]; Protocol Last Admin: 03/03/18 08:29 Dose: 30 mg Meclizine HCl (Antivert) 12.5 mg PO Q12 PRN PRN Reason: Dizziness Metformin HCl (Glucophage) 500 mg PO BRK [facility] Last Admin: 03/03/18 08:29 Dose: 500 mg Oxycodone HCl (Oxycodone Immediate Release Tab) 5 mg PO Q6 PRN PRN Reason: Pain, severe (8-10) Last Admin: 03/01/18 16:36 Dose: 5 mg Triamterene/HCTZ (Dyazide 25 Mg-37.5 Mg) 1 cap PO DAILY [facility] Last Admin: 02/25/18 08:10 Dose: 1 cap - Labs Labs: 02/28/18 06:20 02/28/18 06:20 - Constitutional Appears: Well - Head Exam Head Exam: ATRAUMATIC, NORMAL INSPECTION, NORMOCEPHALIC - Eye Exam Eye Exam: EOMI, Normal appearance Pupil Exam: NORMAL ACCOMODATION, PERRL - ENT Exam ENT Exam: Mucous Membranes Moist, Normal Exam - Neck Exam Neck Exam: Normal Inspection - Respiratory Exam Respiratory Exam: Clear to Ausculation Bilateral, NORMAL BREATHING PATTERN - Cardiovascular Exam Cardiovascular Exam: REGULAR RHYTHM - GI/Abdominal Exam GI & Abdominal Exam: Soft, Normal Bowel Sounds - Rectal Exam Rectal Exam: NORMAL INSPECTION - Exam External exam: NORMAL EXTERNAL EXAM Bimanual exam: NORMAL BIMANUAL EXAM - Extremities Exam Extremities Exam: Full ROM - Back Exam Back Exam: NORMAL INSPECTION - Neurological Exam Neurological Exam: Alert, Awake Neuro motor strength exam: Left Lower Extremity: 3 - Psychiatric Exam Psychiatric exam: Normal Affect, Normal Mood Assessment and Plan (1) Hip fracture, left Status: Acute (2) Status post total hip replacement, left Assessment & Plan: to continue with physical, occupational therapy program. For discharge planning, with additional services after Dc and equipment evaluation. Status: Acute
[2018-03-04] MEDS: Enoxaparin 30 mg Syringe SC SCH (08:29)
[2018-03-04] MEDS: Cholecalciferol 1,000 INTLU TAB PO SCH (08:30)
--- NOTE | 2018-03-04 16:36 | CP.PCM.PN ---
Subjective - Date & Time of Evaluation Date of Evaluation: 03/04/18 Time of Evaluation: 13:20 - Subjective Subjective: Patient seen and examined. Still with pain although lesser on left hip during ambulation and therapy Objective - Vital Signs/Intake and Output Vital Signs (last 24 hours): Temp Pulse Resp BP Pulse Ox 97.2 F L 78 20 112/58 L 96 03/04/18 15:59 03/04/18 15:59 03/04/18 15:59 03/04/18 15:59 03/04/18 15:59 - Medications Medications: Current Medications Acetaminophen (Tylenol 325mg Tab) 650 mg PO Q6 PRN PRN Reason: Pain, Mild (1-3) Last Admin: 03/04/18 14:25 Dose: 650 mg Acetaminophen (Tylenol 325mg Tab) 650 mg PO Q4 PRN PRN Reason: Fever >100.4 F Last Admin: 02/28/18 19:44 Dose: 650 mg Allopurinol (Zyloprim) 100 mg PO DAILY [facility] Last Admin: 03/04/18 08:31 Dose: 100 mg Atorvastatin Calcium (Lipitor) 10 mg PO HS [facility] Last Admin: 03/03/18 21:30 Dose: 10 mg Cholecalciferol (Vitamin D) 1,000 intlu PO DAILY [facility] Last Admin: 03/04/18 08:30 Dose: 1,000 intlu Ciprofloxacin (Cipro) 500 mg PO Q12 [facility]; Protocol Last Admin: 03/04/18 08:30 Dose: 500 mg Docusate Sodium (Colace) 100 mg PO BID [facility] Last Admin: 03/04/18 16:27 Dose: 100 mg Enoxaparin Sodium (Lovenox) 30 mg SC DAILY [facility]; Protocol Last Admin: 03/04/18 08:29 Dose: 30 mg Meclizine HCl (Antivert) 12.5 mg PO Q12 PRN PRN Reason: Dizziness Metformin HCl (Glucophage) 500 mg PO BRK [facility] Last Admin: 03/04/18 08:31 Dose: 500 mg Oxycodone HCl (Oxycodone Immediate Release Tab) 5 mg PO Q6 PRN PRN Reason: Pain, severe (8-10) Last Admin: 03/01/18 16:36 Dose: 5 mg Triamterene/HCTZ (Dyazide 25 Mg-37.5 Mg) 1 cap PO DAILY [facility] Last Admin: 02/25/18 08:10 Dose: 1 cap - Labs Labs: 02/28/18 06:20 02/28/18 06:20 - Constitutional Appears: No Acute Distress - Head Exam Head Exam: ATRAUMATIC - Eye Exam Eye Exam: absent: Scleral icterus - ENT Exam ENT Exam: Mucous Membranes Moist - Neck Exam Neck Exam: absent: Meningismus - Respiratory Exam Respiratory Exam: absent: Rales, Rhonchi, Wheezes, Respiratory Distress - Cardiovascular Exam Cardiovascular Exam: REGULAR RHYTHM, +S1, +S2 - GI/Abdominal Exam GI & Abdominal Exam: Soft. absent: Tenderness - Rectal Exam Rectal Exam: Deferred - Back Exam Back Exam: absent: tenderness - Neurological Exam Neurological Exam: Alert, Oriented x3 - Psychiatric Exam Psychiatric exam: Normal Affect - Skin Skin Exam: Dry, Intact Assessment and Plan - Assessment and Plan (Free Text) Assessment: 87 yo female with history of DM type II, hypercholesterolemia and gout; admitted to TCU post left THR (02/21/18) after a fall causing left hip fracture 1. S/P Left THR pain manageable continue PT/OT with pain medication Dr Dyer following patient 2. Diabetes Mellitus type II BS controlled continue Metformin 500mg PO q am HgA1C: 6.2 3. Gout Continue Allopurinol 4. HTN BP controlled without meds 5. Hyperlipidemia Continue Atorvastatin 6. UTI urine grew Citrobacter Cipro 500mg PO q 12hrs 7. DVT prophylaxis on Lovenox 30mg SC daily
[2018-03-05] MEDS: Enoxaparin 30 mg Syringe SC SCH (08:55)
[2018-03-05] MEDS: Cholecalciferol 1,000 INTLU TAB PO SCH (08:55)
--- NOTE | 2018-03-05 11:41 | CP.PCM.PN ---
Subjective - Date & Time of Evaluation Date of Evaluation: 03/05/18 Time of Evaluation: 11:00 - Subjective Subjective: patient with less leg pain Objective - Vital Signs/Intake and Output Vital Signs (last 24 hours): Temp Pulse Resp BP Pulse Ox 97.7 F 85 18 182/70 H 98 03/05/18 08:19 03/05/18 08:19 03/05/18 08:19 03/05/18 08:19 03/05/18 08:19 - Medications Medications: Current Medications Acetaminophen (Tylenol 325mg Tab) 650 mg PO Q6 PRN PRN Reason: Pain, Mild (1-3) Last Admin: 03/04/18 14:25 Dose: 650 mg Acetaminophen (Tylenol 325mg Tab) 650 mg PO Q4 PRN PRN Reason: Fever >100.4 F Last Admin: 02/28/18 19:44 Dose: 650 mg Allopurinol (Zyloprim) 100 mg PO DAILY [facility] Last Admin: 03/05/18 08:55 Dose: 100 mg Atorvastatin Calcium (Lipitor) 10 mg PO HS [facility] Last Admin: 03/04/18 21:34 Dose: 10 mg Cholecalciferol (Vitamin D) 1,000 intlu PO DAILY [facility] Last Admin: 03/05/18 08:55 Dose: 1,000 intlu Ciprofloxacin (Cipro) 500 mg PO Q12 [facility]; Protocol Last Admin: 03/05/18 08:55 Dose: 500 mg Docusate Sodium (Colace) 100 mg PO BID [facility] Last Admin: 03/05/18 08:55 Dose: 100 mg Enoxaparin Sodium (Lovenox) 30 mg SC DAILY [facility]; Protocol Last Admin: 03/05/18 08:55 Dose: 30 mg Meclizine HCl (Antivert) 12.5 mg PO Q12 PRN PRN Reason: Dizziness Metformin HCl (Glucophage) 500 mg PO BRK [facility] Last Admin: 03/05/18 08:54 Dose: 500 mg Oxycodone HCl (Oxycodone Immediate Release Tab) 5 mg PO Q6 PRN PRN Reason: Pain, severe (8-10) Last Admin: 03/01/18 16:36 Dose: 5 mg Triamterene/HCTZ (Dyazide 25 Mg-37.5 Mg) 1 cap PO DAILY [facility] Last Admin: 02/25/18 08:10 Dose: 1 cap - Labs Labs: 02/28/18 06:20 02/28/18 06:20 - Constitutional Appears: Well - Head Exam Head Exam: ATRAUMATIC, NORMAL INSPECTION, NORMOCEPHALIC - Eye Exam Eye Exam: EOMI, Normal appearance, PERRL Pupil Exam: NORMAL ACCOMODATION - ENT Exam ENT Exam: Mucous Membranes Moist, Normal Exam - Neck Exam Neck Exam: Full ROM, Normal Inspection - Respiratory Exam Respiratory Exam: NORMAL BREATHING PATTERN - Cardiovascular Exam Cardiovascular Exam: REGULAR RHYTHM - GI/Abdominal Exam GI & Abdominal Exam: Soft, Normal Bowel Sounds - Rectal Exam Rectal Exam: NORMAL INSPECTION - Exam External exam: NORMAL EXTERNAL EXAM - Extremities Exam Extremities Exam: Full ROM, Normal Capillary Refill, Normal Inspection - Back Exam Back Exam: NORMAL INSPECTION - Neurological Exam Neurological Exam: Alert, Awake Neuro motor strength exam: Left Lower Extremity: 3 - Psychiatric Exam Psychiatric exam: Normal Affect, Normal Mood - Skin Skin Exam: Dry, Intact Assessment and Plan (1) Hip fracture, left Status: Acute (2) Status post total hip replacement, left Assessment & Plan: plan for physical, occupational therapy and equipment and Dc planning Status: Acute
--- NOTE | 2018-03-05 11:48 | CP.PCM.PN ---
Subjective - Date & Time of Evaluation Date of Evaluation: 03/05/18 Time of Evaluation: 11:44 - Subjective Subjective: Patient states that pain is improving, denies CP/SOB/dizziness. Complaining of urinary frequency Objective - Vital Signs/Intake and Output Vital Signs (last 24 hours): Temp Pulse Resp BP Pulse Ox 97.7 F 85 18 182/70 H 98 03/05/18 08:19 03/05/18 08:19 03/05/18 08:19 03/05/18 08:19 03/05/18 08:19 - Medications Medications: Current Medications Acetaminophen (Tylenol 325mg Tab) 650 mg PO Q6 PRN PRN Reason: Pain, Mild (1-3) Last Admin: 03/04/18 14:25 Dose: 650 mg Acetaminophen (Tylenol 325mg Tab) 650 mg PO Q4 PRN PRN Reason: Fever >100.4 F Last Admin: 02/28/18 19:44 Dose: 650 mg Allopurinol (Zyloprim) 100 mg PO DAILY [facility] Last Admin: 03/05/18 08:55 Dose: 100 mg Atorvastatin Calcium (Lipitor) 10 mg PO HS [facility] Last Admin: 03/04/18 21:34 Dose: 10 mg Cholecalciferol (Vitamin D) 1,000 intlu PO DAILY [facility] Last Admin: 03/05/18 08:55 Dose: 1,000 intlu Ciprofloxacin (Cipro) 500 mg PO Q12 [facility]; Protocol Last Admin: 03/05/18 08:55 Dose: 500 mg Docusate Sodium (Colace) 100 mg PO BID [facility] Last Admin: 03/05/18 08:55 Dose: 100 mg Enoxaparin Sodium (Lovenox) 30 mg SC DAILY [facility]; Protocol Last Admin: 03/05/18 08:55 Dose: 30 mg Meclizine HCl (Antivert) 12.5 mg PO Q12 PRN PRN Reason: Dizziness Metformin HCl (Glucophage) 500 mg PO BRK [facility] Last Admin: 03/05/18 08:54 Dose: 500 mg Oxycodone HCl (Oxycodone Immediate Release Tab) 5 mg PO Q6 PRN PRN Reason: Pain, severe (8-10) Last Admin: 03/01/18 16:36 Dose: 5 mg Triamterene/HCTZ (Dyazide 25 Mg-37.5 Mg) 1 cap PO DAILY [facility] Last Admin: 02/25/18 08:10 Dose: 1 cap - Labs Labs: 02/28/18 06:20 02/28/18 06:20 - Extremities Exam Additional comments: +ROM ankle/toes, sensation intact, +DP/PT pulses calves soft NT , incision dry, no erythema Assessment and Plan (1) Left displaced femoral neck fracture Assessment & Plan: POD#12 s/p left THR for fx ortho stable cont PT/OT cont VTE proph d/w Dr. Dyer, agrees with above Status: Resolved
[2018-03-05 15:32] VITALS: RESP 20
[2018-03-06] MEDS: Cholecalciferol 1,000 INTLU TAB PO SCH (08:31)
[2018-03-06] MEDS: Enoxaparin 30 mg Syringe SC SCH (08:33)
--- NOTE | 2018-03-06 15:51 | CP.PCM.CON ---
History of Present Illness - History of Present Illness History of Present Illness: Podiatry consult note for Dr. Moore, 87 year patient admitted to TCU after a L MELISSA secondary due to a fall, with PMH of DM, HTN,GOUT and hypercholestremia seen at bedside for elongated toenails. Patient states theyre sometimes painful because of the length. states she regularly sees a trust and estates attorney however cannot recall the name. denies any other pedal complains. denies f/n/v/sob. Past Patient History - Past Medical History & Family History Past Medical History?: Yes - Past Social History Smoking Status: Former Smoker - CARDIAC Hx Hypercholesterolemia: Yes Hx Hypertension: Yes - PULMONARY Hx Respiratory Disorders: No Other/Comment: occasional cough - NEUROLOGICAL Hx Neurological Disorder: Yes Hx Dizziness: Yes - HEENT Hx HEENT Problems: No - RENAL Hx Chronic Kidney Disease: No Other/Comment: bladder prolapse - ENDOCRINE/METABOLIC Hx Endocrine Disorders: Yes Hx Diabetes Mellitus Type 1: Yes - HEMATOLOGICAL/ONCOLOGICAL Hx Blood Disorders: No Hx AIDS: No Hx Human Immunodeficiency Virus (HIV): No - INTEGUMENTARY Hx Dermatological Problems: No - MUSCULOSKELETAL/RHEUMATOLOGICAL Hx Musculoskeletal Disorders: Yes Hx Arthritis: Yes Hx Falls: Yes - GASTROINTESTINAL Hx Gastrointestinal Disorders: No - GENITOURINARY/GYNECOLOGICAL Hx Genitourinary Disorders: No - PSYCHIATRIC Hx Psychophysiologic Disorder: No Hx Substance Use: No - SURGICAL HISTORY Hx Surgeries: Yes Hx Appendectomy: Yes Hx Hysterectomy: Yes Hx Tonsillectomy: Yes Other/Comment: bladder prolapse correction. 02/20 left total hip replacement - ANESTHESIA Hx Anesthesia: Yes Hx Anesthesia Reactions: No Hx Malignant Hyperthermia: No Meds Allergies/Adverse Reactions: Allergies Allergy/AdvReac Type Severity Reaction Status Date / Time No Known Allergies Allergy Verified 02/20/18 13:26 - Medications Medications: Current Medications Acetaminophen (Tylenol 325mg Tab) 650 mg PO Q6 PRN PRN Reason: Pain, Mild (1-3) Last Admin: 03/05/18 12:16 Dose: 650 mg Acetaminophen (Tylenol 325mg Tab) 650 mg PO Q4 PRN PRN Reason: Fever >100.4 F Last Admin: 02/28/18 19:44 Dose: 650 mg Allopurinol (Zyloprim) 100 mg PO DAILY [facility] Last Admin: 03/06/18 08:32 Dose: 100 mg Atorvastatin Calcium (Lipitor) 10 mg PO HS [facility] Last Admin: 03/05/18 21:25 Dose: 10 mg Cholecalciferol (Vitamin D) 1,000 intlu PO DAILY [facility] Last Admin: 03/06/18 08:31 Dose: 1,000 intlu Ciprofloxacin (Cipro) 500 mg PO Q12 [facility]; Protocol Last Admin: 03/06/18 08:29 Dose: 500 mg Docusate Sodium (Colace) 100 mg PO BID [facility] Last Admin: 03/06/18 08:30 Dose: 100 mg Enoxaparin Sodium (Lovenox) 30 mg SC DAILY [facility]; Protocol Last Admin: 03/06/18 08:33 Dose: 30 mg Meclizine HCl (Antivert) 12.5 mg PO Q12 PRN PRN Reason: Dizziness Metformin HCl (Glucophage) 500 mg PO BRK [facility] Last Admin: 03/06/18 08:31 Dose: 500 mg Oxycodone HCl (Oxycodone Immediate Release Tab) 5 mg PO Q6 PRN PRN Reason: Pain, severe (8-10) Last Admin: 03/01/18 16:36 Dose: 5 mg Triamterene/HCTZ (Dyazide 25 Mg-37.5 Mg) 1 cap PO DAILY [facility] Last Admin: 02/25/18 08:10 Dose: 1 cap Physical Exam - Constitutional Appears: Well, Non-toxic - Head Exam Head Exam: ATRAUMATIC - Extremities Exam Additional comments: Bilateral lower extremity examination: vscular: dp/pt palpable, CFT <3 secs x10, TG warm to warm, no edema or erythema noted derm: no open lesions, elongated toenails x 10, no clinical signs of infection neuro: protective sensation intact via ipswich 4/4 b/l Results - Vital Signs Recent Vital Signs: Last Vital Signs Temp 98.1 F 03/06/18 10:00 Pulse 80 03/06/18 10:00 Resp 20 03/06/18 10:00 BP 124/58 L 03/06/18 10:00 Pulse Ox 99 03/06/18 10:00 - Labs Result Diagrams: 02/28/18 06:20 02/28/18 06:20 Labs: Laboratory Results - last 24 hr 03/05/18 03/05/18 03/06/18 15:51 20:40 06:03 POC Glucose (mg/dL) 136 H 134 H 111 H 11/15/18 10:32 POC Glucose (mg/dL) 240 H Assessment & Plan - Assessment and Plan (Free Text) Assessment: 87 yo female seen and evaluated for elongated toe nails Plan: Patient seen and evaluated History and plan discussed with Dr. Moore Nails debrided using sterile nail nippers x 10 Tolerated without any complications Podiatry will sign off at this time thank you for the consult. please reconsult if needed
[2018-03-07 08:26] VITALS: BP 132/67; PULSE 85; TEMP 97.8; O2SAT 99
[2018-03-07] MEDS: Enoxaparin 30 mg Syringe SC SCH (08:52)
[2018-03-07] MEDS: Cholecalciferol 1,000 INTLU TAB PO SCH (08:53)
--- NOTE | 2018-03-07 11:21 | CP.PCM.DIS ---
Provider - Provider Date of Admission: 02/24/18 16:27 Attending physician: Jaylan Eagle Consults: Dr Lockhart Time Spent in preparation of Discharge (in minutes): 25 Diagnosis - Discharge Diagnosis (1) Status post total hip replacement, left Status: Acute Comment: for transfer to [facility] to continue PT/OT (2) DM2 (diabetes mellitus, type 2) Status: Chronic Comment: continue Metformin 500mg PO q am (3) Gout Status: Chronic Comment: stable. continue Allopurinol (4) UTI (urinary tract infection) Status: Resolved Comment: completed antibiotics (Macrobid then Cipro) for 8 days Hospital Course - Lab Results Lab Results: Micro Results 02/28/18 21:25 Blood-Venous Blood Culture - Final NO GROWTH AFTER 5 DAYS 02/28/18 21:25 Blood-Venous Gram Stain - Final TEST NOT PERFORMED 02/28/18 21:20 Blood-Venous Blood Culture - Final NO GROWTH AFTER 5 DAYS 02/28/18 21:20 Blood-Venous Gram Stain - Final TEST NOT PERFORMED 02/27/18 16:00 Urine Urine Culture - Final Citrobacter Diversus Most Recent Lab Values WBC 10.9 K/uL (4.8-10.8) H 02/28/18 06:20 RBC 3.15 Mil/uL (3.80-5.20) L 02/28/18 06:20 Hgb 9.5 g/dL (12.0-16.0) L 02/28/18 06:20 Hct 28.2 % (34.0-47.0) L 02/28/18 06:20 MCV 89.6 fl (81.0-99.0) 02/28/18 06:20 MCH 30.0 pg (27.0-31.0) 02/28/18 06:20 MCHC 33.5 g/dL (33.0-37.0) 02/28/18 06:20 RDW 13.5 % (11.5-14.5) 02/28/18 06:20 Plt Count 288 K/uL (130-400) D 02/28/18 06:20 MPV 7.0 fl (7.2-11.7) L 02/28/18 06:20 Neut % (Auto) 72.5 % (50.0-75.0) 02/28/18 06:20 Lymph % (Auto) 10.7 % (20.0-40.0) L 02/28/18 06:20 Arthur % (Auto) 13.8 % (0.0-10.0) H 02/28/18 06:20 Eos % (Auto) 2.2 % (0.0-4.0) 02/28/18 06:20 Baso % (Auto) 0.8 % (0.0-2.0) 02/28/18 06:20 Neut # (Auto) 7.9 K/uL (1.8-7.0) H 02/28/18 06:20 Lymph # (Auto) 1.2 K/uL (1.0-4.3) 02/28/18 06:20 Arthur # (Auto) 1.5 K/uL (0.0-0.8) H 02/28/18 06:20 Eos # (Auto) 0.2 K/uL (0.0-0.7) 02/28/18 06:20 Baso # (Auto) 0.1 K/uL (0.0-0.2) 02/28/18 06:20 Sodium 135 mmol/l (132-148) 02/28/18 06:20 Potassium 3.7 MMOL/L (3.6-5.0) 02/28/18 06:20 Chloride 96 mmol/L (98-107) L 02/28/18 06:20 Carbon Dioxide 32 mmol/L (22-30) H 02/28/18 06:20 Anion Gap 11 (10-20) 02/28/18 06:20 BUN 20 mg/dl (7-17) H 02/28/18 06:20 Creatinine 0.8 mg/dl (0.7-1.2) 02/28/18 06:20 Est GFR ( Amer) > 60 02/28/18 06:20 Est GFR (Non-Af Amer) > 60 02/28/18 06:20 POC Glucose (mg/dL) 113 mg/dL (65-110) H 03/07/18 06:17 Random Glucose 151 mg/dL (65-105) H 02/28/18 06:20 Hemoglobin A1c 6.2 % (4.2-6.5) 02/28/18 06:20 Calcium 9.1 mg/dL (8.4-10.2) 02/28/18 06:20 Urine Color Yellow (YELLOW) 02/27/18 11:20 Urine Clarity Slighty-cloudy (Clear) 02/27/18 11:20 Urine pH 6.0 (5.0-8.0) 02/27/18 11:20 Ur Specific [place] 1.005 (1.003-1.030) 02/27/18 11:20 Urine Protein Negative mg/dL (NEGATIVE) 02/27/18 11:20 Urine Glucose (UA) Neg mg/dL (Normal) 02/27/18 11:20 Urine Ketones Negative mg/dL (NEGATIVE) 02/27/18 11:20 Urine Blood Small (NEGATIVE) 02/27/18 11:20 Urine Nitrate Negative (NEGATIVE) 02/27/18 11:20 Urine Bilirubin Negative (NEGATIVE) 02/27/18 11:20 Urine Urobilinogen 4.0 mg/dL (0.2-1.0) H 02/27/18 11:20 Ur Leukocyte Esterase Small Sveta/uL (Negative) 02/27/18 11:20 Urine Microscopic WBC 18 /hpf (0-5) H 02/27/18 11:20 Ur Squamous Epith Cells < 1 /hpf (0-5) 02/27/18 11:20 - Hospital Course Hospital Course: 87 yo female with history of DM type II, HLD and gout fell on a chucrch step on 02/20/18 and had a subcapital fracture of the left femur. She had left THR the next day and was admitted to TCU for therapy on 02/25/18. Patient did well with therapy but would need further rehab and would be transferred today to [facility]. Patient was discharged in stable condition. Patient had UTI while in the unit and was treated with Macrobid and Cipro for 8 days. . Discharge Exam - Head Exam Head Exam: ATRAUMATIC - Eye Exam Eye Exam: absent: Scleral icterus - ENT Exam ENT Exam: Mucous Membranes Moist - Respiratory Exam Respiratory Exam: absent: Rales, Rhonchi, Wheezes, Respiratory Distress, Stridor - Cardiovascular Exam Cardiovascular Exam: REGULAR RHYTHM, +S1, +S2 - GI/Abdominal Exam GI & Abdominal Exam: Soft. absent: Tenderness - Rectal Exam Rectal Exam: Deferred - Neurological Exam Neurological exam: Alert, Oriented x3 - Psychiatric Exam Psychiatric exam: Normal Affect - Skin Skin Exam: Dry, Intact Discharge Plan - Follow Up Plan Condition: GOOD Disposition: HOME/ ROUTINE Instructions: Preventing Falls in the Older Adult, Total Hip Replacement (DC), Anterior Hip Replacement (DC) Additional Instructions: Follow up with DR. Dyer within 2 weeks and primary physician within a week
--- NOTE | 2018-03-07 12:28 | CP.PCM.PN ---
Subjective - Date & Time of Evaluation Date of Evaluation: 03/07/18 Time of Evaluation: 09:00 - Subjective Subjective: no acute complaints at present Objective - Vital Signs/Intake and Output Vital Signs (last 24 hours): Temp Pulse Resp BP Pulse Ox 97.8 F 85 20 132/67 99 03/07/18 10:00 03/07/18 10:00 03/07/18 10:00 03/07/18 10:00 03/07/18 10:00 - Medications Medications: Current Medications Acetaminophen (Tylenol 325mg Tab) 650 mg PO Q6 PRN PRN Reason: Pain, Mild (1-3) Last Admin: 03/05/18 12:16 Dose: 650 mg Acetaminophen (Tylenol 325mg Tab) 650 mg PO Q4 PRN PRN Reason: Fever >100.4 F Last Admin: 02/28/18 19:44 Dose: 650 mg Allopurinol (Zyloprim) 100 mg PO DAILY [facility] Last Admin: 03/07/18 08:52 Dose: 100 mg Atorvastatin Calcium (Lipitor) 10 mg PO HS [facility] Last Admin: 03/06/18 22:24 Dose: 10 mg Cholecalciferol (Vitamin D) 1,000 intlu PO DAILY [facility] Last Admin: 03/07/18 08:53 Dose: 1,000 intlu Docusate Sodium (Colace) 100 mg PO BID [facility] Last Admin: 03/07/18 08:53 Dose: 100 mg Meclizine HCl (Antivert) 12.5 mg PO Q12 PRN PRN Reason: Dizziness Metformin HCl (Glucophage) 500 mg PO BRK [facility] Last Admin: 03/07/18 08:52 Dose: 500 mg Oxycodone HCl (Oxycodone Immediate Release Tab) 5 mg PO Q6 PRN PRN Reason: Pain, severe (8-10) Last Admin: 03/01/18 16:36 Dose: 5 mg Triamterene/HCTZ (Dyazide 25 Mg-37.5 Mg) 1 cap PO DAILY [facility] Last Admin: 02/25/18 08:10 Dose: 1 cap - Labs Labs: 02/28/18 06:20 02/28/18 06:20 - Head Exam Head Exam: ATRAUMATIC, NORMAL INSPECTION, NORMOCEPHALIC - Eye Exam Eye Exam: EOMI, Normal appearance, PERRL Pupil Exam: NORMAL ACCOMODATION - ENT Exam ENT Exam: Mucous Membranes Moist, Normal Exam - Neck Exam Neck Exam: Full ROM, Normal Inspection - Respiratory Exam Respiratory Exam: Clear to Ausculation Bilateral, NORMAL BREATHING PATTERN - Cardiovascular Exam Cardiovascular Exam: REGULAR RHYTHM - GI/Abdominal Exam GI & Abdominal Exam: Soft, Normal Bowel Sounds - Rectal Exam Rectal Exam: NORMAL INSPECTION - Exam External exam: NORMAL EXTERNAL EXAM - Extremities Exam Extremities Exam: Full ROM, Normal Capillary Refill, Normal Inspection - Back Exam Back Exam: NORMAL INSPECTION - Neurological Exam Neurological Exam: Alert, Awake Neuro motor strength exam: Left Lower Extremity: 3 - Psychiatric Exam Psychiatric exam: Normal Affect - Skin Skin Exam: Dry Assessment and Plan (1) Hip fracture, left Status: Acute (2) Status post total hip replacement, left Assessment & Plan: status post therapy plan for discharge home follow up with PMD and orthopedic after discharge Status: Acute
--- NOTE | 2018-03-07 14:03 | CP.PCM.PN ---
Subjective - Date & Time of Evaluation Date of Evaluation: 03/07/18 Time of Evaluation: 07:00 - Subjective Subjective: Patient seen and examined at bedside comfortable. Pain much improved. Tolerating PT well. No new complaints. Objective - Vital Signs/Intake and Output Vital Signs (last 24 hours): Temp Pulse Resp BP Pulse Ox 97.8 F 85 20 132/67 99 03/07/18 10:00 03/07/18 10:00 03/07/18 10:00 03/07/18 10:00 03/07/18 10:00 - Medications Medications: Current Medications Acetaminophen (Tylenol 325mg Tab) 650 mg PO Q6 PRN PRN Reason: Pain, Mild (1-3) Last Admin: 03/05/18 12:16 Dose: 650 mg Acetaminophen (Tylenol 325mg Tab) 650 mg PO Q4 PRN PRN Reason: Fever >100.4 F Last Admin: 02/28/18 19:44 Dose: 650 mg Allopurinol (Zyloprim) 100 mg PO DAILY [facility] Last Admin: 03/07/18 08:52 Dose: 100 mg Atorvastatin Calcium (Lipitor) 10 mg PO HS [facility] Last Admin: 03/06/18 22:24 Dose: 10 mg Cholecalciferol (Vitamin D) 1,000 intlu PO DAILY [facility] Last Admin: 03/07/18 08:53 Dose: 1,000 intlu Docusate Sodium (Colace) 100 mg PO BID [facility] Last Admin: 03/07/18 08:53 Dose: 100 mg Meclizine HCl (Antivert) 12.5 mg PO Q12 PRN PRN Reason: Dizziness Metformin HCl (Glucophage) 500 mg PO BRK [facility] Last Admin: 03/07/18 08:52 Dose: 500 mg Oxycodone HCl (Oxycodone Immediate Release Tab) 5 mg PO Q6 PRN PRN Reason: Pain, severe (8-10) Last Admin: 03/01/18 16:36 Dose: 5 mg Triamterene/HCTZ (Dyazide 25 Mg-37.5 Mg) 1 cap PO DAILY [facility] Last Admin: 02/25/18 08:10 Dose: 1 cap - Labs Labs: 02/28/18 06:20 02/28/18 06:20 - Extremities Exam Additional comments: L hip: dressings CDI sensation intact SP/DP/TN motor intact EHL/FHL/TA/G pedal pulses intact calves soft NT b/l Assessment and Plan (1) Status post total hip replacement, left Assessment & Plan: POD #14 s/p L MELISSA anterior approach -dressings changed -PT/OT -DVT ppx -orthopedically stable for discharge to rehab -above d/w Dr. Dyer in agreement Status: Acute
== END 2018-03-07 14:45 | DRG 560 ==
LOC: H.TCU 16:27
PROVIDERS: ADMIT Hospitalist; ATTEND Hospitalist
PROC: F07Z9FZ Gait Training/Functional Ambulation Treatment using Assistive, Adaptive, Supportive or Protective Equipment (ICD-10-PCS; principal; 2018-02-24)
PROC: F07M6FZ Therapeutic Exercise Treatment of Musculoskeletal System - Whole Body using Assistive, Adaptive, Supportive or Protective Equipment (ICD-10-PCS; 2018-02-24)
PROC: F08Z4FZ Home Management Treatment using Assistive, Adaptive, Supportive or Protective Equipment (ICD-10-PCS; 2018-02-24)
PROC: 0HBRXZZ Excision of Toe Nail, External Approach (ICD-10-PCS; 2018-03-06)
PROC: 0HBRXZZ Excision of Toe Nail, External Approach (ICD-10-PCS; 2018-03-06)
PROC: 0HBRXZZ Excision of Toe Nail, External Approach (ICD-10-PCS; 2018-03-06)
PROC: 0HBRXZZ Excision of Toe Nail, External Approach (ICD-10-PCS; 2018-03-06)
PROC: 0HBRXZZ Excision of Toe Nail, External Approach (ICD-10-PCS; 2018-03-06)
PROC: 0HBRXZZ Excision of Toe Nail, External Approach (ICD-10-PCS; 2018-03-06)
PROC: 0HBRXZZ Excision of Toe Nail, External Approach (ICD-10-PCS; 2018-03-06)
PROC: 0HBRXZZ Excision of Toe Nail, External Approach (ICD-10-PCS; 2018-03-06)
PROC: 0HBRXZZ Excision of Toe Nail, External Approach (ICD-10-PCS; 2018-03-06)
PROC: 0HBRXZZ Excision of Toe Nail, External Approach (ICD-10-PCS; 2018-03-06)
DX: Z47.1 Aftercare following joint replacement surgery (principal); N39.0 Urinary tract infection, site not specified; Z96.642 Presence of left artificial hip joint; Z96.652 Presence of left artificial knee joint; M19.90 Unspecified osteoarthritis, unspecified site; S72.012D Unspecified intracapsular fracture of left femur, subsequent encounter for closed fracture with routine healing; W10.9XXD Fall (on) (from) unspecified stairs and steps, subsequent encounter; E78.00 Pure hypercholesterolemia, unspecified; E78.5 Hyperlipidemia, unspecified; I10 Essential (primary) hypertension; M10.9 Gout, unspecified; S72.002D Fracture of unspecified part of neck of left femur, subsequent encounter for closed fracture with routine healing; Z79.4 Long term (current) use of insulin; Z87.891 Personal history of nicotine dependence; Z90.49 Acquired absence of other specified parts of digestive tract; Z90.710 Acquired absence of both cervix and uterus; E11.9 Type 2 diabetes mellitus without complications; L60.8 Other nail disorders